=== PATIENT | male | born 1930 | race Caucasian/White ===

== ENCOUNTER 2017-01-21 11:30 | Emergency (ER) | payer MEDICARE, BC, OTHER ==
[2017-01-21] MEDS ORDERED: TOPICAL SKIN ADHESIVE 1 EACH AMP TOPICAL STA (11:56)
[2017-01-21] MEDS ORDERED: SODIUM CHLORIDE 0.9% 1,000 ML IV STA (11:56)
[2017-01-21] MEDS ORDERED: DIPH,PERTUS(ACELL)TETVAC-LF 0.5 ML VIAL IM ONE (11:56)
[2017-01-21] MEDS ORDERED: MECLIZINE 12.5 MG TAB PO STA (11:56)
[2017-01-21] MEDS ORDERED: METOCLOPRAMIDE 5 MG/ML 2 ML VIAL IVP STA (11:56)
[2017-01-21] MEDS ORDERED: SCOPOLAMINE 1.5MG/72HR PATCH TRANSDERM STA (11:57)
--- NOTE | 2017-01-21 12:00 | ED ---
General Adult HPI - General Chief complaint: Dizziness Stated complaint: head injury from fall, vomiting, dizziness Time Seen by Provider: 01/21/17 11:46 Source: patient, family, RN notes reviewed Mode of arrival: wheelchair Limitations: no limitations - History of Present Illness Initial comments: Patient is a pleasant 86-year-old male presenting to the emergency department with dizziness. Majority of history is taken from the . Symptoms have recurred previously associated with vertigo. Symptoms seem worse today. Patient has had nausea with some vomiting. Patient did fall and hit his head. Patient believes female passed out for a second. No other injuries. No neck or back pain. No chest pain or dyspnea. No abdominal pain. Unclear last tetanus immunization. Patient states every time he moves he gets more dizzy. Symptoms improved with rest. - Related Data Home Medications Medication Instructions Recorded Confirmed ALPRAZolam [Xanax] 0.5 mg PO BID PRN 01/21/17 01/21/17 ARIPiprazole [Abilify] 2 mg PO HS 01/21/17 01/21/17 Allopurinol [Zyloprim] 100 mg PO BID 01/21/17 01/21/17 Aspirin EC [Ecotrin Low Dose] 81 mg PO DAILY 01/21/17 01/21/17 Atorvastatin [Lipitor] 40 mg PO DAILY 01/21/17 01/21/17 Cinacalcet HCl [Sensipar] 30 mg PO MOFR 01/21/17 01/21/17 Ofbexnzuxisydn-ZU-Ujjqtuipww 1 tab PO DAILY 01/21/17 01/21/17 [Folbic] DULoxetine HCL [Cymbalta] 30 mg PO DAILY 01/21/17 01/21/17 Digoxin [Lanoxin] 125 mcg PO DAILY 01/21/17 01/21/17 Diphenox-Atrop 2.5-0.025 mg 2 tab PO TID PRN 01/21/17 01/21/17 [Lomotil] Furosemide [Lasix] 40 mg PO DAILY 01/21/17 01/21/17 Ipratropium Nebulized [Atrovent 0.5 mg INHALATION RT-QID 01/21/17 01/21/17 Nebulized] Isosorbide Mononitrate ER [Imdur] 30 mg PO DAILY 01/21/17 01/21/17 Levothyroxine Sodium [Synthroid] 125 mcg PO DAILY 01/21/17 01/21/17 Meclizine [Antivert] 25 mg PO TID 01/21/17 01/21/17 Memantine [Namenda] 10 mg PO AC-BID 01/21/17 01/21/17 Metoprolol Succinate (ER) [Toprol 12.5 mg PO BID 01/21/17 01/21/17 XL] Mirtazapine [Remeron] 30 mg PO HS 01/21/17 01/21/17 Nitroglycerin Sl Tabs [Nitrostat] 0.4 mg SUBLINGUAL Q5M PRN 01/21/17 01/21/17 Tamsulosin [Flomax] 0.4 mg PO DAILY 01/21/17 01/21/17 Valsartan [Diovan] 80 mg PO DAILY 01/21/17 01/21/17 Allergies Allergy/AdvReac Type Severity Reaction Status Date / Time No Known Allergies Allergy Verified 01/21/17 13:21 Review of Systems ROS Statement: Those systems with pertinent positive or pertinent negative responses have been documented in the HPI. ROS Other: All systems not noted in ROS Statement are negative. Constitutional: Denies: fever Eyes: Denies: eye pain ENT: Denies: ear pain Respiratory: Denies: cough Cardiovascular: Denies: chest pain Endocrine: Denies: fatigue Gastrointestinal: Denies: abdominal pain Genitourinary: Denies: dysuria Musculoskeletal: Denies: back pain Skin: Denies: rash Neurological: Reports: vertigo. Denies: weakness Past Medical History Past Medical History: COPD, Dementia, Renal Disease Additional Past Medical History / Comment(s): aneurysm, colon cancer History of Any Multi-Drug Resistant Organisms: None Reported Past Surgical History: Heart Catheterization With Stent Past Psychological History: No Psychological Hx Reported Smoking Status: Former smoker Past Alcohol Use History: None Reported Past Drug Use History: None Reported General Exam Limitations: no limitations General appearance: alert, in no apparent distress Head exam: Present: other (Forehead soft tissue swelling and laceration) Eye exam: Present: normal appearance, PERRL ENT exam: Present: normal oropharynx Neck exam: Present: normal inspection. Absent: tenderness Respiratory exam: Present: normal lung sounds bilaterally Cardiovascular Exam: Present: bradycardia GI/Abdominal exam: Present: soft. Absent: tenderness Extremities exam: Present: normal inspection, full ROM. Absent: tenderness Neurological exam: Present: alert, CN II-XII intact. Absent: motor sensory deficit Expanded Cranial nerves: EOM's Intact: Normal Motor strength exam: RUE: 5, LUE: 5, RLE: 5, LLE: 5 Psychiatric exam: Present: normal affect, normal mood Skin exam: Present: other (Forehead laceration and soft tissue swelling) Course Vital Signs 01/21/17 01/21/17 01/21/17 11:32 12:52 14:19 Temperature 97.5 F L Pulse Rate 48 L 51 L 50 L Respiratory 20 16 20 Rate Blood Pressure 150/80 161/87 187/98 O2 Sat by Pulse 94 L 96 94 L Oximetry - Reevaluation(s) Reevaluation #1: 01/21/17 14:13 Case was discussed in detail with neurology, Dr. Kahn who does recommend transfer. Patient reevaluated and feels better and is more conversive. Patient and family updated on results and plan. EKG Findings - EKG Comments: EKG Findings:: Paced rhythm at 50. Motion artifact is present. OH 134. QRS 118. QT 402. QTC 366. Left axis. Left anterior fascicular block. Poor R- wave progression. No acute ST change. Procedures - Laceration Laceration #1 Consent Obtained: verbal consent Time Out Performed: Yes Indication: laceration Site: face (Forehead) Size (cm): 3 Description: linear Pre-repair: irrigated extensively Type of Sutures: other (Closed with Dermabond) Patient Tolerated Procedure: well, no complications Medical Decision Making - Medical Decision Making Case was discussed with Dr. Holden from [facility], who will accept transfer. - Lab Data Result diagrams: 01/21/17 12:10 01/21/17 12:10 Lab Results 01/21/17 01/21/17 01/21/17 Range/Units 12:10 12:10 12:10 WBC 9.3 (3.8-10.6) k/uL RBC 4.82 (4.30-5.90) m/uL Hgb 14.4 (13.0-17.5) gm/dL Hct 44.0 (39.0-53.0) % MCV 91.3 (80.0-100.0) fL MCH 30.0 (25.0-35.0) pg MCHC 32.8 (31.0-37.0) g/dL RDW 16.6 H (11.5-15.5) % Plt Count 169 (150-450) k/uL Neutrophils % 84 % Lymphocytes % 9 % Monocytes % 4 % Eosinophils % 1 % Basophils % 0 % Neutrophils # 7.8 H (1.3-7.7) k/uL Lymphocytes # 0.8 L (1.0-4.8) k/uL Monocytes # 0.4 (0-1.0) k/uL Eosinophils # 0.1 (0-0.7) k/uL Basophils # 0.0 (0-0.2) k/uL Anisocytosis Slight PT (9.0-12.0) sec INR (<1.2) APTT (22.0-30.0) sec Sodium 144 (137-145) mmol/L Potassium 4.1 (3.5-5.1) mmol/L Chloride 108 H (98-107) mmol/L Carbon Dioxide 23 (22-30) mmol/L Anion Gap 13 mmol/L BUN 24 H (9-20) mg/dL Creatinine 1.52 H (0.66-1.25) mg/dL Est GFR (MDRD) Af Amer 53 (>60 ml/min/1.73 sqM) Est GFR (MDRD) Non-Af 44 (>60 ml/min/1.73 sqM) Glucose 134 H (74-99) mg/dL Calcium 9.8 (8.4-10.2) mg/dL Magnesium 1.9 (1.6-2.3) mg/dL Total Bilirubin 0.9 (0.2-1.3) mg/dL AST 31 (17-59) U/L ALT 45 (21-72) U/L Alkaline Phosphatase 159 H (38-126) U/L Total Creatine Kinase 112 (55-170) U/L CK-MB (CK-2) 1.6 (0.0-2.4) ng/mL CK-MB (CK-2) Rel Index 1.4 Troponin I <0.012 (0.000-0.034) ng/mL Total Protein 7.1 (6.3-8.2) g/dL Albumin 4.2 (3.5-5.0) g/dL Urine Color Urine Appearance (Clear) Urine pH (5.0-8.0) Ur Specific [place] (1.001-1.035) Urine Protein (Negative) Urine Glucose (UA) (Negative) Urine Ketones (Negative) Urine Blood (Negative) Urine Nitrite (Negative) Urine Bilirubin (Negative) Urine Urobilinogen (<2.0) mg/dL Ur Leukocyte Esterase (Negative) 01/21/17 01/21/17 Range/Units 12:10 12:56 WBC (3.8-10.6) k/uL RBC (4.30-5.90) m/uL Hgb (13.0-17.5) gm/dL Hct (39.0-53.0) % MCV (80.0-100.0) fL MCH (25.0-35.0) pg MCHC (31.0-37.0) g/dL RDW (11.5-15.5) % Plt Count (150-450) k/uL Neutrophils % % Lymphocytes % % Monocytes % % Eosinophils % % Basophils % % Neutrophils # (1.3-7.7) k/uL Lymphocytes # (1.0-4.8) k/uL Monocytes # (0-1.0) k/uL Eosinophils # (0-0.7) k/uL Basophils # (0-0.2) k/uL Anisocytosis PT 11.0 (9.0-12.0) sec INR 1.1 (<1.2) APTT 23.2 (22.0-30.0) sec Sodium (137-145) mmol/L Potassium (3.5-5.1) mmol/L Chloride (98-107) mmol/L Carbon Dioxide (22-30) mmol/L Anion Gap mmol/L BUN (9-20) mg/dL Creatinine (0.66-1.25) mg/dL Est GFR (MDRD) Af Amer (>60 ml/min/1.73 sqM) Est GFR (MDRD) Non-Af (>60 ml/min/1.73 sqM) Glucose (74-99) mg/dL Calcium (8.4-10.2) mg/dL Magnesium (1.6-2.3) mg/dL Total Bilirubin (0.2-1.3) mg/dL AST (17-59) U/L ALT (21-72) U/L Alkaline Phosphatase (38-126) U/L Total Creatine Kinase (55-170) U/L CK-MB (CK-2) (0.0-2.4) ng/mL CK-MB (CK-2) Rel Index Troponin I (0.000-0.034) ng/mL Total Protein (6.3-8.2) g/dL Albumin (3.5-5.0) g/dL Urine Color Colorless Urine Appearance Clear (Clear) Urine pH 5.5 (5.0-8.0) Ur Specific [place] 1.006 (1.001-1.035) Urine Protein Negative (Negative) Urine Glucose (UA) Negative (Negative) Urine Ketones Negative (Negative) Urine Blood Negative (Negative) Urine Nitrite Negative (Negative) Urine Bilirubin Negative (Negative) Urine Urobilinogen <2.0 (<2.0) mg/dL Ur Leukocyte Esterase Negative (Negative) - Radiology Data Radiology results: image reviewed (Computed tomography scan of the brain shows 3.5 mm subdural hematoma. Attenuation suggestive acute rather than acute. Chest x-ray shows interstitial markings increased. Prior endovascular aortic stent graft) Disposition Clinical Impression: Subdural hematoma Disposition: OTHER INSTITUTION NOT DEFINED Referrals: Harvinder Jimenez MD [Primary Care Provider] - 1-2 days Time of Disposition: 14:25 - Out of Hospital Transfer - Req. Specs Out of Hospital Transfer - Requested Specifics: Other Emergency Center
[2017-01-21 12:30] LABS: Calcium 9.8 mg/dL (8.4-10.2); Magnesium 1.9 mg/dL (1.6-2.3); Potassium 4.1 mmol/L (3.5-5.1); Total Bilirubin 0.9 mg/dL (0.2-1.3); Total Protein 7.1 g/dL (6.3-8.2)
[2017-01-21 12:35] LABS: Anisocytosis Slight; Basophils % (A) 0 %; CH 30.8; Eosinophils # (A) 0.1 k/uL (0-0.7); Eosinophils % (A) 1 %; HGB 14.4 gm/dL (13.0-17.5); Luc # (Auto) 0.09; Luc % (Auto) 1; Lymphocytes # (A) 0.8 k/uL (1.0-4.8); Lymphocytes % (A) 9 %; MCHC 32.8 g/dL (31.0-37.0); MCV 91.3 fL (80.0-100.0); Mean Platelet Volume 7.4; Monocytes # (A) 0.4 k/uL (0-1.0); Monocytes % (A) 4 %; Neutrophils # (A) 7.8 k/uL (1.3-7.7); Neutrophils % (A) 84 %; RBC 4.82 m/uL (4.30-5.90); RDW 16.6 % (11.5-15.5); WBC 9.3 k/uL (3.8-10.6); WBC (Perox) 9.34
[2017-01-21 12:47] LABS: Creatine Kinase 112 U/L (55-170)
[2017-01-21 12:48] LABS: INR 1.1 (<1.2); Partial Thromboplastin Time 23.2 sec (22.0-30.0)
--- NOTE | 2017-01-21 12:50 | CT ---
EXAMINATION TYPE: CT brain wo con DATE OF EXAM: 01/21/2017 COMPARISON: 10/17/2014 HISTORY: 86-year-old male Patient fell and hit left anterior superior forehead, laceration at site. Patient complains of headache, dizziness, nausea, and vomiting post fall. TECHNIQUE: Examination was done in axial plane without intravenous contrast. Coronal and sagittal r econstructions performed. CT DLP: 904.1 mGycm Automated exposure control for dose reduction was used. FINDINGS: Skin laceration with a moderate to large left frontal scalp hematoma. There is a tiny 3.5 mm thick isodense extra-axial collection along the left frontal convexity. No cherelle varial fracture. Otherwise, no evidence for acute intracranial hemorrhage, acute ischemic change, mass, mass effect, o r midline shift. No effacement of cerebral sulci. Garcia-white matter differentiation is maintained. Moderate patchy white matter hypodensities. Moderate generalized supratentorial volume loss with sec ondary prominence to the ventricular system. Partial opacification of the right greater than left mastoid air cells. Opacification extends into th e right epitympanum of the middle ear cavity. Mild mucosal thickening in the ethmoid air cells. IMPRESSION: 1. Focal left frontal soft tissue injury with scalp hematoma. No underlying calvarial fracture. 2. There is a 3.5 mm crescentic extra-axial collection along the left frontal convexity. The attenuat ion suggests a subacute rather than acute tiny subdural hematoma. No mass effect or midline shift. No acute intracranial bleeding seen. Follow-up as clinically indicated. 3. Moderate atrophy and changes of chronic small vessel ischemic disease.
--- NOTE | 2017-01-21 12:53 | XR ---
EXAMINATION TYPE: XR chest 2V DATE OF EXAM: 01/21/2017 COMPARISON: 03/09/2012 HISTORY: 86-year-old male with dizziness TECHNIQUE: Frontal and lateral views FINDINGS: Left anterior chest wall pacemaker generator with right atrial and right ventricular leads. Endovascu lar stent graft repair of the distal arch and descending thoracic aorta redemonstrated. Heart is bord rajiv to mildly enlarged. Mild diffuse interstitial and vascular prominence. Some patchy medial righ t basilar opacity is noted. ACDF hardware. End-stage degenerative changes at the left greater than ri ght shoulders. IMPRESSION: 1. Correlate to exclude CHF with mild pulmonary vascular congestion. 2. Patchy medial right basilar atelectasis or early infiltrate. 3. Prior endovascular aortic stent graft repair.
[2017-01-21 12:58] LABS: Creatine Kinase MB 1.6 ng/mL (0.0-2.4); Troponin I <0.012 ng/mL (0.000-0.034)
[2017-01-21 13:07] LABS: Appearance,Urine Clear (Clear); Bilirubin,Urine Negative (Negative); Glucose,Urine (UA) Negative (Negative); Ketones,Urine Negative (Negative); Leukocyte Esterase,Urine Negative (Negative); Nitrite,Urine Negative (Negative); PH, Urine 5.5 (5.0-8.0); Protein,Urine Negative (Negative); Specific Gravity,Urine 1.006 (1.001-1.035); UA Billing (MACRO vs. MICRO) CHEM; Urobilinogen,Urine <2.0 mg/dL (<2.0)
[2017-01-21] MEDS ORDERED: LORazepam 2 MG/ML INJ IV STA (14:32)
[2017-01-21 14:42] VITALS: BP 179/83; PULSE 51; RESP 18; TEMP 96.9
== END 2017-01-21 15:04 | disposition short-term general hospital (02) ==
LOC: EC 11:30
DX: S06.5X9A Traumatic subdural hemorrhage with loss of consciousness of unspecified duration, initial encounter (principal); S01.81XA Laceration without foreign body of other part of head, initial encounter; J44.9 Chronic obstructive pulmonary disease, unspecified; F03.90 Unspecified dementia, unspecified severity, without behavioral disturbance, psychotic disturbance, mood disturbance, and anxiety; Z23 Encounter for immunization; Z85.038 Personal history of other malignant neoplasm of large intestine; Z87.891 Personal history of nicotine dependence; Z79.51 Long term (current) use of inhaled steroids; Z79.82 Long term (current) use of aspirin; Z79.899 Other long term (current) drug therapy; W01.198A Fall on same level from slipping, tripping and stumbling with subsequent striking against other object, initial encounter
CPT/HCPCS: 96361 ×4; 12013 ×2; 90471 ×2; 96374 ×2; 96375 ×2; 99285 ×2; 36415; 93005; 80053; 82550; 82553; 80162; 83735; 84484; 85025; 85610; 85730; 81003; 71020; 70450; 90715; J2060; J2765

== ENCOUNTER 2018-09-26 12:58 | Observation (INO) | payer MEDICARE, OTHER ==
[2018-09-26] MEDS ORDERED: DIAZEPAM 5 MG/ML 2 ML INJ IVP STA (13:32)
--- NOTE | 2018-09-26 13:36 | ED ---
General Adult HPI - General Chief complaint: Neuro Symptoms/Deficit Stated complaint: Rt side weakness/dizziness Time Seen by Provider: 09/26/18 13:00 Source: patient, family, RN notes reviewed Mode of arrival: wheelchair Limitations: physical limitation - History of Present Illness Initial comments: This is an 88-year-old male who presents emergency Department with a past medical history significant for colon cancer which according to his he has been treated for. Patient also has a history of vertigo and has been on Antivert all week and it has not improved his symptoms. Patient states the dizziness seems to be getting worse so his primary told to come the emergency department. Patient states anytime he moves his head he gets extremely dizzy and nauseated but has yet to vomit. Patient denies any increased deficit is hearing patient denies any new tinnitus. Patient denies any headache. Patient denies any palpitations chest pain difficulty breathing shortness of breath. Patient denies abdominal pain. Patient states it feels like it's in a fall but not pass out. - Related Data Home Medications Medication Instructions Recorded Confirmed ALPRAZolam [Xanax] 0.5 mg PO BID PRN 01/21/17 09/26/18 ARIPiprazole [Abilify] 2 mg PO HS 01/21/17 09/26/18 Aspirin EC [Ecotrin Low Dose] 81 mg PO DAILY 01/21/17 09/26/18 Atorvastatin [Lipitor] 40 mg PO DAILY 01/21/17 09/26/18 Wqcuoohxizqkqs-OI-Oufwmhqcqe 1 tab PO DAILY 01/21/17 09/26/18 [Folbic] DULoxetine HCL [Cymbalta] 30 mg PO DAILY 01/21/17 09/26/18 Digoxin [Lanoxin] 125 mcg PO DAILY 01/21/17 09/26/18 Diphenox-Atrop 2.5-0.025 mg 2 tab PO TID PRN 01/21/17 09/26/18 [Lomotil] Furosemide [Lasix] 40 mg PO DAILY 01/21/17 09/26/18 Levothyroxine Sodium [Synthroid] 125 mcg PO DAILY 01/21/17 09/26/18 Meclizine [Antivert] 25 mg PO TID 01/21/17 09/26/18 Memantine [Namenda] 10 mg PO AC-BID 01/21/17 09/26/18 Metoprolol Succinate (ER) [Toprol 12.5 mg PO BID 01/21/17 09/26/18 XL] Mirtazapine [Remeron] 30 mg PO HS 01/21/17 09/26/18 Nitroglycerin Sl Tabs [Nitrostat] 0.4 mg SUBLINGUAL Q5M PRN 01/21/17 09/26/18 Allergies Allergy/AdvReac Type Severity Reaction Status Date / Time warfarin [From Coumadin] AdvReac Unknown Verified 09/26/18 14:00 Review of Systems ROS Statement: Those systems with pertinent positive or pertinent negative responses have been documented in the HPI. ROS Other: All systems not noted in ROS Statement are negative. Past Medical History Past Medical History: Chest Pain / Angina, COPD, Dementia, Hyperlipidemia, Hypertension, Myocardial Infarction (ID), Renal Disease Additional Past Medical History / Comment(s): aneurysm, colon cancer History of Any Multi-Drug Resistant Organisms: None Reported Past Surgical History: Heart Catheterization With Stent Additional Past Surgical History / Comment(s): aneurysm repair to heart and abd Past Psychological History: Depression Smoking Status: Former smoker Past Alcohol Use History: None Reported Past Drug Use History: None Reported General Exam - General Exam Comments Initial Comments: GENERAL: Patient is well-developed and well-nourished. Patient is nontoxic and well- hydrated and is in no acute distress. ENT: Neck is soft and supple. No significant lymphadenopathy is noted. Oropharynx is clear. Moist mucous membranes. Neck has full range of motion without eliciting any pain. EYES: The sclera were anicteric and conjunctiva were pink and moist. Extraocular movements were intact and pupils were equal round and reactive to light. Eyelids were unremarkable. PULMONARY: Unlabored respirations. Good breath sounds bilaterally. No audible rales rhonchi or wheezing was noted. CARDIOVASCULAR: There is a regular rate and rhythm without any murmurs gallops or rubs. ABDOMEN: Soft and nontender with normal bowel sounds. No palpable organomegaly was noted. There is no palpable pulsatile mass. SKIN: Skin is clear with no lesions or rashes and otherwise unremarkable. NEUROLOGIC: Patient is alert and oriented x3. Cranial nerves II through XII are grossly intact. Motor and sensory are also intact. Normal speech, volume and content. Symmetrical smile. Cerebellar testing finger to nose is normal bilaterally MUSCULOSKELETAL: Normal extremities with adequate strength and full range of motion. No lower extremity swelling or edema. No calf tenderness. LYMPHATICS: No significant lymphadenopathy is noted PSYCHIATRIC: Normal psychiatric evaluation. Limitations: physical limitation Course Vital Signs 09/26/18 09/26/18 13:00 15:00 Temperature 98.1 F Pulse Rate 49 L 50 L Respiratory 18 18 Rate Blood Pressure 152/78 158/92 O2 Sat by Pulse 99 96 Oximetry Medical Decision Making - Medical Decision Making EKG shows a paced rhythm with an occasional PVC at a rate of 56 bpm DC interval is 242 QRS is 104 QT interval 424 QTC is 409. Patient is not experiencing any chest pain I will begin to reevaluate the patient he continued to be dizzy. I spoke with Dr. Guevara he agreed to admit the patient he wanted a consult for neurology. - Lab Data Result diagrams: 09/26/18 13:50 09/26/18 13:50 Lab Results 09/26/18 09/26/18 09/26/18 Range/Units 13:50 13:50 13:50 WBC 10.3 (3.8-10.6) k/uL RBC 4.97 (4.30-5.90) m/uL Hgb 14.4 (13.0-17.5) gm/dL Hct 43.8 (39.0-53.0) % MCV 88.1 (80.0-100.0) fL MCH 29.0 (25.0-35.0) pg MCHC 32.9 (31.0-37.0) g/dL RDW 14.8 (11.5-15.5) % Plt Count 199 (150-450) k/uL Neutrophils % 79 % Lymphocytes % 12 % Monocytes % 5 % Eosinophils % 2 % Basophils % 0 % Neutrophils # 8.2 H (1.3-7.7) k/uL Lymphocytes # 1.2 (1.0-4.8) k/uL Monocytes # 0.5 (0-1.0) k/uL Eosinophils # 0.2 (0-0.7) k/uL Basophils # 0.0 (0-0.2) k/uL PT 10.9 (9.0-12.0) sec INR 1.0 (<1.2) APTT 22.4 (22.0-30.0) sec Sodium 144 (137-145) mmol/L Potassium 4.6 (3.5-5.1) mmol/L Chloride 109 H (98-107) mmol/L Carbon Dioxide 25 (22-30) mmol/L Anion Gap 10 mmol/L BUN 25 H (9-20) mg/dL Creatinine 1.65 H (0.66-1.25) mg/dL Est GFR (CKD-EPI)AfAm 43 (>60 ml/min/1.73 sqM) Est GFR (CKD-EPI)NonAf 37 (>60 ml/min/1.73 sqM) Glucose 101 H (74-99) mg/dL Calcium 9.9 (8.4-10.2) mg/dL Magnesium 2.3 (1.6-2.3) mg/dL Total Bilirubin 1.4 H (0.2-1.3) mg/dL AST 33 (17-59) U/L ALT 38 (21-72) U/L Alkaline Phosphatase 139 H (38-126) U/L Troponin I (0.000-0.034) ng/mL Total Protein 7.2 (6.3-8.2) g/dL Albumin 4.4 (3.5-5.0) g/dL 09/26/18 Range/Units 13:50 WBC (3.8-10.6) k/uL RBC (4.30-5.90) m/uL Hgb (13.0-17.5) gm/dL Hct (39.0-53.0) % MCV (80.0-100.0) fL MCH (25.0-35.0) pg MCHC (31.0-37.0) g/dL RDW (11.5-15.5) % Plt Count (150-450) k/uL Neutrophils % % Lymphocytes % % Monocytes % % Eosinophils % % Basophils % % Neutrophils # (1.3-7.7) k/uL Lymphocytes # (1.0-4.8) k/uL Monocytes # (0-1.0) k/uL Eosinophils # (0-0.7) k/uL Basophils # (0-0.2) k/uL PT (9.0-12.0) sec INR (<1.2) APTT (22.0-30.0) sec Sodium (137-145) mmol/L Potassium (3.5-5.1) mmol/L Chloride (98-107) mmol/L Carbon Dioxide (22-30) mmol/L Anion Gap mmol/L BUN (9-20) mg/dL Creatinine (0.66-1.25) mg/dL Est GFR (CKD-EPI)AfAm (>60 ml/min/1.73 sqM) Est GFR (CKD-EPI)NonAf (>60 ml/min/1.73 sqM) Glucose (74-99) mg/dL Calcium (8.4-10.2) mg/dL Magnesium (1.6-2.3) mg/dL Total Bilirubin (0.2-1.3) mg/dL AST (17-59) U/L ALT (21-72) U/L Alkaline Phosphatase (38-126) U/L Troponin I <0.012 (0.000-0.034) ng/mL Total Protein (6.3-8.2) g/dL Albumin (3.5-5.0) g/dL Disposition Clinical Impression: Severe vertigo Disposition: ADMITTED IP TO THIS HOSP Referrals: Harvinder Jimenez MD [Primary Care Provider] - 1-2 days Time of Disposition: 16:19
[2018-09-26 14:08] LABS: Basophils % (A) 0 %; Eosinophils # (A) 0.2 k/uL (0-0.7); Eosinophils % (A) 2 %; HCT 43.8 % (39.0-53.0); HGB 14.4 gm/dL (13.0-17.5); Lymphocytes # (A) 1.2 k/uL (1.0-4.8); Lymphocytes % (A) 12 %; MCHC 32.9 g/dL (31.0-37.0); MCV 88.1 fL (80.0-100.0); Mean Platelet Volume 6.8; Monocytes # (A) 0.5 k/uL (0-1.0); Monocytes % (A) 5 %; Neutrophils # (A) 8.2 k/uL (1.3-7.7); Neutrophils % (A) 79 %; Platelet Count 199 k/uL (150-450); RBC 4.97 m/uL (4.30-5.90); RDW 14.8 % (11.5-15.5); WBC 10.3 k/uL (3.8-10.6)
[2018-09-26 14:16] LABS: Partial Thromboplastin Time 22.4 sec (22.0-30.0); Prothrombin Time 10.9 sec (9.0-12.0)
[2018-09-26 14:19] LABS: Albumin 4.4 g/dL (3.5-5.0); Calcium 9.9 mg/dL (8.4-10.2); Magnesium 2.3 mg/dL (1.6-2.3); Potassium 4.6 mmol/L (3.5-5.1); Total Bilirubin 1.4 mg/dL (0.2-1.3); Total Protein 7.2 g/dL (6.3-8.2)
--- NOTE | 2018-09-26 14:56 | CT ---
EXAMINATION TYPE: CT brain wo con DATE OF EXAM: 09/26/2018 COMPARISON: 01/21/2017 HISTORY: Right side weakness and dizziness CT DLP: 1168.4 mGycm Automated exposure control for dose reduction was used. FINDINGS: There is cerebral cortical atrophy. There is no mass effect nor midline shift. There is no sign of in tracranial hemorrhage. The calvarium is intact. IMPRESSION: CEREBRAL ATROPHY. NO ACUTE INTRACRANIAL ABNORMALITY. NO CHANGE COMPARED TO OLD EXAM.
--- NOTE | 2018-09-26 15:04 | XR ---
EXAMINATION TYPE: XR chest 2V DATE OF EXAM: 09/26/2018 COMPARISON: 01/21/2017 HISTORY: Dizziness TECHNIQUE: Frontal and lateral views of the chest are obtained. FINDINGS: There is no heart failure nor confluent pneumonic infiltrate. There is thoracic aortic ane urysm with stent in the descending thoracic aorta. There is spurring in the thoracic spine. There is no pleural effusion. There is left axillary pacemaker. IMPRESSION: Thoracic aortic aneurysm. No active cardiopulmonary disease. There is improved inspirati on compared to last exam. There is clearing of mild pulmonary congestion compared to last exam.
[2018-09-26] MEDS ORDERED: SODIUM CHLORIDE 0.9% 1,000 ML IV ONE (16:19)
[2018-09-26] MEDS ORDERED: MECLIZINE 25 MG TAB PO PRN (16:21)
--- NOTE | 2018-09-26 18:36 | P.CNNES ---
History of Present Illness Consult date: 09/26/18 Reason for Consult: Vertigo History of Present Illness: Patient is a 88-year-old male, who has history of intermittent dizziness and vertigo for years. Patient states that for the last 50 years he has history of motion sickness whenever he sits in the plane or the car. In the last 2 years it has got worse. He takes Antivert as needed. In the last 1 week the dizziness has gotten worse. Any time he moves his head or neck, he gets dizziness which lasts for a minute or so. If he sits up, the dizziness will persist, until he lays down. If he is not moving, he denies any dizziness or vertigo. He does have significant hearing loss bilaterally, also has intermittent tinnitus. He does not remember seeing an ENT specialist in the past. Patient denies any focal symptoms. Denies any diplopia. Patient had computed tomography scan of the head, which revealed cerebral atrophy. No acute intracranial process. No evidence of paranasal sinus disease. No evidence of excessive cerumen in the external auditory canal. Chest x-ray showed thoracic aortic aneurysm. There is improvement inspiration compared to last exam. EKG showed atrial paced rhythm with prolonged AV conduction with occasional supraventricular complexes and with occasional premature ventricular complexes. Review of Systems As per HPI. Denies any focal numbness tingling or weakness. Denies any neck or back pain. Denies any shortness of breath wheezing or cough. Complains of significant hearing loss, occasional tinnitus. Past Medical History Past Medical History: Chest Pain / Angina, COPD, Dementia, Hyperlipidemia, Hypertension, Myocardial Infarction ([place]), Renal Disease Additional Past Medical History / Comment(s): aneurysm, colon cancer History of Any Multi-Drug Resistant Organisms: None Reported Past Surgical History: Heart Catheterization With Stent Additional Past Surgical History / Comment(s): aneurysm repair to heart and abd Past Psychological History: Depression Smoking Status: Former smoker Past Alcohol Use History: None Reported Past Drug Use History: None Reported Medications and Allergies Home Medications Medication Instructions Recorded Confirmed Type ALPRAZolam [Xanax] 0.5 mg PO BID PRN 01/21/17 09/26/18 History ARIPiprazole [Abilify] 2 mg PO HS 01/21/17 09/26/18 History Aspirin EC [Ecotrin Low Dose] 81 mg PO DAILY 01/21/17 09/26/18 History Atorvastatin [Lipitor] 40 mg PO DAILY 01/21/17 09/26/18 History Powbzxozdyskdp-OT-Kmdeiruwhe 1 tab PO DAILY 01/21/17 09/26/18 History [Folbic] DULoxetine HCL [Cymbalta] 30 mg PO DAILY 01/21/17 09/26/18 History Digoxin [Lanoxin] 125 mcg PO DAILY 01/21/17 09/26/18 History Diphenox-Atrop 2.5-0.025 mg 2 tab PO TID PRN 01/21/17 09/26/18 History [Lomotil] Furosemide [Lasix] 40 mg PO DAILY 01/21/17 09/26/18 History Levothyroxine Sodium [Synthroid] 125 mcg PO DAILY 01/21/17 09/26/18 History Meclizine [Antivert] 25 mg PO TID 01/21/17 09/26/18 History Memantine [Namenda] 10 mg PO AC-BID 01/21/17 09/26/18 History Metoprolol Succinate (ER) [Toprol 12.5 mg PO BID 01/21/17 09/26/18 History XL] Mirtazapine [Remeron] 30 mg PO HS 01/21/17 09/26/18 History Nitroglycerin Sl Tabs [Nitrostat] 0.4 mg SUBLINGUAL Q5M PRN 01/21/17 09/26/18 History Allergies Allergy/AdvReac Type Severity Reaction Status Date / Time warfarin [From Coumadin] AdvReac Unknown Verified 09/26/18 14:00 Physical Examination - Vital Signs Vital Signs: Vital Signs Temp Pulse Resp BP Pulse Ox 09/26/18 16:31 98.4 F 50 L 18 136/87 96 09/26/18 15:00 50 L 18 158/92 96 09/26/18 13:00 98.1 F 49 L 18 152/78 99 Intake and Output 09/26/18 09/26/18 09/26/18 06:59 14:59 22:59 Other: Weight 85.275 kg Results Patient's folic acid is normal previously. TSH has not been checked since 2013. - Laboratory Findings CBC and BMP: 09/26/18 13:50 09/26/18 13:50 Abnormal Lab Findings: Abnormal Labs 09/26/18 09/26/18 13:50 13:50 Neutrophils # 8.2 H Chloride 109 H BUN 25 H Creatinine 1.65 H Glucose 101 H Total Bilirubin 1.4 H Alkaline Phosphatase 139 H Assessment and Plan Assessment: * Probable benign positional peripheral vertigo. Rule out Mnire's disease. 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 Plan: * Suggest vestibular rehabilitation for possible BPPV. * Consider ENT testing to evaluate for electronystagmogram, and rule out Mnire's disease. This can be performed as an outpatient. * Continue Antivert as needed. * We will check B12, folate, TSH and a carotid Doppler.
[2018-09-26] MEDS ORDERED: DIPHENOX-ATROP 2.5-0.025 MG 1 EACH TAB PO PRN (21:28)
[2018-09-26] MEDS ORDERED: NITROGLYCERIN SL TABS 0.4 MG TAB SUBLINGUAL PRN (21:28)
[2018-09-26] MEDS ORDERED: ALPRAZolam 0.5 MG TAB PO PRN (21:28)
[2018-09-26] MEDS ORDERED: ARIPiprazole 2 MG TAB PO SCH (21:45)
[2018-09-26] MEDS ORDERED: MIRTAZAPINE 15 MG TAB PO SCH (21:45)
[2018-09-26] MEDS: ATORVASTATIN 40 MG TAB PO SCH (22:05)
[2018-09-26] MEDS: MEMANTINE 10 MG TAB PO SCH (22:05)
[2018-09-26] MEDS: DULoxetine HCL 30 MG CAPSULE.DR PO SCH (22:05)
[2018-09-26] MEDS: METOPROLOL SUCCINATE (ER) 25 MG TAB.ER.24H PO SCH (22:06)
[2018-09-27] MEDS ORDERED: LEVOTHYROXINE 125 MCG TAB PO SCH (06:30)
[2018-09-27] MEDS: ATORVASTATIN 40 MG TAB PO SCH (08:21)
[2018-09-27] MEDS: METOPROLOL SUCCINATE (ER) 25 MG TAB.ER.24H PO SCH (08:22)
[2018-09-27] MEDS: DULoxetine HCL 30 MG CAPSULE.DR PO SCH (08:22)
[2018-09-27] MEDS: MEMANTINE 10 MG TAB PO SCH ×2 (08:22→17:27)
[2018-09-27] MEDS ORDERED: ASPIRIN 81 MG PO SCH (09:00)
[2018-09-27] MEDS ORDERED: DIGOXIN 125 MCG TAB PO SCH (09:00)
[2018-09-27] MEDS ORDERED: FUROSEMIDE 40 MG TAB PO SCH (09:00)
--- NOTE | 2018-09-27 10:15 | US ---
EXAMINATION TYPE: US carotid duplex BILAT DATE OF EXAM: 09/27/2018 COMPARISON: NONE CLINICAL HISTORY: Vertigo. Vertigo EXAM MEASUREMENTS: RIGHT: Peak Systolic Velocity (PSV) cm/sec ----- Right CCA: 65.1 ----- Right ICA: 68.6 ----- Right ECA: 95.2 ICA/CCA ratio: 1.1 RIGHT: End Diastole cm/sec ----- Right CCA: 11.0 ----- Right ICA: 18.8 ----- Right ECA: 0.0 LEFT: Peak Systolic Velocity (PSV) cm/sec ----- Left CCA: 74.7 ----- Left ICA: 91.9 ----- Left ECA: 82.0 ICA/CCA ratio: 1.2 LEFT: End Diastole cm/sec ----- Left CCA: 11.0 ----- Left ICA: 23.7 ----- Left ECA: 0.0 VERTEBRALS (direction of flow): Right Vertebral: Antegrade Left Vertebral: Antegrade Rhythm: Normal Mild plaque bilateral bifurcations. No evidence of increased velocities. IMPRESSION: Mild degree of grayscale atheromatous plaquing with no sonographically evident hemodynam ically significant stenosis within either visualized carotid arterial system. Criteria for Assigning % of Stenosis / Diameter reduction (Estimation based on the indirect measurements of the internal carotid artery velocities (ICA PSV). 1. Normal (no stenosis)=ICA PSV < 125 cm/s: ratio < 2.0: ICA EDV<40 cm/s. 2. Less than 50% stenosis=ICA PSV < 125 cm/s: ratio < 2.0: ICA EDV<40 cm/s. 3. 50 to 69% stenosis=ICA PSV of 125 to 230 cm/s: ration 2.0 ? 4.0: ICA EDV 40-100 cm/s. 4. Greater than 70% stenosis to near occlusion= ICA PSV > 230 cm/s: ratio > 4.0: ICA EDV > 100 cm/s. 5. Near occlusion= ICA PSV velocities may be low or undetectable: variable ratio and ICA EDV. 6. Total occlusion=unable to detect flow.
[2018-09-27 14:22] VITALS: BP 131/81; PULSE 53; RESP 16; TEMP 98.3
--- NOTE | 2018-09-27 17:33 | P.PN ---
Subjective Progress Note Date: 09/27/18 Patient states he is doing much better. Offers no new complaints. Patient was able to sit up, and the dizziness have improved. No new focal symptoms. Objective - Vital Signs Vital signs: Vital Signs Temp 98.3 F 09/27/18 14:06 Pulse 53 L 09/27/18 14:06 Resp 16 09/27/18 14:06 BP 131/81 09/27/18 14:06 Pulse Ox 98 09/27/18 14:06 Intake & Output 09/26/18 09/27/18 09/27/18 18:59 06:59 18:59 Intake Total 900 Balance 900 Weight 85.275 kg Intake: Oral 900 Other: Voiding Method Toilet Urinal # Voids 2 2 # Bowel Movements 1 - Exam Nonfocal. - Labs CBC & Chem 7: 09/26/18 13:50 09/26/18 13:50 Labs: Abnormal Lab Results - Last 24 Hours (Table) 09/27/18 Range/Units 08:08 Vitamin B12 1981.0 H (200.0-944.0) pg/mL Assessment and Plan Assessment: * Probable benign positional peripheral vertigo. Rule out Mnire's disease. 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 Plan: * Suggest vestibular rehabilitation for possible BPPV. * Consider ENT testing to evaluate for electronystagmogram, and rule out Mnire's disease. This can be performed as an outpatient. * Continue Antivert as needed. * B12 normal at 1980, folate 15.1, TSH 2.19 normal and a carotid Doppler showed no significant stenosis. * Neurologically clear for discharge.
--- NOTE | 2018-09-27 23:10 | P.HPIM ---
History of Present Illness H&P Date: 09/27/18 Chief Complaint: Dizziness History of present complaint: This is a very pleasant 88-year-old patient I saw this morning. Patient follows Dr. price . Patient has got multiple medical process. Including some that are stable including COPD, hypertension, hyperlipidemia, coronary artery disease. Patient wasn't one-week history of feeling dizzy. It is somewhat better with lying down than with activity. Patient does get some nausea. This could buzzing in both the ears. No fever no chills. It has been going on for about a week. Somewhat progressive and worse. Hence finally decided to get to the ER. Neurology was consulted. No fever or chills. No change in speech. No focal neurological symptoms. No headache. No double vision. Review of systems: GEN.: None EYES: None HEENT: None NECK: None RESPIRATORY: None CARDIOVASCULAR: None GASTROINTESTINAL: None GENITOURINARY: None MUSCULOSKELETAL: Pain in the joints LYMPHATICS: None HEMATOLOGICAL: None PSYCHIATRY: None NEUROLOGICAL: As above, uses a walker Family history: Alcoholism Social history: Did smoke in the past. . Does use a walker. Physical examination: VITAL SIGNS: 98.1, 50, 18, 152/78, 99% room air GENERAL: Average built, laying in bed, comfortable. EYES: Pupils equal. Conjunctiva normal. HEENT: External appearance of nose and ears normal, oral cavity grossly normal. NECK: JVD not raised; masses not palpable. HEART: First and second heart sounds are normal; no edema. LUNGS: Respiratory rate normal; clear to auscultation. ABDOMEN: Soft, nontender, liver spleen not palpable, no masses palpable. LYMPHATICS: No lymph nodes palpable in the axilla and neck. PSYCH: Alert and oriented x3; mood and affect normal. NEUROLOGICAL: Cranial nerves grossly intact; no facial asymmetry, power and sensation grossly intact. Investigations: White count 10.3, hemoglobin 40.4, potassium 4.6, BUN 25, creatinine 1.65 Computed tomography scan of the brain showing cerebral atrophy with chronic changes Carotid Doppler showing no critical stenosis Assessment: Acute dizziness, but no fever or chills no cerebellar signs, or symptoms, with ear symptoms. Most likely inner ear/middle ear pathology. Need to rule out a central cause. Follow with neurology is being consulted. 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 neurology was consulted. Patient did have a carotid Doppler to and a computed tomography scan of the brain. Care was discussed with the patient. Past Medical History Past Medical History: Chest Pain / Angina, COPD, Dementia, Hyperlipidemia, Hypertension, Myocardial Infarction ([place]), Renal Disease Additional Past Medical History / Comment(s): aneurysm, colon cancer Last Myocardial Infarction Date:: unknown History of Any Multi-Drug Resistant Organisms: None Reported Past Surgical History: Heart Catheterization With Stent Additional Past Surgical History / Comment(s): aneurysm repair to heart and abd Past Anesthesia/Blood Transfusion Reactions: No Reported Reaction Date of Last Stent Placement:: unknown Past Psychological History: Depression Smoking Status: Former smoker Past Alcohol Use History: None Reported Past Drug Use History: None Reported - Past Family History Father Additional Family Medical History / Comment(s): alcoholic Mother Additional Family Medical History / Comment(s): anerysm, of [place] Medications and Allergies Home Medications Medication Instructions Recorded Confirmed Type ALPRAZolam [Xanax] 0.5 mg PO BID PRN 01/21/17 09/26/18 History ARIPiprazole [Abilify] 2 mg PO HS 01/21/17 09/26/18 History Aspirin EC [Ecotrin Low Dose] 81 mg PO DAILY 01/21/17 09/26/18 History Atorvastatin [Lipitor] 40 mg PO DAILY 01/21/17 09/26/18 History Gbkfyoltrqhxrl-FM-Znmcmgkros 1 tab PO DAILY 01/21/17 09/26/18 History [Folbic] DULoxetine HCL [Cymbalta] 30 mg PO DAILY 01/21/17 09/26/18 History Digoxin [Lanoxin] 125 mcg PO DAILY 01/21/17 09/26/18 History Diphenox-Atrop 2.5-0.025 mg 2 tab PO TID PRN 01/21/17 09/26/18 History [Lomotil] Furosemide [Lasix] 40 mg PO DAILY 01/21/17 09/26/18 History Levothyroxine Sodium [Synthroid] 125 mcg PO DAILY 01/21/17 09/26/18 History Meclizine [Antivert] 25 mg PO TID 01/21/17 09/26/18 History Memantine [Namenda] 10 mg PO AC-BID 01/21/17 09/26/18 History Metoprolol Succinate (ER) [Toprol 12.5 mg PO BID 01/21/17 09/26/18 History XL] Mirtazapine [Remeron] 30 mg PO HS 01/21/17 09/26/18 History Nitroglycerin Sl Tabs [Nitrostat] 0.4 mg SUBLINGUAL Q5M PRN 01/21/17 09/26/18 History Allergies Allergy/AdvReac Type Severity Reaction Status Date / Time warfarin [From Coumadin] AdvReac Unknown Verified 09/26/18 14:00 Physical Exam Vitals: Vital Signs Temp Pulse Pulse Resp BP BP Pulse Ox 09/27/18 08:00 18 09/27/18 05:36 97.7 F 52 L 18 158/82 96 09/26/18 21:30 98.1 F 53 L 18 151/78 96 09/26/18 16:31 98.4 F 50 L 18 136/87 96 09/26/18 15:00 50 L 18 158/92 96 09/26/18 13:00 98.1 F 49 L 18 152/78 99 Intake and Output 09/26/18 09/27/18 09/27/18 22:59 06:59 14:59 Intake Total 500 400 Balance 500 400 Intake: Oral 500 400 Other: Voiding Method Toilet Urinal # Voids 1 2 # Bowel Movements 1 1 Results CBC & Chem 7: 09/26/18 13:50 09/26/18 13:50 Labs: Abnormal Lab Results - Last 24 Hours (Table) 09/26/18 09/26/18 Range/Units 13:50 13:50 Neutrophils # 8.2 H (1.3-7.7) k/uL Chloride 109 H (98-107) mmol/L BUN 25 H (9-20) mg/dL Creatinine 1.65 H (0.66-1.25) mg/dL Glucose 101 H (74-99) mg/dL Total Bilirubin 1.4 H (0.2-1.3) mg/dL Alkaline Phosphatase 139 H (38-126) U/L Thrombosis Risk Factor Assmnt - Choose All That Apply Any of the Below Risk Factors Present?: Yes Each Factor Represents 1 point: Abnormal pulmonary function (COPD), Obesity (BMI >25) Other Risk Factors: Yes Each Risk Factor Represents 3 Points: Age 75 years or older, History of DVT/PE Other congenital or acquired thrombophilia - If yes, enter type in comment: No Thrombosis Risk Factor Assessment Total Risk Factor Score: 8 Thrombosis Risk Factor Assessment Level: High Risk
--- NOTE | 2018-09-27 23:46 | DS ---
DISCHARGE SUMMARY DATE OF ADMISSION: 09/26/2018 DATE OF DISCHARGE: 09/27/2018. FINAL DIAGNOSIS: 1. 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 2. Chronic obstructive pulmonary disease in an ex-smoker. 3. 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 4. Hyperlipidemia. 5. Essential hypertension. 6. Coronary artery disease with prior history of stent. 7. Chronic kidney disease stage [address] Solis from neurology. HOSPITAL COURSE: This patient presented with 1 week of dizziness, more so positional with some dizziness and tended to be tendinitis. No other neurological symptoms were present. Carotid Doppler did not show any critical stenosis. CT scan of the brain shows some cerebral atrophy, atrophy. The patient's EKG shows a atrial paced rhythm. The patient is cleared by Neurology to follow up with the ENT as an outpatient. The patient is very keen to go home. PHYSICAL EXAMINATION: Temperature 98.3, pulse 83, respiratory rate 16, blood pressure 130/81. LUNGS: Clear. No focal neurological symptoms. DISCHARGE MEDICATIONS: 1. Xanax 0.5 p.o. b.i.d. p.r.n. 2. Abilify 2 mg p.o. q.h.s. 3. Aspirin 81 mg p.o. daily. 4. Lipitor 40 mg p.o. daily. 5. Folbic 1 tablet p.o. daily. 6. Cymbalta 30 mg p.o. daily. 7. Digoxin 125 mcg p.o. daily. 8. Lomotil 2 tablets p.o. t.i.d. p.r.n. 9. Lasix 40 mg p.o. daily. 10.Synthroid 125 mcg p.o. daily. 11.Antivert 25 mg p.o. t.i.d. 12.Namenda 10 mg p.o. b.i.d. 13.Toprol-XL 12.5 p.o. b.i.d. 14.Remeron 30 mg p.o. q.h.s. 15.Nitrostat 0.4 sublingual q.5 p.r.n. FOLLOW UP: Dr. Santana on October 06, 2018; follow up with Dr. Andre Jimenez in [place] in [address] Barbara Bliss. MMWADEL / IJN: [id number] /
== END 2018-09-27 17:58 | disposition home or self-care (01) ==
LOC: EC 12:58 → 4MS4W 16:19
PROVIDERS: ADMIT Hospitalist; ATTEND Hospitalist
DX: R42 Dizziness and giddiness (principal); J44.9 Chronic obstructive pulmonary disease, unspecified; E78.5 Hyperlipidemia, unspecified; I25.10 Atherosclerotic heart disease of native coronary artery without angina pectoris; Z95.5 Presence of coronary angioplasty implant and graft; I12.9 Hypertensive chronic kidney disease with stage 1 through stage 4 chronic kidney disease, or unspecified chronic kidney disease; F03.90 Unspecified dementia, unspecified severity, without behavioral disturbance, psychotic disturbance, mood disturbance, and anxiety; N18.3 Chronic kidney disease, stage 3 (moderate); Z87.891 Personal history of nicotine dependence; H91.93 Unspecified hearing loss, bilateral; H93.13 Tinnitus, bilateral; R11.0 Nausea; R53.1 Weakness; I25.2 Old myocardial infarction; F32.9 Major depressive disorder, single episode, unspecified; E66.9 Obesity, unspecified; Z68.27 Body mass index [BMI] 27.0-27.9, adult; Z85.038 Personal history of other malignant neoplasm of large intestine; Z86.718 Personal history of other venous thrombosis and embolism; Z79.82 Long term (current) use of aspirin; Z79.899 Other long term (current) drug therapy; Z79.890 Hormone replacement therapy; Z88.8 Allergy status to other drugs, medicaments and biological substances; Z81.1 Family history of alcohol abuse and dependence
CPT/HCPCS: 36415; 70450; 71046; 80053; 82607; 82746; 83735; 84443; 84484; 85025; 85610; 85730; 86780; 93005; 93880; 96361; 96374; 99285

== ENCOUNTER 2019-04-09 08:12 | Emergency (ER) | payer MEDICARE, OTHER ==
[2019-04-09] MEDS ORDERED: methylPREDNISolone SOD SUCCI 125 MG/2 ML VIAL IV STA (08:35)
[2019-04-09] MEDS ORDERED: IPRATROPIUM-ALBUTEROL 3 ML NEB INHALATION STA (08:35)
--- NOTE | 2019-04-09 08:39 | ED ---
General Adult HPI - General Chief complaint: Shortness of Breath Stated complaint: MANUEL Time Seen by Provider: 04/09/19 08:17 Source: patient, family, RN notes reviewed Mode of arrival: wheelchair Limitations: physical limitation - History of Present Illness Initial comments: Patient is a pleasant 89-year-old male presenting to the emergency department w ith difficulty in breathing. Onset of symptoms was 3 days ago. Patient does have history of previous symptoms associated with COPD. Patient normally uses her inhaler once or twice a day however has been using it 3 times a day. Patient does cough up yellow sputum. No chest pain. No fever. No leg pain or leg swelling. - Related Data Home Medications Medication Instructions Recorded Confirmed ALPRAZolam [Xanax] 0.5 mg PO BID PRN 01/21/17 04/09/19 ARIPiprazole [Abilify] 2 mg PO HS 01/21/17 04/09/19 Aspirin EC [Ecotrin Low Dose] 81 mg PO DAILY 01/21/17 04/09/19 Atorvastatin [Lipitor] 40 mg PO DAILY 01/21/17 04/09/19 Qveawamipcjori-UG-Aaprgbmqrn 1 tab PO DAILY 01/21/17 04/09/19 [Folbic] DULoxetine HCL [Cymbalta] 30 mg PO DAILY 01/21/17 04/09/19 Digoxin [Lanoxin] 125 mcg PO DAILY 01/21/17 04/09/19 Diphenox-Atrop 2.5-0.025 mg 2 tab PO TID PRN 01/21/17 04/09/19 [Lomotil] Furosemide [Lasix] 40 mg PO DAILY 01/21/17 04/09/19 Levothyroxine Sodium [Synthroid] 125 mcg PO DAILY 01/21/17 04/09/19 Meclizine [Antivert] 25 mg PO BID 01/21/17 04/09/19 Memantine [Namenda] 10 mg PO AC-BID 01/21/17 04/09/19 Metoprolol Succinate (ER) [Toprol 25 mg PO BID 01/21/17 04/09/19 XL] Mirtazapine [Remeron] 30 mg PO HS 01/21/17 04/09/19 Nitroglycerin Sl Tabs [Nitrostat] 0.4 mg SUBLINGUAL Q5M PRN 01/21/17 04/09/19 Albuterol Nebulized [Ventolin 2.5 mg INHALATION RT-Q4H PRN 04/09/19 04/09/19 Nebulized] Fluticasone Nasal [place] [Flonase 1 spr EA NOSTRIL DAILY 04/09/19 04/09/19 Nasal [place]] Ipratropium [place] [Ipratropium 2 sprays EA NOSTRIL TID 04/09/19 04/09/19 [place] 0.03%] Omeprazole 20 mg PO DAILY 04/09/19 04/09/19 Tamsulosin [Flomax] 0.4 mg PO DAILY 04/09/19 04/09/19 Previous Rx's Medication Instructions Recorded Azithromycin [Zithromax Z-pack] 250 mg PO DIRECTED #6 tab 04/09/19 predniSONE 20 mg PO BID #10 tab 04/09/19 Allergies Allergy/AdvReac Type Severity Reaction Status Date / Time warfarin [From Coumadin] AdvReac Unknown Verified 04/09/19 09:39 Review of Systems ROS Statement: Those systems with pertinent positive or pertinent negative responses have been documented in the HPI. ROS Other: All systems not noted in ROS Statement are negative. Constitutional: Denies: fever Eyes: Denies: eye pain ENT: Denies: ear pain Respiratory: Reports: cough, dyspnea Cardiovascular: Denies: chest pain Endocrine: Reports: fatigue Gastrointestinal: Denies: abdominal pain Genitourinary: Denies: dysuria Musculoskeletal: Denies: back pain Skin: Denies: rash Neurological: Denies: weakness Past Medical History Past Medical History: Chest Pain / Angina, COPD, Dementia, Hyperlipidemia, Hypertension, Myocardial Infarction ([place]), Renal Disease Additional Past Medical History / Comment(s): aneurysm, colon cancer Last Myocardial Infarction Date:: unknown History of Any Multi-Drug Resistant Organisms: None Reported Past Surgical History: Heart Catheterization With Stent Additional Past Surgical History / Comment(s): aneurysm repair to heart and abd Past Anesthesia/Blood Transfusion Reactions: No Reported Reaction Date of Last Stent Placement:: unknown Past Psychological History: Depression Smoking Status: Former smoker Past Alcohol Use History: None Reported Past Drug Use History: None Reported - Past Family History Father Additional Family Medical History / Comment(s): alcoholic Mother Additional Family Medical History / Comment(s): anerysm, of [place] General Exam Limitations: physical limitation General appearance: alert, in no apparent distress Head exam: Present: normocephalic Eye exam: Present: normal appearance Neck exam: Present: normal inspection Respiratory exam: Present: decreased breath sounds Cardiovascular Exam: Present: regular rate, normal rhythm GI/Abdominal exam: Present: soft. Absent: tenderness Extremities exam: Present: normal inspection. Absent: pedal edema, calf tenderness Neurological exam: Present: alert Psychiatric exam: Present: normal affect, normal mood Skin exam: Present: normal color Course Vital Signs 04/09/19 04/09/19 04/09/19 08:15 08:45 08:50 Temperature 97.6 F Pulse Rate 66 50 L 50 L Respiratory 22 16 Rate Blood Pressure 187/92 187/105 O2 Sat by Pulse 96 100 Oximetry 04/09/19 08:53 Temperature Pulse Rate 49 L Respiratory Rate Blood Pressure O2 Sat by Pulse Oximetry EKG Findings - EKG Comments: EKG Findings:: Paced rhythm with a rate of 50. IL 132. QRS 110. QT 408. QTC 371. Left axis. LVH with repolarization changes. Nonspecific T waves. Poor R-wave progression. Medical Decision Making - Medical Decision Making Patient reevaluated and resting comfortably in bed, symptom-free. Patient is requesting discharge home. Spouse present. Patient is able to ambulate to the emergency department without any difficulty. Pulse ox remains 96% on room air. Patient family updated on results and need for follow-up. - Lab Data Result diagrams: 04/09/19 08:36 04/09/19 08:36 Lab Results 04/09/19 04/09/19 04/09/19 Range/Units 08:36 08:36 08:36 WBC 11.2 H (3.8-10.6) k/uL RBC 4.51 (4.30-5.90) m/uL Hgb 13.5 (13.0-17.5) gm/dL Hct 41.0 (39.0-53.0) % MCV 91.0 (80.0-100.0) fL MCH 30.0 (25.0-35.0) pg MCHC 33.0 (31.0-37.0) g/dL RDW 15.5 (11.5-15.5) % Plt Count 168 (150-450) k/uL Neutrophils % 80 % Lymphocytes % 10 % Monocytes % 6 % Eosinophils % 2 % Basophils % 1 % Neutrophils # 9.0 H (1.3-7.7) k/uL Lymphocytes # 1.1 (1.0-4.8) k/uL Monocytes # 0.6 (0-1.0) k/uL Eosinophils # 0.3 (0-0.7) k/uL Basophils # 0.1 (0-0.2) k/uL PT (9.0-12.0) sec INR (<1.2) APTT (22.0-30.0) sec D-Dimer (<0.60) mg/L FEU Sodium 141 (137-145) mmol/L Potassium 4.4 (3.5-5.1) mmol/L Chloride 105 (98-107) mmol/L Carbon Dioxide 29 (22-30) mmol/L Anion Gap 7 mmol/L BUN 33 H (9-20) mg/dL Creatinine 1.51 H (0.66-1.25) mg/dL Est GFR (CKD-EPI)AfAm 47 (>60 ml/min/1.73 sqM) Est GFR (CKD-EPI)NonAf 41 (>60 ml/min/1.73 sqM) Glucose 102 H (74-99) mg/dL Calcium 9.8 (8.4-10.2) mg/dL Total Bilirubin 1.5 H (0.2-1.3) mg/dL AST 38 (17-59) U/L ALT 37 (4-49) U/L Alkaline Phosphatase 101 (38-126) U/L Creatine Kinase 83 (55-170) U/L Troponin I (0.000-0.034) ng/mL NT-Pro-B Natriuret Pep 1740 pg/mL Total Protein 7.1 (6.3-8.2) g/dL Albumin 4.2 (3.5-5.0) g/dL Digoxin 0.8 ng/mL 04/09/19 04/09/19 Range/Units 08:36 08:36 WBC (3.8-10.6) k/uL RBC (4.30-5.90) m/uL Hgb (13.0-17.5) gm/dL Hct (39.0-53.0) % MCV (80.0-100.0) fL MCH (25.0-35.0) pg MCHC (31.0-37.0) g/dL RDW (11.5-15.5) % Plt Count (150-450) k/uL Neutrophils % % Lymphocytes % % Monocytes % % Eosinophils % % Basophils % % Neutrophils # (1.3-7.7) k/uL Lymphocytes # (1.0-4.8) k/uL Monocytes # (0-1.0) k/uL Eosinophils # (0-0.7) k/uL Basophils # (0-0.2) k/uL PT 10.7 (9.0-12.0) sec INR 1.0 (<1.2) APTT 23.3 (22.0-30.0) sec D-Dimer 18.27 H (<0.60) mg/L FEU Sodium (137-145) mmol/L Potassium (3.5-5.1) mmol/L Chloride (98-107) mmol/L Carbon Dioxide (22-30) mmol/L Anion Gap mmol/L BUN (9-20) mg/dL Creatinine (0.66-1.25) mg/dL Est GFR (CKD-EPI)AfAm (>60 ml/min/1.73 sqM) Est GFR (CKD-EPI)NonAf (>60 ml/min/1.73 sqM) Glucose (74-99) mg/dL Calcium (8.4-10.2) mg/dL Total Bilirubin (0.2-1.3) mg/dL AST (17-59) U/L ALT (4-49) U/L Alkaline Phosphatase (38-126) U/L Creatine Kinase (55-170) U/L Troponin I 0.025 (0.000-0.034) ng/mL NT-Pro-B Natriuret Pep pg/mL Total Protein (6.3-8.2) g/dL Albumin (3.5-5.0) g/dL Digoxin ng/mL - Radiology Data Radiology results: report reviewed (CT angiogram of the chest shows no PE, sonographic, emphysematous change, diffuse groundglass opacity), image reviewed (Chest x-ray shows stent graft in the thoracic aorta. Mild cardiomegaly. Corre late for COPD.) Disposition Clinical Impression: Acute exacerbation of chronic obstructive pulmonary disease Disposition: HOME SELF-CARE Condition: Stable Instructions (If sedation given, give patient instructions): COPD (Chronic Obstructive Pulmonary Disease) (ED) Additional Instructions: Please follow-up with primary care physician in the beginning week for recheck. Return for difficulty in breathing, fevers, worsening symptoms or other concerns. Prescriptions have been sent to [facility] in [facility]. Prescriptions: predniSONE 20 mg PO BID #10 tab Azithromycin [Zithromax Z-pack] 250 mg PO DIRECTED #6 tab Is patient prescribed a controlled substance at d/c from ED?: No Referrals: Harvinder Jimenez MD [Primary Care Provider] - 1-2 days Time of Disposition: 10:44
[2019-04-09 08:53] LABS: Basophils # (A) 0.1 k/uL (0-0.2); Basophils % (A) 1 %; Eosinophils # (A) 0.3 k/uL (0-0.7); Eosinophils % (A) 2 %; HGB 13.5 gm/dL (13.0-17.5); Lymphocytes # (A) 1.1 k/uL (1.0-4.8); Lymphocytes % (A) 10 %; Mean Platelet Volume 7.9; Monocytes # (A) 0.6 k/uL (0-1.0); Monocytes % (A) 6 %; Neutrophils % (A) 80 %; Platelet Count 168 k/uL (150-450); RBC 4.51 m/uL (4.30-5.90); RDW 15.5 % (11.5-15.5); WBC 11.2 k/uL (3.8-10.6)
[2019-04-09 09:07] VITALS: RESP 16
[2019-04-09 09:15] LABS: Partial Thromboplastin Time 23.3 sec (22.0-30.0); Prothrombin Time 10.7 sec (9.0-12.0)
--- NOTE | 2019-04-09 09:16 | XR ---
EXAMINATION TYPE: XR chest 2V DATE OF EXAM: 04/09/2019 HISTORY: difficulty breathing. REFERENCE: Previous study dated 09/26/2018. FINDINGS: There has been a previous stent grafting of the patient's thoracic aortic aneurysm. There h as been a previous ACDF of the lower cervical spine line. There is a bipolar pacemaker place on the l eft. Lung volumes are prominent. The heart is mildly enlarged. The lungs are clear. IMPRESSION: 1. MILD CARDIOMEGALY. 2. NO THORACIC AORTIC ANEURYSM. 3. CORRELATE FOR COPD.
[2019-04-09 09:17] LABS: Albumin 4.2 g/dL (3.5-5.0); Calcium 9.8 mg/dL (8.4-10.2); Potassium 4.4 mmol/L (3.5-5.1); Total Bilirubin 1.5 mg/dL (0.2-1.3); Total Protein 7.1 g/dL (6.3-8.2)
[2019-04-09 09:26] LABS: D-Dimer 18.27 mg/L FEU (<0.60)
[2019-04-09] MEDS ORDERED: SODIUM CHLORIDE 0.9% 500 ML 500 ML IV STA (09:26)
[2019-04-09 09:29] LABS: Digoxin 0.8 ng/mL
--- NOTE | 2019-04-09 10:18 | CT ---
EXAMINATION TYPE: CT angio chest DATE OF EXAM: 04/09/2019 10:01 AM COMPARISON: HISTORY: SOB, elevated d dimer CT DLP: 489.6 mGycm Automated exposure control for dose reduction was used. CONTRAST: CTA scan of the thorax is performed with IV Contrast, patient injected with 65 mL of Isovue 370, pulm onary embolism protocol. . FINDINGS: There are bullous changes throughout both lungs. There is groundglass opacity throughout th e remainder the lungs which may represent ongoing alveolitis, pneumonitis or pulmonary edema. There h as been stent graft in the patient's aortic aneurysm. The aortic root measures 4.6 cm. The heart is e nlarged. There is no pleural or pericardial fluid. There is no evidence of pulmonary embolus. Visualized portions of the upper abdomen are unremarkable. There is hypertrophic spondylosis throughout the spine. IMPRESSION: 1. THIS EXAMINATION IS NEGATIVE FOR PULMONARY EMBOLUS. 2. STENT GRAFT IN THE PATIENT'S KNOWN AORTIC ANEURYSM. 3. CARDIOMEGALY. 4. EMPHYSEMATOUS CHANGE. 5. DIFFUSE GROUNDGLASS OPACITY MAY REPRESENT ONGOING ALVEOLITIS, PNEUMONITIS OR CONGESTIVE HEART FAIL URE. PLEASE CORRELATE CLINICALLY. NOTE IS MADE OF SEVERE DEGENERATIVE CHANGE OF BOTH SHOULDERS.
[2019-04-09] MEDS ORDERED: FUROSEMIDE 40 MG TAB PO STA (10:41)
[2019-04-09] MEDS ORDERED: METOPROLOL SUCCINATE (ER) 25 MG TAB.ER.24H PO STA (10:41)
[2019-04-09 10:45] VITALS: BP 175/103; PULSE 63; TEMP 98.1
== END 2019-04-09 11:02 | disposition home or self-care (01) ==
LOC: EC 08:12
DX: J44.1 Chronic obstructive pulmonary disease with (acute) exacerbation (principal); I20.9 Angina pectoris, unspecified; F03.90 Unspecified dementia, unspecified severity, without behavioral disturbance, psychotic disturbance, mood disturbance, and anxiety; E78.5 Hyperlipidemia, unspecified; I10 Essential (primary) hypertension; I25.2 Old myocardial infarction; F32.9 Major depressive disorder, single episode, unspecified; Z87.891 Personal history of nicotine dependence; Z88.8 Allergy status to other drugs, medicaments and biological substances; Z79.51 Long term (current) use of inhaled steroids; Z79.82 Long term (current) use of aspirin; Z79.890 Hormone replacement therapy; Z79.899 Other long term (current) drug therapy; Z85.038 Personal history of other malignant neoplasm of large intestine; Z98.890 Other specified postprocedural states
CPT/HCPCS: 36415; 94640; 93005; 85379; 83880; 80053; 82550; 80162; 84484; 85025; 85610; 85730; 71046; 71275; 99285; 96374; 96361; J2930; Q9967

== ENCOUNTER 2019-09-29 19:26 | Emergency (ER) | payer MEDICARE, OTHER ==
[2019-09-29 19:37] VITALS: BP 177/83; PULSE 60; RESP 18; TEMP 98.3
[2019-09-29] MEDS ORDERED: HYDROcodone/APAP 7.5-325MG 1 EACH TAB PO ONE (20:07)
--- NOTE | 2019-09-29 20:43 | XR ---
PROCEDURE: XR shoulder complete LT - 4V DATE AND TIME: 09/29/2019 8:36 PM CLINICAL INDICATION: pain to palpation after fall TECHNIQUE: Department protocol COMPARISON: None FINDINGS: There is no fracture or malalignment. 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 The acromioclavicular joint is congruent. Cardiac pacemaker and thoracic aortic stent noted. IMPRESSION: Negative for fracture/malalignment.
--- NOTE | 2019-09-29 20:46 | XR ---
PROCEDURE: XR elbow complete LT - 4V DATE AND TIME: 09/29/2019 8:36 PM CLINICAL INDICATION: PHH; fall obvious hematoma TECHNIQUE: Department protocol COMPARISON: None FINDINGS: There is a soft tissue mass laterally, likely hematoma. There is also soft tissue swelling posteriorly. No acute bone or soft tissue findings. Moderate osteoarthritis changes are appreciated. IMPRESSION: Negative for fracture/malalignment.
--- NOTE | 2019-09-29 20:55 | ED ---
Upper Extremity HPI - General Chief Complaint: Extremity Injury, Upper Stated Complaint: Fall, elbow injury Time Seen by Provider: 09/29/19 19:50 Source: patient, family Mode of arrival: ambulatory Limitations: no limitations - History of Present Illness Initial Comments: 89-year-old female presenting today for chief complaint of right elbow pain. Patient states he tripped over a cord falling striking his right elbow. Patient states is mild pain in the shoulder and the elbow to fully range the elbow has no numbness tingling loss of sensation. Patient states he caught himself and did not sustain a head or neck injury. Denies any use of anticoagulation therapy states he only takes daily aspirin. Patient denies any headache nausea vomiting visual changes he denies any injury to the lower extremities back abdomen or chest. Immediately system negative upon arrival patient appears well signs of acute distress. Noted superficial skin tear to the left forearm, states tdap is UTD - Related Data Home Medications Medication Instructions Recorded Confirmed ALPRAZolam [Xanax] 0.5 mg PO BID PRN 01/21/17 04/09/19 ARIPiprazole [Abilify] 2 mg PO HS 01/21/17 04/09/19 Aspirin EC [Ecotrin Low Dose] 81 mg PO DAILY 01/21/17 04/09/19 Atorvastatin [Lipitor] 40 mg PO DAILY 01/21/17 04/09/19 [id number]-[id number] 1 tab PO DAILY 01/21/17 04/09/19 [Folbic] DULoxetine HCL [Cymbalta] 30 mg PO DAILY 01/21/17 04/09/19 Digoxin [Lanoxin] 125 mcg PO DAILY 01/21/17 04/09/19 Diphenox-Atrop 2.5-0.025 mg 2 tab PO TID PRN 01/21/17 04/09/19 [Lomotil] Furosemide [Lasix] 40 mg PO DAILY 01/21/17 04/09/19 Levothyroxine Sodium [Synthroid] 125 mcg PO DAILY 01/21/17 04/09/19 Meclizine [Antivert] 25 mg PO BID 01/21/17 04/09/19 Memantine [Namenda] 10 mg PO AC-BID 01/21/17 04/09/19 Metoprolol Succinate (ER) [Toprol 25 mg PO BID 01/21/17 04/09/19 XL] Mirtazapine [Remeron] 30 mg PO HS 01/21/17 04/09/19 Nitroglycerin Sl Tabs [Nitrostat] 0.4 mg SUBLINGUAL Q5M PRN 01/21/17 04/09/19 Albuterol Nebulized [Ventolin 2.5 mg INHALATION RT-Q4H PRN 04/09/19 04/09/19 Nebulized] Fluticasone Nasal [place] [Flonase 1 spr EA NOSTRIL DAILY 04/09/19 04/09/19 Nasal [place]] Ipratropium [place] [Ipratropium 2 sprays EA NOSTRIL TID 04/09/19 04/09/19 [place] 0.03%] Omeprazole 20 mg PO DAILY 04/09/19 04/09/19 Tamsulosin [Flomax] 0.4 mg PO DAILY 04/09/19 04/09/19 Previous Rx's Medication Instructions Recorded Azithromycin [Zithromax Z-pack] 250 mg PO DIRECTED #6 tab 04/09/19 predniSONE [Deltasone] 20 mg PO BID #10 tab 04/09/19 Allergies Allergy/AdvReac Type Severity Reaction Status Date / Time warfarin [From Coumadin] AdvReac Unknown Verified 09/29/19 19:37 Review of Systems ROS Statement: Those systems with pertinent positive or pertinent negative responses have been documented in the HPI. ROS Other: All systems not noted in ROS Statement are negative. Past Medical History Past Medical History: Chest Pain / Angina, COPD, Dementia, Hyperlipidemia, Hypertension, Myocardial Infarction ([place]), Renal Disease Additional Past Medical History / Comment(s): aneurysm, colon cancer Last Myocardial Infarction Date:: unknown History of Any Multi-Drug Resistant Organisms: None Reported Past Surgical History: Heart Catheterization With Stent Additional Past Surgical History / Comment(s): aneurysm repair to heart and abd Past Anesthesia/Blood Transfusion Reactions: No Reported Reaction Date of Last Stent Placement:: unknown Past Psychological History: Depression Smoking Status: Former smoker Past Alcohol Use History: None Reported Past Drug Use History: None Reported - Past Family History Father Additional Family Medical History / Comment(s): alcoholic Mother Additional Family Medical History / Comment(s): anerysm, of [place] General Exam - General Exam Comments Initial Comments: General: The patient is awake and alert, in no distress, and does not appear acutely ill. Eye: Pupils are equal, round and reactive to light, extra-ocular movements are intact. No nystagmus. There is normal conjunctiva bilaterally. No signs of ic terus. Cardiovascular: There is a regular rate and rhythm. No murmur, rub or gallop is appreciated. Respiratory: Lungs are clear to auscultation, respirations are non-labored, breath sounds are equal. No wheezes, stridor, rales, or rhonchi. Gastrointestinal: Soft, non-distended, non-tender abdomen without masses or or ganomegaly noted. There is no rebound or guarding present. Musculoskeletal: Normal ROM, with tenderness of the left shoulder and elbow, no pain in wrist or hand or UE b/l, no right shoulder or elbow pain. No deformity of shoulder, there is a large hematoma with skin tear noted over the proximal aspect of forearm. Strength 5/5. Sensation intact proximal and distal to injury site. Radial pulses equal bilaterally 2+. Neurological: A&O x 3. CN II-XII intact grossly, There are no obvious motor or sensory deficits. Coordination appears grossly intact. Speech is normal. Skin: Skin is warm and dry and no rashes or lesions are noted. Psychiatric: Cooperative, appropriate mood & affect, normal judgment. Limitations: no limitations Course Vital Signs 09/29/19 19:30 Temperature 98.3 F Pulse Rate 60 Respiratory 18 Rate Blood Pressure 177/83 O2 Sat by Pulse 98 Oximetry Medical Decision Making - Medical Decision Making 89yo male presenting for cc of fall, elbow injury. Patient is neurovascularly intact. There is a hematoma that does not appear to be expanding. Superficial skin tear that does not require repair. Cleansed and bandaged. Some mild shoulder pain x-rays negative for osseous injury. Patient's compartments are soft and compressible. Recommended sling for comfort, pressure and application of ice. Begin using heat on area gently in 48 hours to assist with resorption of hematoma blood products. Discussed importance of f/u and return if hemtoma begins to expand, pain increases. Patient discharged appearing well case discu ssed in detail [facility] Dr. Velasco who is agreeable to care plan and discharge. Disposition Clinical Impression: Left elbow pain, Traumatic hematoma of elbow, Fall Disposition: HOME SELF-CARE Condition: Good Instructions (If sedation given, give patient instructions): Hematoma (ED) Additional Instructions: Please use medication as discussed. Please follow-up with family doctor in the next 2 days. Please return to emergency room if the symptoms increase or worsen or for any other concerns. Is patient prescribed a controlled substance at d/c from ED?: No Referrals: Harvinder Jimenez MD [Primary Care Provider] - 1-2 days Time of Disposition: 20:54
== END 2019-09-29 21:17 | disposition home or self-care (01) ==
LOC: EC 19:26
DX: S50.02XA Contusion of left elbow, initial encounter (principal); S51.812A Laceration without foreign body of left forearm, initial encounter; J44.9 Chronic obstructive pulmonary disease, unspecified; E78.5 Hyperlipidemia, unspecified; I10 Essential (primary) hypertension; I25.2 Old myocardial infarction; F32.9 Major depressive disorder, single episode, unspecified; F03.90 Unspecified dementia, unspecified severity, without behavioral disturbance, psychotic disturbance, mood disturbance, and anxiety; Z79.82 Long term (current) use of aspirin; Z79.51 Long term (current) use of inhaled steroids; Z79.899 Other long term (current) drug therapy; Z87.891 Personal history of nicotine dependence; Z88.8 Allergy status to other drugs, medicaments and biological substances; Z85.038 Personal history of other malignant neoplasm of large intestine; Z95.5 Presence of coronary angioplasty implant and graft; W01.198A Fall on same level from slipping, tripping and stumbling with subsequent striking against other object, initial encounter
CPT/HCPCS: 99283

== ENCOUNTER → 2019-10-05 | Outpatient (CLI) | payer MEDICARE, OTHER ==
--- NOTE | 2019-10-05 16:04 | US ---
EXAMINATION TYPE: US venous doppler duplex UE LT DATE OF EXAM: 10/05/2019 COMPARISON: NONE CLINICAL HISTORY: 89-year-old male R22.30 swelling of upper limb. TECHNIQUE: Grayscale, color doppler, spectral doppler imaging performed of the deep veins of the upp er extremities SIDE PERFORMED: left FINDINGS: There is normal flow, compressibility and vascular waveforms. Left Arm: Negative for DVT IMPRESSION: No evidence for DVT within the left upper extremity.
== END | disposition home or self-care (01) ==
LOC: RADUSWWP 15:15
PROVIDERS: ATTEND Nurse Practitioner Family
DX: R22.32 Localized swelling, mass and lump, left upper limb (principal)

== ENCOUNTER 2019-10-22 08:41 | Inpatient (IN) | payer MEDICARE, OTHER ==
[2019-10-22 09:13] LABS: Glucose,Whole Blood 103 mg/dL (75-99)
[2019-10-22] MEDS ORDERED: SODIUM CHLORIDE 0.9% 500 ML 500 ML IV STA (09:16)
[2019-10-22] MEDS ORDERED: DIAZEPAM 5 MG/ML 2 ML INJ IVP STA (09:17)
[2019-10-22] MEDS ORDERED: ONDANSETRON 4 MG/2 ML VIAL IVP STA (09:17)
--- NOTE | 2019-10-22 09:20 | ED ---
General Adult HPI - General Chief complaint: Dizziness Stated complaint: dizziness/ear pain Time Seen by Provider: 10/22/19 08:50 Source: patient, RN notes reviewed, old records reviewed Mode of arrival: ambulatory Limitations: no limitations - History of Present Illness Initial comments: This is an 89-year-old male who presents emergency department with past medical history significant for vertigo. Patient states she's been dizzy over the last week and it was getting better but today he woke up and was considerably worse. Patient states he took Antivert about 8:00 this morning and it did not improve his symptoms so decided come to the emergency department. Patient denies any headache patient denies numbness weakness. Patient denies any new deafness or ringing in ears. Patient states he symptoms are typical of his vertigo. Patient states with movement it's worse if he sits still it's much better. Patient denies any chest pain or palpitations. Patient denies any difficulty breathing. Patient denies any recent fever chills or cough. Patient denies any abdominal pain. Patient states she's nauseated but has yet to vomit. - Related Data Home Medications Medication Instructions Recorded Confirmed ALPRAZolam [Xanax] 0.5 mg PO BID PRN 01/21/17 10/22/19 ARIPiprazole [Abilify] 2 mg PO HS 01/21/17 10/22/19 Aspirin EC [Ecotrin Low Dose] 81 mg PO DAILY 01/21/17 10/22/19 Atorvastatin [Lipitor] 40 mg PO DAILY 01/21/17 10/22/19 DULoxetine HCL [Cymbalta] 30 mg PO DAILY 01/21/17 10/22/19 Digoxin [Lanoxin] 125 mcg PO DAILY 01/21/17 10/22/19 Diphenox-Atrop 2.5-0.025 mg 2 tab PO TID PRN 01/21/17 10/22/19 [Lomotil] Furosemide [Lasix] 40 mg PO DAILY 01/21/17 10/22/19 Levothyroxine Sodium [Synthroid] 125 mcg PO DAILY 01/21/17 10/22/19 Meclizine [Antivert] 25 mg PO TID 01/21/17 10/22/19 Memantine [Namenda] 10 mg PO AC-BID 01/21/17 10/22/19 Metoprolol Succinate (ER) [Toprol 25 mg PO BID 01/21/17 10/22/19 XL] Mirtazapine [Remeron] 30 mg PO HS 01/21/17 10/22/19 Nitroglycerin Sl Tabs [Nitrostat] 0.4 mg SUBLINGUAL Q5M PRN 01/21/17 10/22/19 Fluticasone Nasal [place] [Flonase 1 spr EA NOSTRIL DAILY 04/09/19 10/22/19 Nasal [place]] Omeprazole 20 mg PO DAILY 04/09/19 10/22/19 Tamsulosin [Flomax] 0.4 mg PO DAILY 04/09/19 10/22/19 Allergies Allergy/AdvReac Type Severity Reaction Status Date / Time warfarin [From Coumadin] AdvReac Unknown Verified 10/22/19 10:19 Review of Systems ROS Statement: Those systems with pertinent positive or pertinent negative responses have been documented in the HPI. ROS Other: All systems not noted in ROS Statement are negative. Past Medical History Past Medical History: Chest Pain / Angina, COPD, Dementia, Hyperlipidemia, Hypertension, Myocardial Infarction ([place]), Renal Disease Additional Past Medical History / Comment(s): aneurysm, colon cancer Last Myocardial Infarction Date:: unknown History of Any Multi-Drug Resistant Organisms: None Reported Past Surgical History: Heart Catheterization With Stent Additional Past Surgical History / Comment(s): aneurysm repair to heart and abd Past Anesthesia/Blood Transfusion Reactions: No Reported Reaction Date of Last Stent Placement:: unknown Past Psychological History: Depression Smoking Status: Former smoker Past Alcohol Use History: None Reported Past Drug Use History: None Reported - Past Family History Father Additional Family Medical History / Comment(s): alcoholic Mother Additional Family Medical History / Comment(s): anerysm, of [place] General Exam - General Exam Comments Initial Comments: GENERAL: Patient is well-developed and well-nourished. Patient is nontoxic and well- hydrated and is in mild distress. ENT: Neck is soft and supple. No significant lymphadenopathy is noted. Oropharynx is clear. Moist mucous membranes. Neck has full range of motion without eliciting any pain. EYES: The sclera were anicteric and conjunctiva were pink and moist. Extraocular movements were intact and pupils were equal round and reactive to light. Eyelids were unremarkable. PULMONARY: Unlabored respirations. Good breath sounds bilaterally. No audible rales rhonchi or wheezing was noted. CARDIOVASCULAR: There is a regular rate and rhythm without any murmurs gallops or rubs. ABDOMEN: Soft and nontender with normal bowel sounds. SKIN: Skin is clear with no lesions or rashes and otherwise unremarkable. NEUROLOGIC: Patient is alert and oriented x3. Cranial nerves II through XII are grossly intact. Motor and sensory are also intact. Normal speech, volume and content. Symmetrical smile. Cerebellar exam [id number] is grossly intact. MUSCULOSKELETAL: Normal extremities with adequate strength and full range of motion. No lower extremity swelling or edema. No calf tenderness. LYMPHATICS: No significant lymphadenopathy is noted PSYCHIATRIC: Normal psychiatric evaluation. Limitations: no limitations Course Vital Signs 10/22/19 08:49 Temperature 98.2 F Pulse Rate 53 L Respiratory 18 Rate Blood Pressure 149/103 O2 Sat by Pulse 95 Oximetry Medical Decision Making - Medical Decision Making EKG shows a paced rhythm at 55 bpm MS interval 264 QRS is 114 QT interval 364 QTC is 348. Chest x-ray shows a right lower lobe pneumonia. I gave the patient Rocephin. - Lab Data Result diagrams: 10/22/19 09:23 10/22/19 09:23 Lab Results 10/22/19 10/22/19 10/22/19 Range/Units 09:11 09:23 09:23 WBC 8.2 (3.8-10.6) k/uL RBC 4.22 L (4.30-5.90) m/uL Hgb 11.8 L (13.0-17.5) gm/dL Hct 37.0 L (39.0-53.0) % MCV 87.7 (80.0-100.0) fL MCH 28.1 (25.0-35.0) pg MCHC 32.0 (31.0-37.0) g/dL RDW 15.8 H (11.5-15.5) % Plt Count 212 (150-450) k/uL Neutrophils % 80 % Lymphocytes % 10 % Monocytes % 5 % Eosinophils % 4 % Basophils % 1 % Neutrophils # 6.6 (1.3-7.7) k/uL Lymphocytes # 0.8 L (1.0-4.8) k/uL Monocytes # 0.4 (0-1.0) k/uL Eosinophils # 0.3 (0-0.7) k/uL Basophils # 0.1 (0-0.2) k/uL PT 10.4 (9.0-12.0) sec INR 1.0 (<1.2) APTT 23.7 (22.0-30.0) sec Sodium (137-145) mmol/L Potassium (3.5-5.1) mmol/L Chloride (98-107) mmol/L Carbon Dioxide (22-30) mmol/L Anion Gap mmol/L BUN (9-20) mg/dL Creatinine (0.66-1.25) mg/dL Est GFR (CKD-EPI)AfAm (>60 ml/min/1.73 sqM) Est GFR (CKD-EPI)NonAf (>60 ml/min/1.73 sqM) Glucose (74-99) mg/dL POC Glucose (mg/dL) 103 H (75-99) mg/dL POC Glu [employer] Deion Anthony Calcium (8.4-10.2) mg/dL Magnesium (1.6-2.3) mg/dL Total Bilirubin (0.2-1.3) mg/dL AST (17-59) U/L ALT (4-49) U/L Alkaline Phosphatase (38-126) U/L Troponin I (0.000-0.034) ng/mL Total Protein (6.3-8.2) g/dL Albumin (3.5-5.0) g/dL 10/22/19 10/22/19 Range/Units 09:23 09:23 WBC (3.8-10.6) k/uL RBC (4.30-5.90) m/uL Hgb (13.0-17.5) gm/dL Hct (39.0-53.0) % MCV (80.0-100.0) fL MCH (25.0-35.0) pg MCHC (31.0-37.0) g/dL RDW (11.5-15.5) % Plt Count (150-450) k/uL Neutrophils % % Lymphocytes % % Monocytes % % Eosinophils % % Basophils % % Neutrophils # (1.3-7.7) k/uL Lymphocytes # (1.0-4.8) k/uL Monocytes # (0-1.0) k/uL Eosinophils # (0-0.7) k/uL Basophils # (0-0.2) k/uL PT (9.0-12.0) sec INR (<1.2) APTT (22.0-30.0) sec Sodium 143 (137-145) mmol/L Potassium 4.0 (3.5-5.1) mmol/L Chloride 107 (98-107) mmol/L Carbon Dioxide 28 (22-30) mmol/L Anion Gap 8 mmol/L BUN 17 (9-20) mg/dL Creatinine 1.39 H (0.66-1.25) mg/dL Est GFR (CKD-EPI)AfAm 52 (>60 ml/min/1.73 sqM) Est GFR (CKD-EPI)NonAf 45 (>60 ml/min/1.73 sqM) Glucose 101 H (74-99) mg/dL POC Glucose (mg/dL) (75-99) mg/dL POC Glu [employer] Technologist ID Calcium 9.4 (8.4-10.2) mg/dL Magnesium 1.9 (1.6-2.3) mg/dL Total Bilirubin 1.2 (0.2-1.3) mg/dL AST 30 (17-59) U/L ALT 21 (4-49) U/L Alkaline Phosphatase 109 (38-126) U/L Troponin I 0.019 (0.000-0.034) ng/mL Total Protein 6.0 L (6.3-8.2) g/dL Albumin 3.6 (3.5-5.0) g/dL Disposition Clinical Impression: Vertigo, Pneumonia Disposition: ADMITTED IP TO THIS HOSP Referrals: Harvinder Jimenez MD [Primary Care Provider] - 1-2 days Time of Disposition: 10:57
[2019-10-22 09:31] LABS: Basophils # (A) 0.1 k/uL (0-0.2); Basophils % (A) 1 %; Eosinophils # (A) 0.3 k/uL (0-0.7); Eosinophils % (A) 4 %; HGB 11.8 gm/dL (13.0-17.5); Lymphocytes # (A) 0.8 k/uL (1.0-4.8); Lymphocytes % (A) 10 %; MCH 28.1 pg (25.0-35.0); MCV 87.7 fL (80.0-100.0); Mean Platelet Volume 7.7; Monocytes # (A) 0.4 k/uL (0-1.0); Monocytes % (A) 5 %; Neutrophils # (A) 6.6 k/uL (1.3-7.7); Neutrophils % (A) 80 %; Platelet Count 212 k/uL (150-450); RBC 4.22 m/uL (4.30-5.90); RDW 15.8 % (11.5-15.5); WBC 8.2 k/uL (3.8-10.6)
[2019-10-22 09:39] LABS: Partial Thromboplastin Time 23.7 sec (22.0-30.0); Prothrombin Time 10.4 sec (9.0-12.0)
[2019-10-22 09:43] LABS: Albumin 3.6 g/dL (3.5-5.0); Calcium 9.4 mg/dL (8.4-10.2); Magnesium 1.9 mg/dL (1.6-2.3); Total Bilirubin 1.2 mg/dL (0.2-1.3)
--- NOTE | 2019-10-22 10:12 | CT ---
EXAMINATION TYPE: CT brain wo con DATE OF EXAM: 10/22/2019 COMPARISON: 09/26/2018 INDICATION: Dizziness and nausea. DLP: 1141.4 mGycm, Automated exposure control for dose reduction was used. CONTRAST: None CT of the brain is performed utilizing 3 mm thick sections through the posterior fossa and 3 mm thick sections through the remaining calvarium. Study is performed within 24 hours of arrival to the hosp ital. No abnormal hyperdensity is present to suggest an acute intracranial hemorrhage. No mass lesion is evident. No acute infarcts are evident. Periventricular white matter hypodensity is present, compatible with c hronic appearing white matter ischemic changes. Ventricles and sulci are are currently prominent for the patient age. Paranasal sinuses and mastoid air cells within the [id number] are clear. IMPRESSIONS: 1. Atrophy with periventricular white matter ischemic changes.
--- NOTE | 2019-10-22 10:21 | XR ---
EXAMINATION TYPE: XR chest 2V DATE OF EXAM: 10/22/2019 COMPARISON: 04/09/2019 INDICATION: Chest pain TECHNIQUE: Frontal and lateral views of the chest are obtained. FINDINGS: The heart size is mildly prominent. The pulmonary vasculature is normal. All right lower lobe infiltrate may be present. Correlate for atelectasis. Pacemaker overlies left ch est. Prior aortic stenting is evident. No significant interval changes evident. IMPRESSION: 1. Mild right lower lobe infiltrate. Correlate for atelectasis or early pneumonia.
[2019-10-22] MEDS ORDERED: cefTRIAXone IN SWFI 1,000 MG/10 ML SYRINGE IVP STA (10:33)
[2019-10-22] MEDS ORDERED: PNEUMONIA PROTOCOL UTILIZED 1 EACH MISC PO PRN (10:58)
[2019-10-22] MEDS ORDERED: AZITHROMYCIN 500 MG in SODIUM CHLORIDE 0.9% 250 ML IVPB STA (10:58)
[2019-10-22] MEDS ORDERED: NITROGLYCERIN SL TABS 0.4 MG TAB SUBLINGUAL PRN (12:40)
[2019-10-22] MEDS ORDERED: DIPHENOX-ATROP 2.5-0.025 MG 1 EACH TAB PO PRN (12:40)
[2019-10-22] MEDS ORDERED: ALPRAZolam 0.5 MG TAB PO PRN (12:40)
[2019-10-22] MEDS: MECLIZINE 25 MG TAB PO SCH ×2 (17:38→21:15)
[2019-10-22] MEDS: MEMANTINE 10 MG TAB PO SCH (17:38)
[2019-10-22] MEDS ORDERED: NALOXONE 0.4 MG/ML 1 ML VIAL IV PRN (18:02)
[2019-10-22] MEDS ORDERED: MAG HYDROX/AL HYDROX/SIMETH 30 ML CUP PO PRN (18:02)
[2019-10-22] MEDS ORDERED: MELATONIN 3 MG TABLET PO PRN (18:02)
[2019-10-22] MEDS ORDERED: CALCIUM CARBONATE 500 MG CHEWABLE PO PRN (18:02)
[2019-10-22] MEDS ORDERED: MAGNESIUM HYDROXIDE 2,400 MG/10 ML CUP PO PRN (18:02)
[2019-10-22] MEDS ORDERED: LACTULOSE 20 GM/30 ML CUP PO PRN (18:02)
[2019-10-22] MEDS ORDERED: ACETAMINOPHEN TAB 325 MG TAB PO PRN (18:02)
--- NOTE | 2019-10-22 18:02 | P.HPIM ---
History of Present Illness H&P Date: 10/22/19 Chief Complaint: Not feeling well History of present complaint: This is a very pleasant 89-year-old patient of Dr. price . Chronic stable medical conditions include COPD, hypertension, hyperlipidemia, coronary artery disease, mild cognitive impairment, coronary artery disease with prior stent, chronic kidney disease stage III.. Has a long-standing history of chronic d izziness. Was here a month ago for the same. Was supposed to follow with ENT. Patient did not keep his appointment. Patient now presents with feeling tired rundown. Has a cough ingestion unable to expectorate only small amounts. No obvious fever and chills. Appetite is okay. Patient is at the bedside. Admitted with pneumonia.. Review of systems: GEN.: Tired EYES: None HEENT: Hard of hearing NECK: None RESPIRATORY: As above CARDIOVASCULAR: None GASTROINTESTINAL: None GENITOURINARY: None MUSCULOSKELETAL: Pain in the joints LYMPHATICS: None HEMATOLOGICAL: None PSYCHIATRY: None NEUROLOGICAL: Chronic dizziness, uses a walker Family history: Alcoholism Social history: -Smoked for 55 years stopped about 20 years ago. . Does use a walker. Did work in the [employer]. 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 Physical examination: VITAL SIGNS: 97.6, 51, 16, 148/72, 97% GENERAL: BMI 27.3, laying in bed, but tired EYES: Pupils equal. Conjunctiva normal. HEENT: External appearance of nose and ears normal, oral cavity grossly normal. Decreased hearing NECK: JVD not raised; masses not palpable. HEART: First and second heart sounds are normal; no edema. LUNGS: Respiratory rate increased, diminished breath sounds ABDOMEN: Soft, nontender, liver spleen not palpable, no masses palpable. PSYCH: Able to answer questions sometimes slowly. NEUROLOGICAL: Cranial nerves grossly intact; no facial asymmetry, power and sensation grossly intact. Investigations: White count 8.2 hemoglobin 11.8 potassium 4 bun 17 creatinine 1.39 EKG tracing personally reviewed by [id number] paced rhythm Chest x-ray film personally reviewed by me-infiltrate COVID 19 testing is pending Assessment: -Pneumonia suspect gram-negative organism, POA -COPD in an ex-smoker -Mild cognitive impairment from underlying dementia -Hyperlipidemia -Essential hypertension -Coronary artery disease with prior history of stent -Chronic kidney disease stage III from nephrosclerosis Plan: -Care was discussed the patient at the bedside. Home medications resumed. Started on IV ceftriaxone. We'll also add bronchodilators. Past Medical History Past Medical History: Chest Pain / Angina, COPD, Dementia, Hyperlipidemia, Hypertension, Myocardial Infarction (NM), Renal Disease Additional Past Medical History / Comment(s): aneurysm, colon cancer Last Myocardial Infarction Date:: unknown History of Any Multi-Drug Resistant Organisms: None Reported Past Surgical History: Heart Catheterization With Stent Additional Past Surgical History / Comment(s): aneurysm repair to heart and abd Past Anesthesia/Blood Transfusion Reactions: No Reported Reaction Date of Last Stent Placement:: unknown Past Psychological History: Depression Smoking Status: Former smoker Past Alcohol Use History: None Reported Past Drug Use History: None Reported - Past Family History Father Additional Family Medical History / Comment(s): alcoholic Mother Additional Family Medical History / Comment(s): anerysm, of NM Medications and Allergies Home Medications Medication Instructions Recorded Confirmed Type ALPRAZolam [Xanax] 0.5 mg PO BID PRN 01/21/17 10/22/19 History ARIPiprazole [Abilify] 2 mg PO HS 01/21/17 10/22/19 History Aspirin EC [Ecotrin Low Dose] 81 mg PO DAILY 01/21/17 10/22/19 History Atorvastatin [Lipitor] 40 mg PO DAILY 01/21/17 10/22/19 History DULoxetine HCL [Cymbalta] 30 mg PO DAILY 01/21/17 10/22/19 History Digoxin [Lanoxin] 125 mcg PO DAILY 01/21/17 10/22/19 History Diphenox-Atrop 2.5-0.025 mg 2 tab PO TID PRN 01/21/17 10/22/19 History [Lomotil] Furosemide [Lasix] 40 mg PO DAILY 01/21/17 10/22/19 History Levothyroxine Sodium [Synthroid] 125 mcg PO DAILY 01/21/17 10/22/19 History Meclizine [Antivert] 25 mg PO TID 01/21/17 10/22/19 History Memantine [Namenda] 10 mg PO AC-BID 01/21/17 10/22/19 History Metoprolol Succinate (ER) [Toprol 25 mg PO BID 01/21/17 10/22/19 History XL] Mirtazapine [Remeron] 30 mg PO HS 01/21/17 10/22/19 History Nitroglycerin Sl Tabs [Nitrostat] 0.4 mg SUBLINGUAL Q5M PRN 01/21/17 10/22/19 History Fluticasone Nasal [place] [Flonase 1 spr EA NOSTRIL DAILY 04/09/19 10/22/19 History Nasal [place]] Omeprazole 20 mg PO DAILY 04/09/19 10/22/19 History Tamsulosin [Flomax] 0.4 mg PO DAILY 04/09/19 10/22/19 History Allergies Allergy/AdvReac Type Severity Reaction Status Date / Time warfarin [From Coumadin] AdvReac Unknown Verified 10/22/19 10:19 Physical Exam Vitals: Vital Signs Temp Pulse Resp BP Pulse Ox 10/22/19 11:39 148/72 10/22/19 11:00 50 L 14 97 10/22/19 10:30 50 L 18 96 10/22/19 10:15 50 L 16 91 L 10/22/19 09:30 49 L 14 95 10/22/19 08:49 98.2 F 53 L 18 149/103 95 Intake and Output 10/21/19 10/22/19 10/22/19 22:59 06:59 14:59 Other: Weight 86.183 kg Results CBC & Chem 7: 10/22/19 09:23 10/22/19 09:23 Labs: Abnormal Lab Results - Last 24 Hours (Table) 10/22/19 10/22/19 10/22/19 Range/Units 09:11 09:23 09:23 RBC 4.22 L (4.30-5.90) m/uL Hgb 11.8 L (13.0-17.5) gm/dL Hct 37.0 L (39.0-53.0) % RDW 15.8 H (11.5-15.5) % Lymphocytes # 0.8 L (1.0-4.8) k/uL Creatinine 1.39 H (0.66-1.25) mg/dL Glucose 101 H (74-99) mg/dL POC Glucose (mg/dL) 103 H (75-99) mg/dL Total Protein 6.0 L (6.3-8.2) g/dL
[2019-10-22] MEDS: predniSONE 20 MG TAB PO SCH (19:58)
[2019-10-22] MEDS: ENOXAPARIN 40 MG/0.4 ML SYRINGE SQ SCH (19:58)
[2019-10-22] MEDS: METOPROLOL SUCCINATE (ER) 25 MG TAB.ER.24H PO SCH (21:15)
[2019-10-22] MEDS: ARIPiprazole 2 MG TAB PO SCH (21:15)
[2019-10-22] MEDS: guaiFENesin 600 MG TABLET.ER PO SCH (21:15)
[2019-10-22] MEDS: MIRTAZAPINE 15 MG TAB PO SCH (21:15)
[2019-10-22] MEDS: IPRATROPIUM-ALBUTEROL 3 ML NEB INHALATION SCH (21:27)
[2019-10-23] MEDS: LEVOTHYROXINE 125 MCG TAB PO SCH (05:46)
[2019-10-23] MEDS: IPRATROPIUM-ALBUTEROL 3 ML NEB INHALATION SCH ×4 (07:12→18:52)
[2019-10-23] MEDS: ENOXAPARIN 40 MG/0.4 ML SYRINGE SQ SCH (07:31)
[2019-10-23] MEDS: predniSONE 20 MG TAB PO SCH (07:31)
[2019-10-23] MEDS: TAMSULOSIN 0.4 MG CAP.ER.24H PO SCH (07:32)
[2019-10-23] MEDS: DIGOXIN 125 MCG TAB PO SCH (07:32)
[2019-10-23] MEDS: ATORVASTATIN 40 MG TAB PO SCH (07:32)
[2019-10-23] MEDS: MECLIZINE 25 MG TAB PO SCH ×3 (07:32→21:05)
[2019-10-23] MEDS: AZITHROMYCIN 500 MG TAB PO SCH (07:32)
[2019-10-23] MEDS: guaiFENesin 600 MG TABLET.ER PO SCH ×2 (07:32→07:33)
[2019-10-23] MEDS: DULoxetine HCL 30 MG CAPSULE.DR PO SCH (07:32)
[2019-10-23] MEDS: METOPROLOL SUCCINATE (ER) 25 MG TAB.ER.24H PO SCH ×2 (07:32→21:05)
[2019-10-23] MEDS: ASPIRIN 81 MG PO SCH (07:33)
[2019-10-23] MEDS: MEMANTINE 10 MG TAB PO SCH ×2 (07:33→16:33)
[2019-10-23] MEDS ORDERED: PANTOPRAZOLE 40 MG TABLET PO SCH (09:00)
--- NOTE | 2019-10-23 13:53 | XR ---
EXAMINATION TYPE: XR chest 2V DATE OF EXAM: 10/23/2019 COMPARISON: 10/22/2019 TECHNIQUE: PA and lateral views submitted. HISTORY: Pneumonia FINDINGS: Aortic stent noted with large aneurysm suspected. Diffuse interstitial pattern with pleural-based thi ckening and small effusion greater on the left. Bilateral basilar infiltrate. Cardiac device seen. Se remy arthropathy of the shoulders. Postsurgical change overlying the cervical spine. IMPRESSION: 1. Bilateral lower lobe infiltrate and small left effusion. Correlate for interstitial pneumonitis or mild venous congestion. Findings similar to the prior exam.
--- NOTE | 2019-10-23 16:26 | P.PN ---
Progress Note - Text Progress Note Date: 10/23/19 Chief Complaint: Not feeling well History of present complaint: This is a very pleasant 89-year-old patient of Dr. price . Chronic stable medical conditions include COPD, hypertension, hyperlipidemia, coronary artery disease, mild cognitive impairment, coronary artery disease with prior stent, chronic kidney disease stage III.. Has a long-standing history of chronic dizziness. Was here a month ago for the same. Was supposed to follow with ENT. Patient did not keep his appointment. Patient now presents with feeling tired rundown. Has a cough ingestion unable to expectorate only small amounts. No obvious fever and chills. Appetite is okay. Patient is at the bedside. Admitted with pneumonia.. Today-feeling a bit better. Cough is congested. Appetite improving. Review of systems: Was done for constitutional, cardiovascular, GI, pulmonary. relevant finding as above Active Medications Acetaminophen (Tylenol Tab) 650 mg PO Q6HR PRN PRN Reason: Mild Pain or Fever > 100.5 Al Hydroxide/Mg Hydroxide (Maalox) 15 ml PO Q6HR PRN PRN Reason: Indigestion Albuterol/Ipratropium (Duoneb 0.5 Mg-3 Mg/3 Ml Soln) 3 ml INHALATION RT-QID [facility] Last Admin: 10/23/19 15:18 Dose: Not Given Documented by: Alprazolam (Xanax) 0.5 mg PO BID PRN PRN Reason: Anxiety Aripiprazole (Abilify) 2 mg PO HS [facility] Last Admin: 10/22/19 21:15 Dose: 2 mg Documented by: Aspirin (Aspirin) 81 mg PO DAILY [facility] Last Admin: 10/23/19 07:33 Dose: 81 mg Documented by: Atorvastatin Calcium (Lipitor) 40 mg PO DAILY [facility] Last Admin: 10/23/19 07:32 Dose: 40 mg Documented by: Azithromycin (Zithromax) 500 mg PO DAILY [facility] Last Admin: 10/23/19 07:32 Dose: 500 mg Documented by: Calcium Carbonate/Glycine (Tums) 1,000 mg PO Q4HR PRN PRN Reason: Dyspepsia Digoxin (Lanoxin) 125 mcg PO DAILY [facility] Last Admin: 10/23/19 07:32 Dose: 125 mcg Documented by: Diphenoxylate HCl/Atropine (Lomotil) 2 each PO TID PRN PRN Reason: Diarrhea Duloxetine HCl (Cymbalta) 30 mg PO DAILY [facility] Last Admin: 10/23/19 07:32 Dose: 30 mg Documented by: Enoxaparin Sodium (Lovenox) 40 mg SQ DAILY [facility] Last Admin: 10/23/19 07:31 Dose: 40 mg Documented by: Guaifenesin (Mucinex) 1,200 mg PO Q12HR [facility] Last Admin: 10/23/19 07:33 Dose: 1,200 mg Documented by: Ceftriaxone Sodium 1 gm/ (Sodium Chloride) 50 mls @ 100 mls/hr IVPB Q24HR [facility] Stop: 10/26/19 09:01 Last Admin: 10/23/19 07:49 Dose: 100 mls/hr Documented by: Lactulose (Cephulac) 20 gm PO DAILY PRN PRN Reason: Constipation Levothyroxine Sodium (Synthroid) 125 mcg PO 0630 [facility] Last Admin: 10/23/19 05:46 Dose: 125 mcg Documented by: Magnesium Hydroxide (Milk Of Magnesia) 2,400 mg PO DAILY PRN PRN Reason: Constipation Meclizine HCl (Antivert) 25 mg PO TID [facility] Last Admin: 10/23/19 07:32 Dose: 25 mg Documented by: Melatonin (Melatonin) 3 mg PO HS PRN PRN Reason: Insomnia Memantine (Namenda) 10 mg PO AC-BID [facility] Last Admin: 10/23/19 07:33 Dose: 10 mg Documented by: Metoprolol Succinate (Toprol Xl) 25 mg PO BID [facility] Last Admin: 10/23/19 07:32 Dose: 25 mg Documented by: Mirtazapine (Remeron) 30 mg PO HS [facility] Last Admin: 10/22/19 21:15 Dose: 30 mg Documented by: Miscellaneous Information (Pneumonia Protocol Utilized) 1 each PO ONCE PRN PRN Reason: Per Protocol Naloxone HCl (Narcan) 0.2 mg IV Q2M PRN PRN Reason: Opioid Reversal Nitroglycerin (Nitrostat) 0.4 mg SUBLINGUAL Q5M PRN PRN Reason: Chest Pain Pantoprazole Sodium (Protonix) 40 mg PO DAILY [facility] Last Admin: 10/23/19 07:33 Dose: 40 mg Documented by: Prednisone () 40 mg PO DAILY [facility] Last Admin: 07/05/20 07:31 Dose: 40 mg Documented by: Tamsulosin HCl (Flomax) 0.4 mg PO DAILY [facility] Last Admin: 10/23/19 07:32 Dose: 0.4 mg Documented by: Physical examination: VITAL SIGNS: 98.5, 51, 17, 166/81, 94% on 3 L GENERAL: BMI 27.3, laying in bed, looking better EYES: Pupils equal. Conjunctiva normal. HEENT: External appearance of nose and ears normal, oral cavity grossly normal. Decreased hearing NECK: JVD not raised; masses not palpable. HEART: First and second heart sounds are normal; no edema. LUNGS: Respiratory rate increased, diminished breath sounds ABDOMEN: Soft, nontender, liver spleen not palpable, no masses palpable. Investigations: White count 8.2 hemoglobin 11.8 potassium 4 bun 17 creatinine 1.39 EKG tracing personally reviewed by [id number] paced rhythm Chest x-ray film personally reviewed by me-infiltrate COVID 19 testing is pending Assessment: -Pneumonia suspect gram-negative organism, POA -COPD in an ex-smoker -Mild cognitive impairment from underlying dementia -Hyperlipidemia -Essential hypertension -Coronary artery disease with prior history of stent -Chronic kidney disease stage III from nephrosclerosis Plan: Check labs in the morning including pro calcitonin. Improving. Hopefully home in 24 hours. Discussed with the patient.
[2019-10-23] MEDS: MIRTAZAPINE 15 MG TAB PO SCH (21:05)
[2019-10-23] MEDS: ARIPiprazole 2 MG TAB PO SCH (21:05)
[2019-10-24] MEDS: LEVOTHYROXINE 125 MCG TAB PO SCH (06:13)
[2019-10-24] MEDS: IPRATROPIUM-ALBUTEROL 3 ML NEB INHALATION SCH ×2 (07:34→11:29)
[2019-10-24 07:57] LABS: Calcium 9.4 mg/dL (8.4-10.2); Potassium 3.8 mmol/L (3.5-5.1)
[2019-10-24] MEDS: ATORVASTATIN 40 MG TAB PO SCH (08:45)
[2019-10-24] MEDS: predniSONE 20 MG TAB PO SCH (08:45)
[2019-10-24] MEDS: ENOXAPARIN 40 MG/0.4 ML SYRINGE SQ SCH (08:45)
[2019-10-24] MEDS: DULoxetine HCL 30 MG CAPSULE.DR PO SCH (08:45)
[2019-10-24] MEDS: TAMSULOSIN 0.4 MG CAP.ER.24H PO SCH (08:45)
[2019-10-24] MEDS: AZITHROMYCIN 500 MG TAB PO SCH (08:45)
[2019-10-24] MEDS: MECLIZINE 25 MG TAB PO SCH (08:45)
[2019-10-24] MEDS: MEMANTINE 10 MG TAB PO SCH (08:45)
[2019-10-24] MEDS: ASPIRIN 81 MG PO SCH (08:45)
[2019-10-24] MEDS: guaiFENesin 600 MG TABLET.ER PO SCH (08:45)
[2019-10-24] MEDS ORDERED: predniSONE 10 MG TAB PO SCH (09:00)
[2019-10-24] MEDS: DIGOXIN 125 MCG TAB PO SCH (11:58)
[2019-10-24] MEDS: METOPROLOL SUCCINATE (ER) 25 MG TAB.ER.24H PO SCH (11:59)
[2019-10-24 13:07] VITALS: BP 165/83; PULSE 60; RESP 18; TEMP 98.2
--- NOTE | 2019-10-25 23:37 | P.DS ---
Providers Date of admission: 10/24/19 10:10 Expected date of discharge: 10/24/19 Attending physician: Stevo Guevara Primary care physician: Harvinder Jimenez [facility] Course: Chief Complaint: Not feeling well History of present complaint: This is a very pleasant 89-year-old patient of Dr. jimenez . Chronic stable medical conditions include COPD, hypertension, hyperlipidemia, coronary artery disease, mild cognitive impairment, coronary artery disease with prior stent, chronic kidney disease stage III.. Has a long-standing history of chronic dizziness. Was here a month ago for the same. Was supposed to follow with ENT. Patient did not keep his appointment. Patient now presents with feeling tired rundown. Has a cough ingestion unable to expectorate only small amounts. No obvious fever and chills. Appetite is okay. Admitted with pneumonia.. Today-respiratory symptoms much improved. Slight cough. Eating better. Discussed with patient. Review of systems: Was done for constitutional, cardiovascular, GI, pulmonary. relevant finding as above Physical examination: VITAL SIGNS: 98.2, 60, 18, 165/83, 94% on 2 L, 87% on room air GENERAL: BMI 27.3, laying in bed, looking better EYES: Pupils equal. Conjunctiva normal. HEENT: External appearance of nose and ears normal, oral cavity grossly normal. Decreased hearing NECK: JVD not raised; masses not palpable. HEART: First and second heart sounds are normal; no edema. LUNGS: Respiratory rate increased, diminished breath sounds ABDOMEN: Soft, nontender, liver spleen not palpable, no masses palpable. Investigations: Bun 22 creatinine 1.51 Previous testing White count 8.2 hemoglobin 11.8 potassium 4 bun 17 creatinine 1.39 EKG tracing personally reviewed by [id number] paced rhythm Chest x-ray film personally reviewed by me-infiltrate COVID 19 testing is pending Assessment: -Pneumonia suspect gram-negative organism, POA -COPD in an ex-smoker -Mild cognitive impairment from underlying dementia -Hyperlipidemia -Essential hypertension -Coronary artery disease with prior history of stent -Chronic kidney disease stage III from nephrosclerosis -Acute hypoxic respiratory failure from pneumonia, POA Disposition: Home Patient Condition at Discharge: Stable Plan - Discharge Summary New Discharge Prescriptions: New Cefuroxime Axetil [Ceftin] 500 mg PO BID 3 Days #6 tab Ipratropium-Albuterol Nebulize [Duoneb 0.5 mg-3 mg/3 ml Soln] 3 ml INHALATION TID #90 ml predniSONE 0 mg PO DIRECTED #12 tab Azithromycin [Zithromax] 500 mg PO DAILY #3 tab Continue Nitroglycerin Sl Tabs [Nitrostat] 0.4 mg SUBLINGUAL Q5M PRN PRN Reason: Chest Pain Mirtazapine [Remeron] 30 mg PO HS Metoprolol Succinate (ER) [Toprol XL] 25 mg PO BID Memantine [Namenda] 10 mg PO AC-BID DULoxetine HCL [Cymbalta] 30 mg PO DAILY Diphenox-Atrop 2.5-0.025 mg [Lomotil] 2 tab PO TID PRN PRN Reason: Diarrhea Digoxin [Lanoxin] 125 mcg PO DAILY Aspirin EC [Ecotrin Low Dose] 81 mg PO DAILY ARIPiprazole [Abilify] 2 mg PO HS ALPRAZolam [Xanax] 0.5 mg PO BID PRN PRN Reason: Anxiety Levothyroxine Sodium [Synthroid] 125 mcg PO DAILY Atorvastatin [Lipitor] 40 mg PO DAILY Fluticasone Nasal [place] [Flonase Nasal [place]] 1 spr EA NOSTRIL DAILY Tamsulosin [Flomax] 0.4 mg PO DAILY Omeprazole 20 mg PO DAILY Changed Meclizine [Antivert] 12.5 mg PO TID #0 No Action Furosemide [Lasix] 40 mg PO DAILY Discharge Medication List ALPRAZolam [Xanax] 0.5 mg PO BID PRN 01/21/17 [History] ARIPiprazole [Abilify] 2 mg PO HS 01/21/17 [History] Aspirin EC [Ecotrin Low Dose] 81 mg PO DAILY 01/21/17 [History] Atorvastatin [Lipitor] 40 mg PO DAILY 01/21/17 [History] DULoxetine HCL [Cymbalta] 30 mg PO DAILY 01/21/17 [History] Digoxin [Lanoxin] 125 mcg PO DAILY 01/21/17 [History] Diphenox-Atrop 2.5-0.025 mg [Lomotil] 2 tab PO TID PRN 01/21/17 [History] Furosemide [Lasix] 40 mg PO DAILY 01/21/17 [History] Levothyroxine Sodium [Synthroid] 125 mcg PO DAILY 01/21/17 [History] Memantine [Namenda] 10 mg PO AC-BID 01/21/17 [History] Metoprolol Succinate (ER) [Toprol XL] 25 mg PO BID 01/21/17 [History] Mirtazapine [Remeron] 30 mg PO HS 01/21/17 [History] Nitroglycerin Sl Tabs [Nitrostat] 0.4 mg SUBLINGUAL Q5M PRN 01/21/17 [History] Fluticasone Nasal [place] [Flonase Nasal [place]] 1 spr EA NOSTRIL DAILY 04/09/19 [History] Omeprazole 20 mg PO DAILY 04/09/19 [History] Tamsulosin [Flomax] 0.4 mg PO DAILY 04/09/19 [History] Azithromycin [Zithromax] 500 mg PO DAILY #3 tab 10/24/19 [Rx] Cefuroxime Axetil [Ceftin] 500 mg PO BID 3 Days #6 tab 10/24/19 [Rx] Ipratropium-Albuterol Nebulize [Duoneb 0.5 mg-3 mg/3 ml Soln] 3 ml INHALATION TID #90 ml 10/24/19 [Rx] Meclizine [Antivert] 12.5 mg PO TID #0 10/24/19 [Rx] predniSONE 0 mg PO DIRECTED #12 tab 10/24/19 [Rx] Follow up Appointment(s)/Referral(s): Harvinder Jimenez MD [Primary Care Provider] - 10/27/19 8:15 am Patient Instructions/Handouts: Cefuroxime (By mouth), Prednisone (By mouth), Azithromycin (By mouth), Ipratropium/Albuterol (By breathing), Vertigo (DC), Pneumonia (DC) Activity/Diet/Wound Care/Special Instructions: home fio2 2 l Discharge Disposition: HOME SELF-CARE
== END 2019-10-24 15:06 | disposition home or self-care (01) | DRG 177 ==
LOC: EC 08:41 → 5NMEDONC 10:58 → OBSVTOIN 10-24 10:10
PROVIDERS: ADMIT Hospitalist; ATTEND Hospitalist
DX: J15.6 Pneumonia due to other Gram-negative bacteria (principal); J96.01 Acute respiratory failure with hypoxia; J44.0 Chronic obstructive pulmonary disease with (acute) lower respiratory infection; Z20.828 Contact with and (suspected) exposure to other viral communicable diseases; F03.90 Unspecified dementia, unspecified severity, without behavioral disturbance, psychotic disturbance, mood disturbance, and anxiety; N18.3 Chronic kidney disease, stage 3 (moderate); R42 Dizziness and giddiness; I12.9 Hypertensive chronic kidney disease with stage 1 through stage 4 chronic kidney disease, or unspecified chronic kidney disease; E78.5 Hyperlipidemia, unspecified; F32.9 Major depressive disorder, single episode, unspecified; I25.10 Atherosclerotic heart disease of native coronary artery without angina pectoris; H91.90 Unspecified hearing loss, unspecified ear; I25.2 Old myocardial infarction; Z79.82 Long term (current) use of aspirin; Z79.899 Other long term (current) drug therapy; Z79.890 Hormone replacement therapy; Z85.038 Personal history of other malignant neoplasm of large intestine; Z98.890 Other specified postprocedural states; Z86.79 Personal history of other diseases of the circulatory system; Z95.5 Presence of coronary angioplasty implant and graft; Z87.891 Personal history of nicotine dependence; Z88.8 Allergy status to other drugs, medicaments and biological substances; Z81.1 Family history of alcohol abuse and dependence; Z82.49 Family history of ischemic heart disease and other diseases of the circulatory system
CPT/HCPCS: 36415; 70450; 71046; 80048; 80053; 83605; 83735; 84145; 84484; 85025; 85610; 85730; 87040; 93005; 94640; 96365; 96375; 99285

== ENCOUNTER 2019-10-29 22:22 | Inpatient (IN) | payer MEDICARE, OTHER ==
[2019-10-29] MEDS ORDERED: PANTOPRAZOLE 40 MG/10 ML VIAL IVP STA (22:40)
[2019-10-29] MEDS ORDERED: SODIUM CHLORIDE 0.9% 1,000 ML IV ONE (22:45)
--- NOTE | 2019-10-29 23:14 | ED ---
General Adult HPI - General Source: patient, RN notes reviewed, old records reviewed Mode of arrival: wheelchair Limitations: no limitations <Marcelino Yañez - Last Filed: 10/30/19 19:06> - History of Present Illness Onset/Timin -: hour(s) Severity scale (1-10): 0 Consistency: constant Improves with: none Worsens with: none <Blane Jackman - Last Filed: 11/04/19 06:15> - General Chief complaint: GI Bleed Stated complaint: Rectal Bleeding Time Seen by Provider: 10/29/19 22:31 - History of Present Illness Initial comments: 89 year old male patient with extensive past medical history presents to ED with cheif complaint of rectal bleeding. Patient reports that this began at 8pm. He denies any associated pain. Does report that he feels dizzy. Denies any other complaints at this time. (Marcelino Yañez) Patient is an 89-year-old man with, stated medical history which includes previous history of colon cancer resected approximately [address] 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 He has history of previous GI bleed which she was seen here for. Patient had a recurrence of bleeding approximately 8 PM. He has had multiple bright red bowel movements. Not seeing clots. Denies chest pain. No dyspnea. He is complaining of some dizziness but does also have history of vertigo. Patient having nausea no vomiting. (Blane Jackman) - Related Data Home Medications Medication Instructions Recorded Confirmed ALPRAZolam [Xanax] 0.5 mg PO BID PRN 01/21/17 10/29/19 ARIPiprazole [Abilify] 2 mg PO HS 01/21/17 10/29/19 Aspirin EC [Ecotrin Low Dose] 81 mg PO DAILY 01/21/17 10/29/19 Atorvastatin [Lipitor] 40 mg PO DAILY 01/21/17 10/29/19 DULoxetine HCL [Cymbalta] 30 mg PO DAILY 01/21/17 10/29/19 Digoxin [Lanoxin] 125 mcg PO DAILY 01/21/17 10/29/19 Furosemide [Lasix] 40 mg PO DAILY 01/21/17 10/29/19 Levothyroxine Sodium [Synthroid] 125 mcg PO DAILY 01/21/17 10/29/19 Memantine [Namenda] 10 mg PO AC-BID 01/21/17 10/29/19 Metoprolol Succinate (ER) [Toprol 25 mg PO BID 01/21/17 10/29/19 XL] Mirtazapine [Remeron] 30 mg PO HS 01/21/17 10/29/19 Nitroglycerin Sl Tabs [Nitrostat] 0.4 mg SUBLINGUAL Q5M PRN 01/21/17 10/29/19 Fluticasone Nasal [place] [Flonase 1 spr EA NOSTRIL DAILY 04/09/19 10/29/19 Nasal [place]] Tamsulosin [Flomax] 0.4 mg PO DAILY 04/09/19 10/29/19 Ipratropium-Albuterol Nebulize 3 ml INHALATION RT-TID 10/29/19 10/29/19 [Duoneb 0.5 mg-3 mg/3 ml Soln] Vitamin D3 50,000iu 50,000 unit PO Q7D 10/29/19 10/29/19 Previous Rx's Medication Instructions Recorded Meclizine [Antivert] 12.5 mg PO TID #0 10/24/19 Acetaminophen Tab [Tylenol] 650 mg PO Q4HR PRN tab 11/02/19 Omeprazole [PriLOSEC] 20 mg PO AC-BID #60 cap 11/02/19 Allergies Allergy/AdvReac Type Severity Reaction Status Date / Time warfarin [From Coumadin] AdvReac Unknown Verified 10/29/19 23:28 Review of Systems ROS Other: All systems not noted in ROS Statement are negative. <Marcelino Yañez - Last Filed: 10/30/19 19:06> ROS Other: All systems not noted in ROS Statement are negative. Constitutional: Denies: fever, chills Respiratory: Denies: cough, dyspnea Cardiovascular: Denies: chest pain, palpitations, edema Gastrointestinal: Reports: nausea, hematochezia. Denies: abdominal pain, vomiting, diarrhea, constipation, melena Genitourinary: Denies: dysuria, hematuria Musculoskeletal: Reports: back pain Skin: Denies: rash Neurological: Denies: headache, weakness, numbness Hematological/Lymphatic: Denies: easy bleeding <Blane Jackman - Last Filed: 11/04/19 06:15> ROS Statement: Those systems with pertinent positive or pertinent negative responses have been documented in the HPI. Past Medical History Past Medical History: Chest Pain / Angina, COPD, Dementia, Hyperlipidemia, Hypertension, Myocardial Infarction ([place]), Renal Disease Additional Past Medical History / Comment(s): aneurysm, colon cancer Last Myocardial Infarction Date:: unknown History of Any Multi-Drug Resistant Organisms: None Reported Past Surgical History: Heart Catheterization With Stent Additional Past Surgical History / Comment(s): aneurysm repair to heart and abd Past Anesthesia/Blood Transfusion Reactions: No Reported Reaction Date of Last Stent Placement:: unknown Past Psychological History: Depression Smoking Status: Former smoker Past Alcohol Use History: None Reported Past Drug Use History: None Reported - Past Family History Father Additional Family Medical History / Comment(s): alcoholic Mother Additional Family Medical History / Comment(s): anerysm, of [place] <Marcelino Yañez - Last Filed: 10/30/19 19:06> General Exam Limitations: no limitations <Marcelino Yañez Last Filed: 10/30/19 19:06> General appearance: alert, in no apparent distress Head exam: Present: atraumatic, normocephalic Eye exam: Present: normal appearance. Absent: scleral icterus, conjunctival injection ENT exam: Present: mucous membranes dry Neck exam: Present: normal inspection Respiratory exam: Present: normal lung sounds bilaterally. Absent: respiratory distress, wheezes, rales, rhonchi, stridor Cardiovascular Exam: Present: normal rhythm, bradycardia, normal heart sounds. Absent: systolic murmur, diastolic murmur, rubs, gallop GI/Abdominal exam: Present: soft, hyperactive bowel sounds, hernia (The patient has a left inguinal hernia which is nontender and is easily reduced at the bedside.). Absent: distended, tenderness, guarding, rebound, mass, pulsatile mass Extremities exam: Present: normal inspection, normal capillary refill. Absent: pedal edema, calf tenderness Back exam: Present: normal inspection. Absent: CVA tenderness (R), CVA tender ness (L) Neurological exam: Present: alert Skin exam: Present: warm, dry, intact, normal color. Absent: rash <Blane Jackman - Last Filed: 11/04/19 06:15> Course <Blane Jackman - Last Filed: 11/04/19 06:15> Vital Signs 10/29/19 10/29/19 10/29/19 22:27 22:43 22:45 Temperature 97.9 F Pulse Rate 122 H 51 L 52 L Respiratory 16 16 Rate Blood Pressure 149/80 159/82 O2 Sat by Pulse 94 L 97 93 L Oximetry 10/29/19 10/29/19 10/29/19 22:50 22:55 23:00 Temperature Pulse Rate 50 L Respiratory Rate Blood Pressure 159/82 159/82 159/82 O2 Sat by Pulse 96 98 97 Oximetry 10/29/19 10/29/19 10/29/19 23:05 23:10 23:15 Temperature Pulse Rate 54 L Respiratory 18 18 Rate Blood Pressure 138/107 138/107 145/76 O2 Sat by Pulse 96 98 97 Oximetry 10/29/19 10/29/19 10/29/19 23:20 23:25 23:35 Temperature Pulse Rate 50 L 50 L Respiratory 18 18 Rate Blood Pressure 142/89 162/79 157/85 O2 Sat by Pulse 97 98 Oximetry 10/29/19 10/29/19 10/29/19 23:45 23:50 23:55 Temperature Pulse Rate 51 L 51 L 50 L Respiratory 16 Rate Blood Pressure 126/81 126/82 144/82 O2 Sat by Pulse 96 95 97 Oximetry 10/30/19 10/30/19 10/30/19 00:00 00:05 00:10 Temperature Pulse Rate 52 L 53 L 49 L Respiratory Rate Blood Pressure 150/83 158/81 156/82 O2 Sat by Pulse 97 97 96 Oximetry 10/30/19 10/30/19 10/30/19 00:15 00:20 00:25 Temperature Pulse Rate 50 L 49 L 50 L Respiratory Rate Blood Pressure 150/77 148/78 151/79 O2 Sat by Pulse 97 96 98 Oximetry 10/30/19 10/30/19 10/30/19 00:30 00:35 00:40 Temperature Pulse Rate 52 L 50 L 52 L Respiratory Rate Blood Pressure 145/82 155/78 148/75 O2 Sat by Pulse 99 97 97 Oximetry 10/30/19 10/30/19 10/30/19 00:45 00:50 00:55 Temperature Pulse Rate 50 L 50 L 50 L Respiratory Rate Blood Pressure 149/83 151/78 144/78 O2 Sat by Pulse 97 96 97 Oximetry 10/30/19 10/30/19 10/30/19 01:00 01:30 01:55 Temperature 97.4 F L Pulse Rate 50 L 49 L 50 L Respiratory 16 Rate Blood Pressure 136/78 143/82 O2 Sat by Pulse 97 96 96 Oximetry 10/30/19 10/30/19 10/30/19 02:00 02:09 02:30 Temperature 97.4 F L Pulse Rate 54 L 56 L 50 L Respiratory 16 Rate Blood Pressure 148/77 O2 Sat by Pulse 97 98 97 Oximetry 10/30/19 10/30/19 02:39 03:00 Temperature 97.5 F L Pulse Rate 50 L 56 L Respiratory 16 Rate Blood Pressure 150/83 154/81 O2 Sat by Pulse 98 Oximetry - Reevaluation(s) Reevaluation #1: 10/30/19 02:21 This patient is an 89-year-old man presenting with complaint of right red rectal bleeding. On arrival, patient briefly tachycardic then remained with a heart rate in the 50s and blood pressure in the 140s to 150s over 80s. The patient's workup included computed tomography scan of abdomen and pelvis which had a number concerning findings. There was some pleural thickening on the right which is concerning for possibility of leakage from the patient's aortic aneurysm. Unfortunately study was without contrast given the patient's kidney function. I discussed with patient and family that it is not possible answer the question whether there is some leakage without contrast, and at this point they would rather not receive IV contrast due to risk of kidney injury. They understand that missing bleeding from aneurysm may result in or disability. Case discussed with Dr. Bryant, Dr. Montgomery, and Dr. Webb and recommendations are incorporated. Discussed the extremely guarded prognosis with patient and at bedside. (Blane Jackman) Medical Decision Making - Lab Data Result diagrams: 10/30/19 14:11 10/30/19 08:53 <Marcelino Yañez - Last Filed: 10/30/19 19:06> - Lab Data Result diagrams: 11/02/19 06:01 11/02/19 06:01 <Blane Jackman - Last Filed: 11/04/19 06:15> - Lab Data Lab Results 10/29/19 10/29/19 10/29/19 Range/Units 22:46 22:49 22:49 WBC 10.6 (3.8-10.6) k/uL RBC 4.42 (4.30-5.90) m/uL Hgb 12.4 L (13.0-17.5) gm/dL Hct 39.6 (39.0-53.0) % MCV 89.5 (80.0-100.0) fL MCH 28.0 (25.0-35.0) pg MCHC 31.3 (31.0-37.0) g/dL RDW 15.8 H (11.5-15.5) % Plt Count 177 (150-450) k/uL Neutrophils % 79 % Lymphocytes % 12 % Monocytes % 5 % Eosinophils % 3 % Basophils % 0 % Neutrophils # 8.4 H (1.3-7.7) k/uL Lymphocytes # 1.3 (1.0-4.8) k/uL Monocytes # 0.6 (0-1.0) k/uL Eosinophils # 0.3 (0-0.7) k/uL Basophils # 0.0 (0-0.2) k/uL Hypochromasia Slight APTT 22.2 (22.0-30.0) sec Sodium (137-145) mmol/L Potassium (3.5-5.1) mmol/L Chloride (98-107) mmol/L Carbon Dioxide (22-30) mmol/L Anion Gap mmol/L BUN (9-20) mg/dL Creatinine (0.66-1.25) mg/dL Est GFR (CKD-EPI)AfAm (>60 ml/min/1.73 sqM) Est GFR (CKD-EPI)NonAf (>60 ml/min/1.73 sqM) Glucose (74-99) mg/dL Plasma Lactic Acid Raul (0.7-2.0) mmol/L Calcium (8.4-10.2) mg/dL Total Bilirubin (0.2-1.3) mg/dL AST (17-59) U/L ALT (4-49) U/L Alkaline Phosphatase (38-126) U/L Troponin I (0.000-0.034) ng/mL Total Protein (6.3-8.2) g/dL Albumin (3.5-5.0) g/dL Stool Occult Blood Positive (Negative) Blood Type Blood Type Recheck Bld Type Recheck Status Antibody Screen Crossmatch Spec Expiration Date 10/29/19 10/29/19 10/29/19 Range/Units 22:49 22:49 22:49 WBC (3.8-10.6) k/uL RBC (4.30-5.90) m/uL Hgb (13.0-17.5) gm/dL Hct (39.0-53.0) % MCV (80.0-100.0) fL MCH (25.0-35.0) pg MCHC (31.0-37.0) g/dL RDW (11.5-15.5) % Plt Count (150-450) k/uL Neutrophils % % Lymphocytes % % Monocytes % % Eosinophils % % Basophils % % Neutrophils # (1.3-7.7) k/uL Lymphocytes # (1.0-4.8) k/uL Monocytes # (0-1.0) k/uL Eosinophils # (0-0.7) k/uL Basophils # (0-0.2) k/uL Hypochromasia APTT (22.0-30.0) sec Sodium 140 (137-145) mmol/L Potassium 4.2 (3.5-5.1) mmol/L Chloride 106 (98-107) mmol/L Carbon Dioxide 27 (22-30) mmol/L Anion Gap 7 mmol/L BUN 32 H (9-20) mg/dL Creatinine 1.49 H (0.66-1.25) mg/dL Est GFR (CKD-EPI)AfAm 48 (>60 ml/min/1.73 sqM) Est GFR (CKD-EPI)NonAf 41 (>60 ml/min/1.73 sqM) Glucose 143 H (74-99) mg/dL Plasma Lactic Acid Raul (0.7-2.0) mmol/L Calcium 9.8 (8.4-10.2) mg/dL Total Bilirubin 0.6 (0.2-1.3) mg/dL AST 33 (17-59) U/L ALT 40 (4-49) U/L Alkaline Phosphatase 96 (38-126) U/L Troponin I 0.014 (0.000-0.034) ng/mL Total Protein 6.2 L (6.3-8.2) g/dL Albumin 3.8 (3.5-5.0) g/dL Stool Occult Blood (Negative) Blood Type A Positive Blood Type Recheck A Pos Bld Type Recheck Status No Antibody Screen NEGATIVE Crossmatch See Detail Spec Expiration Date 11/01/2019 - 234810/29/19 Range/Units 23:03 WBC (3.8-10.6) k/uL RBC (4.30-5.90) m/uL Hgb (13.0-17.5) gm/dL Hct (39.0-53.0) % MCV (80.0-100.0) fL MCH (25.0-35.0) pg MCHC (31.0-37.0) g/dL RDW (11.5-15.5) % Plt Count (150-450) k/uL Neutrophils % % Lymphocytes % % Monocytes % % Eosinophils % % Basophils % % Neutrophils # (1.3-7.7) k/uL Lymphocytes # (1.0-4.8) k/uL Monocytes # (0-1.0) k/uL Eosinophils # (0-0.7) k/uL Basophils # (0-0.2) k/uL Hypochromasia APTT (22.0-30.0) sec Sodium (137-145) mmol/L Potassium (3.5-5.1) mmol/L Chloride (98-107) mmol/L Carbon Dioxide (22-30) mmol/L Anion Gap mmol/L BUN (9-20) mg/dL Creatinine (0.66-1.25) mg/dL Est GFR (CKD-EPI)AfAm (>60 ml/min/1.73 sqM) Est GFR (CKD-EPI)NonAf (>60 ml/min/1.73 sqM) Glucose (74-99) mg/dL Plasma Lactic Acid Raul 1.5 (0.7-2.0) mmol/L Calcium (8.4-10.2) mg/dL Total Bilirubin (0.2-1.3) mg/dL AST (17-59) U/L ALT (4-49) U/L Alkaline Phosphatase (38-126) U/L Troponin I (0.000-0.034) ng/mL Total Protein (6.3-8.2) g/dL Albumin (3.5-5.0) g/dL Stool Occult Blood (Negative) Blood Type Blood Type Recheck Bld Type Recheck Status Antibody Screen Crossmatch Spec Expiration Date Critical Care Time Critical Care Time: Yes (40 minutes) <Blane Jackman - Last Filed: 11/04/19 06:15> Disposition Is patient prescribed a controlled substance at d/c from ED?: No <Marcelino Yañez - Last Filed: 10/30/19 19:06> <Blane Jackman - Last Filed: 11/04/19 06:15> Clinical Impression: GI bleed Disposition: ADMITTED IP TO THIS [facility] Condition: Serious
[2019-10-29 23:18] LABS: Basophils % (A) 0 %; Eosinophils # (A) 0.3 k/uL (0-0.7); Eosinophils % (A) 3 %; HCT 39.6 % (39.0-53.0); HGB 12.4 gm/dL (13.0-17.5); Hypochromasia Slight; Lymphocytes # (A) 1.3 k/uL (1.0-4.8); Lymphocytes % (A) 12 %; MCHC 31.3 g/dL (31.0-37.0); MCV 89.5 fL (80.0-100.0); Mean Platelet Volume 7.4; Monocytes # (A) 0.6 k/uL (0-1.0); Monocytes % (A) 5 %; Neutrophils # (A) 8.4 k/uL (1.3-7.7); Neutrophils % (A) 79 %; Platelet Count 177 k/uL (150-450); RBC 4.42 m/uL (4.30-5.90); RDW 15.8 % (11.5-15.5); WBC 10.6 k/uL (3.8-10.6)
[2019-10-29 23:29] LABS: Albumin 3.8 g/dL (3.5-5.0); Calcium 9.8 mg/dL (8.4-10.2); Potassium 4.2 mmol/L (3.5-5.1); Total Bilirubin 0.6 mg/dL (0.2-1.3); Total Protein 6.2 g/dL (6.3-8.2)
[2019-10-30] MEDS ORDERED: ONDANSETRON 4 MG/2 ML VIAL IVP STA ×2 (00:02→00:18)
--- NOTE | 2019-10-30 00:18 | CT ---
EXAMINATION TYPE: CT abdomen pelvis wo con DATE OF EXAM: 10/29/2019 COMPARISON: 03/09/2012 HISTORY: Severe Rectal bleeding. CT DLP: 994.3 mGycm Automated exposure control for dose reduction was used. Images obtained from the diaphragm to the floor the pelvis with no contrast. There is interstitial infiltrates and atelectasis at the lung bases. Heart is moderately enlarged. Th ere is stent in the thoracic and abdominal aorta. There is aneurysm of the descending thoracic aorta that measures up to 4.5 cm. There is aneurysm of the abdominal aorta that measures up to 4.4 cm. Ther e is a mild left pleural effusion or pleural thickening that measures up to 1 cm in thickness. This i s localized to the paraspinal region adjacent to the aneurysm. There are clips from cholecystectomy. Liver appears intact. There are calcified multiple small spleni c granulomata. The stomach is large and intact. The bile ducts are not dilated. There is no evidence of pancreatic mass. There is no adrenal mass. There are bilateral cysts on kidneys. The largest cyst measures 6.2 cm. The re is no hydronephrosis. Ureters are not dilated. There is no retroperitoneal adenopathy. 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 Bladder distends smoothly. There is left-sided inguinal hernia that appears to contain a loop of bowel with some incarceration. It is not clear if this loop is large or small bowel. The loop is dilated up to 3 cm. There are surgical clips at the ce cum. I see no evidence of free air. There is broad-based umbilical hernia that contains loop of small bowel without incarceration. There is multilevel spondylotic changes in the lumbar spine with spurring of the endplates and disc s pace narrowing. There is no compression fracture. The bony pelvis appears intact. Hip joints are inta ct. Small bowel in the abdomen measures up to 2.5 cm. There is no significant dilation. There are mul tiple surgical clips at the rectosigmoid junction. The prostate is enlarged and measures 4.7 cm. There is some mild perirectal fat stranding and suggestion of some wall thickening at the rectosigmoi d junction at the surgery site. This measures 5 cm in diameter. IMPRESSION: There is slight increased soft tissue density at the rectosigmoid junction that measures 4 cm on old exam and now measures 5 cm. The possibility of recurrent tumor should be considered. There is incarcerated left inguinal hernia containing a loop of bowel that is a change compared to ol d exam. There is some gaseous distention of the large bowel which is increased slightly compared to o ld exam. Partial obstruction at the level of the hernia or at the rectum should be considered. There is aneurysm of the thoracic and abdominal aorta as above with a stent. There is adjacent pleura l thickening. The possibility of leaking aneurysm should be considered. There is some mild atelectasi s right lung base. Broad-based umbilical hernia appears new compared to old exam without incarceration.
--- NOTE | 2019-10-30 00:52 | XR ---
EXAMINATION TYPE: XR chest 1V DATE OF EXAM: 10/30/2019 COMPARISON: 10/23/2019 HISTORY: Pneumonia TECHNIQUE: Single view FINDINGS: Heart is enlarged. There is aortic stent. There is some patchy interstitial infiltrates in both lower lobes. There is left axillary pacemaker. There is significant arthritic disease in the ori ulder joints. IMPRESSION: Pulmonary interstitial fibrosis. There is clearing of bilateral pleural fluid to some de gree compared to recent exam. No definite heart failure.
[2019-10-30] MEDS ORDERED: NALOXONE 0.4 MG/ML 1 ML VIAL IV PRN (02:25)
[2019-10-30] MEDS ORDERED: ACETAMINOPHEN TAB 325 MG TAB PO PRN (02:25)
[2019-10-30] MEDS ORDERED: MORPHINE SULFATE 2 MG/ML SYRINGE IV PRN (02:25)
[2019-10-30] MEDS: ONDANSETRON 4 MG/2 ML VIAL IVP PRN (03:34)
[2019-10-30] MEDS: SODIUM CHLORIDE 0.9% 1,000 ML IV SCH (03:35)
[2019-10-30 03:37] LABS: Glucose,Whole Blood 139 mg/dL (75-99)
[2019-10-30] MEDS: PANTOPRAZOLE 40 MG/10 ML VIAL IV SCH (08:22)
[2019-10-30 09:07] LABS: Basophils # (A) 0.1 k/uL (0-0.2); Basophils % (A) 0 %; Eosinophils # (A) 0.4 k/uL (0-0.7); Eosinophils % (A) 3 %; HCT 38.9 % (39.0-53.0); HGB 12.6 gm/dL (13.0-17.5); Hypochromasia Moderate; Lymphocytes # (A) 1.2 k/uL (1.0-4.8); Lymphocytes % (A) 10 %; MCH 29.7 pg (25.0-35.0); MCHC 32.3 g/dL (31.0-37.0); MCV 91.9 fL (80.0-100.0); Mean Platelet Volume 7.5; Monocytes # (A) 0.9 k/uL (0-1.0); Monocytes % (A) 7 %; Neutrophils # (A) 9.8 k/uL (1.3-7.7); Neutrophils % (A) 79 %; Platelet Count 158 k/uL (150-450); RBC 4.23 m/uL (4.30-5.90); RDW 15.3 % (11.5-15.5); WBC 12.5 k/uL (3.8-10.6)
[2019-10-30 09:19] LABS: INR 1.1 (<1.2); Potassium 4.5 mmol/L (3.5-5.1); Prothrombin Time 10.9 sec (9.0-12.0)
[2019-10-30] MEDS ORDERED: ALPRAZolam 0.5 MG TAB PO PRN (09:52)
[2019-10-30] MEDS ORDERED: NITROGLYCERIN SL TABS 0.4 MG TAB SUBLINGUAL PRN (09:52)
[2019-10-30] MEDS ORDERED: IPRATROPIUM-ALBUTEROL 3 ML NEB INHALATION PRN (09:59)
[2019-10-30] MEDS ORDERED: FUROSEMIDE 40 MG TAB PO SCH (10:00)
[2019-10-30] MEDS ORDERED: ERGOCALCIFEROL 50,000 UNIT CAP PO SCH (10:00)
--- NOTE | 2019-10-30 10:12 | P.CON ---
Consult Note - . Consult date: 10/30/19 Assessment/Plan:: Patient is an 89-year-old male who was admitted with history of recent bright red blood per rectum. Patient has a history of colon carcinoma. We are asked to see the patient in reference to his thoracic and abdominal aortic aneurysm r epairs performed 5 date years ago at an outside institution. Currently the patient denies any back or abdominal pain. Physical examination revealed femoral pulses are intact bilaterally. I did re view the computed tomography scan performed earlier this date which demonstrates both a thoracic stent graft and abdominal aortic stent graft. These procedures were performed without IV contrast and thus it is not possible to tell whether there is a endoleak although clinically I am not suspicious of an endoleak. The patient's creatinine has returned to normal and thus I feel a CTA can be perfor med however there is no urgency to this as multiple other medical problems need to be addressed. We will follow the patient.
[2019-10-30] MEDS: DIGOXIN 125 MCG TAB PO SCH (10:18)
[2019-10-30] MEDS: LEVOTHYROXINE 125 MCG TAB PO SCH (10:18)
[2019-10-30] MEDS: MECLIZINE 12.5 MG TAB PO SCH ×3 (10:18→20:40)
[2019-10-30] MEDS: DULoxetine HCL 30 MG CAPSULE.DR PO SCH (10:18)
[2019-10-30] MEDS: MEMANTINE 10 MG TAB PO SCH ×2 (10:19→17:31)
[2019-10-30] MEDS: FLUTICASONE 50MCG/SPRAY NASAL 16GM EA NOSTRIL SCH (10:22)
[2019-10-30] MEDS: ATORVASTATIN 40 MG TAB PO SCH (10:22)
[2019-10-30] MEDS: TAMSULOSIN 0.4 MG CAP.ER.24H PO SCH (10:24)
[2019-10-30] MEDS: METOPROLOL SUCCINATE (ER) 25 MG TAB.ER.24H PO SCH ×2 (10:24→20:40)
--- NOTE | 2019-10-30 10:31 | P.GSCN ---
History of Present Illness Consult date: 10/30/19 Reason for Consult: Lower GI bleed History of present illness: 89-year-old male presents to the hospital complaining of rectal bleeding. This apparently began yesterday evening around 8:00. The patient was complaining of some dizziness. No loss of consciousness. Patient with a history of previous rectal cancer. He states he underwent resection 43 years ago. He cannot recall the surgeon however per the ER records they stated Dr. Monsalve to the surgery. They stated the surgery was actually 23 years ago. Patient states he underwent chemotherapy and radiation therapy. Last colonoscopy he states 20 years ago. Patient slightly confused. History of previous abdominal and thoracic aortic stent grafting at the [facility] 5-8 years ago. Patient nauseated without vomiting. Hemoglobin on presentation was 12.4. Hemoglobin this morning 12.6. Hematologically stable. Remains in the ICU for observation purposes. Still having somewhat constant relatively low volume dark bloody stools. Some clots. CAT scan was performed which revealed induration at the colorectal anastomosis. This seems to be increased compared to a CAT scan for years ago. No obstructive pattern seen. Patient denies constipation. Some fluid left chest. Concern for possible aortic stent graft leak described. He was seen by vascular surgery this morning. This appears to be highly unlikely at this time. CAT scan unfortunately was performed without IV contrast. Patient also on CAT scan has a hernia left groin that was able to be reduced. Review of Systems The patient denies any acute changes in vision or hearing, no dysphagia or odynophagia, no chest pain or shortness of breath, no dysuria or hematuria, no headache, no runny nose, no unexplained weight loss Past Medical History Past Medical History: Chest Pain / Angina, COPD, Dementia, Hyperlipidemia, Hypertension, Myocardial Infarction ([place]), Renal Disease Additional Past Medical History / Comment(s): aneurysm, colon cancer Last Myocardial Infarction Date:: unknown History of Any Multi-Drug Resistant Organisms: None Reported Past Surgical History: Heart Catheterization With Stent, Pacemaker Additional Past Surgical History / Comment(s): aneurysm repair to heart and abd about 3 years ago. Pacemaker placed 20 years ago. Past Anesthesia/Blood Transfusion Reactions: No Reported Reaction Date of Last Stent Placement:: unknown Type of Cardiac Device: Permanent Pacemaker Device Placement Date:: unknown Past Psychological History: Depression Smoking Status: Never smoker Past Alcohol Use History: None Reported Past Drug Use History: None Reported - Past Family History Father Additional Family Medical History / Comment(s): alcoholic Mother Additional Family Medical History / Comment(s): anerysm, of [place] Medications and Allergies Home Medications Medication Instructions Recorded Confirmed Type ALPRAZolam [Xanax] 0.5 mg PO BID PRN 01/21/17 10/29/19 History ARIPiprazole [Abilify] 2 mg PO HS 01/21/17 10/29/19 History Aspirin EC [Ecotrin Low Dose] 81 mg PO DAILY 01/21/17 10/29/19 History Atorvastatin [Lipitor] 40 mg PO DAILY 01/21/17 10/29/19 History DULoxetine HCL [Cymbalta] 30 mg PO DAILY 01/21/17 10/29/19 History Digoxin [Lanoxin] 125 mcg PO DAILY 01/21/17 10/29/19 History Diphenox-Atrop 2.5-0.025 mg 2 tab PO QID PRN 01/21/17 10/29/19 History [Lomotil] Furosemide [Lasix] 40 mg PO DAILY 01/21/17 10/29/19 History Levothyroxine Sodium [Synthroid] 125 mcg PO DAILY 01/21/17 10/29/19 History Memantine [Namenda] 10 mg PO AC-BID 01/21/17 10/29/19 History Metoprolol Succinate (ER) [Toprol 25 mg PO BID 01/21/17 10/29/19 History XL] Mirtazapine [Remeron] 30 mg PO HS 01/21/17 10/29/19 History Nitroglycerin Sl Tabs [Nitrostat] 0.4 mg SUBLINGUAL Q5M PRN 01/21/17 10/29/19 History Fluticasone Nasal [place] [Flonase 1 spr EA NOSTRIL DAILY 04/09/19 10/29/19 History Nasal [place]] Omeprazole 20 mg PO DAILY 04/09/19 10/29/19 History Tamsulosin [Flomax] 0.4 mg PO DAILY 04/09/19 10/29/19 History Meclizine [Antivert] 12.5 mg PO TID #0 10/24/19 10/29/19 Rx Ipratropium-Albuterol Nebulize 3 ml INHALATION RT-TID 10/29/19 10/29/19 History [Duoneb 0.5 mg-3 mg/3 ml Soln] Vitamin D3 50,000iu 50,000 unit PO Q7D 10/29/19 10/29/19 History predniSONE See Taper PO DAILY 10/29/19 10/29/19 History Allergies Allergy/AdvReac Type Severity Reaction Status Date / Time warfarin [From Coumadin] AdvReac Unknown Verified 10/29/19 23:28 Surgical - Exam Vital Signs Temp Pulse Resp BP Pulse Ox 97.9 F 122 H 16 149/80 94 L 10/29/19 22:27 10/29/19 22:27 10/29/19 22:27 10/29/19 22:27 10/29/19 22:27 Physical exam: General: Well-developed, well-nourished HEENT: Normocephalic, sclerae nonicteric Abdomen: Nontender, nondistended Extremities: Mild edema Neuro: Alert and mildly confused Rectal: Some induration but no definite palpable masses Results - Labs 10/30/19 08:53 10/30/19 08:53 Abnormal Lab Results - Last 24 Hours (Table) 10/29/19 10/29/19 10/29/19 Range/Units 22:49 22:49 22:49 WBC (3.8-10.6) k/uL RBC (4.30-5.90) m/uL Hgb 12.4 L (13.0-17.5) gm/dL Hct (39.0-53.0) % RDW 15.8 H (11.5-15.5) % Neutrophils # 8.4 H (1.3-7.7) k/uL Chloride (98-107) mmol/L BUN 32 H (9-20) mg/dL Creatinine 1.49 H (0.66-1.25) mg/dL Glucose 143 H (74-99) mg/dL POC Glucose (mg/dL) (75-99) mg/dL Total Protein 6.2 L (6.3-8.2) g/dL Crossmatch See Detail 10/30/19 10/30/19 10/30/19 Range/Units 03:17 08:53 08:53 WBC 12.5 H (3.8-10.6) k/uL RBC 4.23 L (4.30-5.90) m/uL Hgb 12.6 L (13.0-17.5) gm/dL Hct 38.9 L (39.0-53.0) % RDW (11.5-15.5) % Neutrophils # 9.8 H (1.3-7.7) k/uL Chloride 111 H (98-107) mmol/L BUN 29 H (9-20) mg/dL Creatinine (0.66-1.25) mg/dL Glucose 112 H (74-99) mg/dL POC Glucose (mg/dL) 139 H (75-99) mg/dL Total Protein (6.3-8.2) g/dL Crossmatch Diabetes panel 10/29/19 10/30/19 Range/Units 22:49 08:53 Sodium 140 141 (137-145) mmol/L Potassium 4.2 4.5 (3.5-5.1) mmol/L Chloride 106 111 H (98-107) mmol/L Carbon Dioxide 27 26 (22-30) mmol/L BUN 32 H 29 H (9-20) mg/dL Creatinine 1.49 H 1.24 (0.66-1.25) mg/dL Glucose 143 H 112 H (74-99) mg/dL Calcium 9.8 9.0 (8.4-10.2) mg/dL AST 33 (17-59) U/L ALT 40 (4-49) U/L Alkaline Phosphatase 96 (38-126) U/L Total Protein 6.2 L (6.3-8.2) g/dL Albumin 3.8 (3.5-5.0) g/dL Calcium panel 10/29/19 10/30/19 Range/Units 22:49 08:53 Calcium 9.8 9.0 (8.4-10.2) mg/dL Albumin 3.8 (3.5-5.0) g/dL Pituitary panel 10/29/19 10/30/19 Range/Units 22:49 08:53 Sodium 140 141 (137-145) mmol/L Potassium 4.2 4.5 (3.5-5.1) mmol/L Chloride 106 111 H (98-107) mmol/L Carbon Dioxide 27 26 (22-30) mmol/L BUN 32 H 29 H (9-20) mg/dL Creatinine 1.49 H 1.24 (0.66-1.25) mg/dL Glucose 143 H 112 H (74-99) mg/dL Calcium 9.8 9.0 (8.4-10.2) mg/dL Adrenal panel 10/29/19 10/30/19 Range/Units 22:49 08:53 Sodium 140 141 (137-145) mmol/L Potassium 4.2 4.5 (3.5-5.1) mmol/L Chloride 106 111 H (98-107) mmol/L Carbon Dioxide 27 26 (22-30) mmol/L BUN 32 H 29 H (9-20) mg/dL Creatinine 1.49 H 1.24 (0.66-1.25) mg/dL Glucose 143 H 112 H (74-99) mg/dL Calcium 9.8 9.0 (8.4-10.2) mg/dL Total Bilirubin 0.6 (0.2-1.3) mg/dL AST 33 (17-59) U/L ALT 40 (4-49) U/L Alkaline Phosphatase 96 (38-126) U/L Total Protein 6.2 L (6.3-8.2) g/dL Albumin 3.8 (3.5-5.0) g/dL Assessment and Plan (1) Lower GI bleed Narrative/Plan: 89-year-old male with lower GI bleed. History of previous rectal cancer. Will start bowel cleanse today. Plans for colonoscopy tomorrow. Will check CEA level. Follow hemoglobin. Current Visit: Yes Status: Acute Code(s): K92.2 - GASTROINTESTINAL HEMORRHAGE, UNSPECIFIED SNOMED Code(s): 48869471
[2019-10-30] MEDS ORDERED: PEG 3350-NA SULF,BICARB,CL/KCL 4,000 ML BOTTLE PO ONE (11:00)
[2019-10-30] MEDS: IPRATROPIUM-ALBUTEROL 3 ML NEB INHALATION SCH ×3 (11:40→20:02)
--- NOTE | 2019-10-30 12:23 | CONS ---
CONSULTATION PULMONARY/CRITICAL CARE CONSULTATION: DATE OF SERVICE: October 30, 2019 REASON FOR CONSULTATION: ICU management and GI bleeding. HISTORY OF PRESENT ILLNESS: This is an 89-year-old male who apparently presents to the emergency room on October 28 at 2222 hours normal with complaints of rectal bleeding. It began about 8:00 pm the same day he was admitted. He denied any associated pain. Apparently it was quite bloody and very red according to the ER physician who I talked to this morning. Because of that reason, he was admitted to the ICU. The patient's blood pressure there in the emergency room was stable. His respiratory status was also stable. Since he has been here, the patient has received 2 units of PRBCs. He is getting O2 at 2 L. He is getting saline at 20 mL an hour. He was recently seen by Dr. Bryant and is scheduled for colonoscopy tomorrow on October 30. According to Dr. Bryant, he is suspected to have a lower GI bleed. He apparently does have a prior history of rectal or colon cancer resected maybe [address] Monsalve. He also suffers from thoracic and abdominal aortic aneurysm with stenting at [facility], previous history of GI bleed, and a multitude of other medical issues. The patient is feeling reasonably well today. The patient has had some additional bleeding according to the nurse. He denies any respiratory issues. Denies any chest pain or chest discomfort. There is no fever or chills. Not coughing, producing any phlegm. His medications include Xanax, Abilify, Ecotrin, Lipitor, Cymbalta, digoxin, Lomotil, Lasix, Synthroid, Namenda, metoprolol, Remeron, sublingual nitroglycerin, Flonase nasal spray, omeprazole, Flomax, DuoNeb, vitamin D3, and prednisone with a taper. The patient also is on meclizine hydrochloride. ALLERGIES: Include warfarin. PAST MEDICAL HISTORY: Positive for angina, COPD, dementia, hyperlipidemia, hypertension, myocardial infarction, and chronic kidney disease. He has also had a history of thoracic and abdominal aneurysm, status post stents and a history of colon cancer with remote resection. SURGICAL HISTORY: Includes colon surgery, heart catheterization with stent, aneurysm repair, as well as some other minor procedures. SOCIAL HISTORY: Positive for previous heavy tobacco use. Does not smoke currently. Denies any alcohol use or illicit drug use. FAMILY HISTORY: Positive for a father who was an alcoholic and a mother who of myocardial infarction. REVIEW OF SYSTEMS: CONSTITUTIONAL: Mild weakness. NEUROLOGIC negative. HEENT negative. CARDIOVASCULAR negative. PULMONARY negative. GI rectal bleeding, bright red blood. negative. RHEUMATOLOGIC negative. IMMUNOLOGIC negative. ENDOCRINOLOGIC negative. DERMATOLOGIC negative. PHYSICAL EXAMINATION: VITAL SIGNS: Current vital signs are reviewed. His temperature is 97.7. Heart rate 50, respiratory rate 18, blood pressure 169/94, mean 119. 2 L saturation 97 to 98%. Appears in no acute distress. HEENT examination is grossly unremarkable. Mucous membranes are moist. Nasal O2 noted. NECK: Supple. Full range of motion. No adenopathy, thyromegaly or neck vein distention. CARDIOVASCULAR: Examination reveals regular rhythm rate. Heart rate is about 60 beats per minute. S1, S2 normal. No S3, S4, or murmur. LUNGS: Reveal clear breath sounds. No wheezes, rhonchi, or crackles. ABDOMEN: Soft. There is no abdominal pain. There is no mass in the abdomen. There is no tenderness. EXTREMITIES are intact. No cyanosis, clubbing, or edema. SKIN: Without rash. NEUROLOGIC: Examination is brief but nonfocal. As I mentioned, he is on O2 at 2 L. He is getting saline at 20 mL an hour. LABS: Reviewed. White count 12.5, hemoglobin 12.6, hematocrit 38.9, platelet count 258,000. PT/INR normal. PTT is normal. Sodium 141, potassium 4.5, chloride 111, CO2 26, anion gap 4. BUN and creatinine were 29 and 1.24. Microbiology is pending or negative. Chest x-ray done. It shows mild interstitial fibrotic changes. There is no evidence of any pleural effusion. Abdominal and pelvic CT scan show slight increased soft tissue density at the rectosigmoid junction that measures 4 cm on ultrasound and now measures 5 cm. This could be consistent with recurrent tumor. There is an incarcerated left inguinal hernia containing loops of bowel that is a change from prior examinations. There is also partial obstruction at the level of the hernia or at the rectum, which should be considered. The rest of the findings are noted. Medications are reviewed. ASSESSMENT: 1. Suspected lower gastrointestinal bleed and possible recurrence of colon cancer. 2. History of angina. 3. History of chronic obstructive pulmonary disease from prior tobacco use. 4. Hyperlipidemia by history. 5. History of hypertension. 6. Prior history of myocardial infarction. 7. History of chronic kidney disease. 8. Prior history of colon resection 23 years ago. 9. Thoracic and abdominal aortic aneurysm, with intravascular stenting at [facility]. PLAN: Currently, the patient is resting comfortably. He is getting prepped for colonoscopy tomorrow with Dr. Bryant. He is hemodynamic stable. He has received 2 units of PRBCs. He is getting nasal O2 2 L. His saline IV is running at 20 mL an hour. We will continue to follow. Prognosis is guarded. MMODL / IJN: [id number] /
[2019-10-30 14:59] LABS: Basophils # (A) 0.1 k/uL (0-0.2); Basophils % (A) 0 %; Eosinophils # (A) 0.5 k/uL (0-0.7); Eosinophils % (A) 4 %; HCT 36.3 % (39.0-53.0); HGB 11.9 gm/dL (13.0-17.5); Hypochromasia Moderate; Lymphocytes # (A) 1.4 k/uL (1.0-4.8); Lymphocytes % (A) 12 %; MCHC 32.7 g/dL (31.0-37.0); MCV 91.9 fL (80.0-100.0); Mean Platelet Volume 7.9; Monocytes # (A) 0.9 k/uL (0-1.0); Monocytes % (A) 7 %; Neutrophils # (A) 9.5 k/uL (1.3-7.7); Neutrophils % (A) 76 %; Platelet Count 149 k/uL (150-450); RBC 3.96 m/uL (4.30-5.90); RDW 15.4 % (11.5-15.5); WBC 12.5 k/uL (3.8-10.6)
--- NOTE | 2019-10-30 15:39 | P.HPIM ---
History of Present Illness H&P Date: 10/30/19 Chief Complaint: No GI bleeding History of present complaint: This is a very pleasant 89-year-old patient of Dr. price . Chronic stable medical conditions include COPD, BPH, hypothyroid hypertension, hyperlipidemia, coronary artery disease, mild cognitive impairment, coronary artery disease with prior stent, chronic kidney disease stage III.. Has a long-standing history of chronic dizziness. Supposed to follow with ENT Dr. Santana as an outpatient. Patient is here in the hospital exactly week ago with pneumonia. Was discharged on 3 days course of Ceftin. Patient now presents to the ER for episodes of intermittent rectal bleeding. Fresh blood with blood clots. No abdominal pain. Feels tired rundown. Admitted to the ICU. No fever no chills. Review of systems: GEN.: Tired EYES: None HEENT: Hard of hearing NECK: None RESPIRATORY: None CARDIOVASCULAR: None GASTROINTESTINAL: As above GENITOURINARY: None MUSCULOSKELETAL: Pain in the joints LYMPHATICS: None HEMATOLOGICAL: None PSYCHIATRY: None NEUROLOGICAL: Chronic dizziness, uses a walker Past medical history to include: COPD, BPH, hypothyroid hypertension, hyperlipidemia, coronary artery disease, mild cognitive impairment, coronary artery disease with prior stent, chronic kidney disease stage III.. Has a long-standing history of chronic dizziness. Social history: -Smoked for 55 years stopped about 20 years ago. . Does use a walker. Did work in the [employer]. 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 Physical examination: VITAL SIGNS: 97.9, 51, 16, 159/82, 97% on 2 L-on presentation GENERAL: BMI 27.3, laying in bed, awake EYES: Pupils equal. Conjunctiva pale HEENT: External appearance of nose and ears normal, oral cavity grossly normal. Decreased hearing NECK: JVD not raised; masses not palpable. HEART: First and second heart sounds are normal; no edema. LUNGS: Respiratory rate normal, diminished breath sounds ABDOMEN: Soft, nontender, liver spleen not palpable, no masses palpable. PSYCH: Able to answer questions sometimes slowly. NEUROLOGICAL: Cranial nerves grossly intact; no facial asymmetry, power and sensation grossly intact. Investigations: White count 10.6. Troponin 12.4 potassium 4.2 bun 32 creatinine 1.49 Computed tomography scan of the abdomen-increased soft tissue density at the rectosigmoid junction about 5 cm, incarcerated left inguinal hernia with a loop of bowel, and results thoracic and abdominal aorta with a stent, broad-based umbilical hernia without incarceration Previous testing: Lab work on October 23 showed bun of 22 creatinine 1.51 hemoglobin of 11.8 on October 21 Assessment: -Acute lower GI fresh bleeding with blood clots. No abdominal pain. No fever no chills. Prior history of rectal cancer consider recurrence -COPD in an ex-smoker -Mild cognitive impairment from underlying dementia -Hyperlipidemia -Essential hypertension -Coronary artery disease with prior history of stent -Chronic kidney disease stage III from nephrosclerosis -BPH -Hypothyroid -Broad-based umbilical hernia Plan: Home medications are continued. Patient aspirin has been held. Hold of Lasix. Gentle hydration. Consultation to Dr. Bryant from general surgery, Dr. Montgomery quality officer. Patient is getting bowel preparation with colonoscope tomorrow. Follow H&H. Past Medical History Past Medical History: Chest Pain / Angina, COPD, Dementia, Hyperlipidemia, Hypertension, Myocardial Infarction ([place]), Renal Disease Additional Past Medical History / Comment(s): aneurysm, colon cancer Last Myocardial Infarction Date:: unknown History of Any Multi-Drug Resistant Organisms: None Reported Past Surgical History: Heart Catheterization With Stent, Pacemaker Additional Past Surgical History / Comment(s): aneurysm repair to heart and abd about 3 years ago. Pacemaker placed 20 years ago. Past Anesthesia/Blood Transfusion Reactions: No Reported Reaction Date of Last Stent Placement:: unknown Type of Cardiac Device: Permanent Pacemaker Device Placement Date:: unknown Past Psychological History: Depression Smoking Status: Never smoker Past Alcohol Use History: None Reported Past Drug Use History: None Reported - Past Family History Father Additional Family Medical History / Comment(s): alcoholic Mother Additional Family Medical History / Comment(s): anerysm, of [place] Medications and Allergies Home Medications Medication Instructions Recorded Confirmed Type ALPRAZolam [Xanax] 0.5 mg PO BID PRN 01/21/17 10/29/19 History ARIPiprazole [Abilify] 2 mg PO HS 01/21/17 10/29/19 History Aspirin EC [Ecotrin Low Dose] 81 mg PO DAILY 01/21/17 10/29/19 History Atorvastatin [Lipitor] 40 mg PO DAILY 01/21/17 10/29/19 History DULoxetine HCL [Cymbalta] 30 mg PO DAILY 01/21/17 10/29/19 History Digoxin [Lanoxin] 125 mcg PO DAILY 01/21/17 10/29/19 History Diphenox-Atrop 2.5-0.025 mg 2 tab PO QID PRN 01/21/17 10/29/19 History [Lomotil] Furosemide [Lasix] 40 mg PO DAILY 01/21/17 10/29/19 History Levothyroxine Sodium [Synthroid] 125 mcg PO DAILY 01/21/17 10/29/19 History Memantine [Namenda] 10 mg PO AC-BID 01/21/17 10/29/19 History Metoprolol Succinate (ER) [Toprol 25 mg PO BID 01/21/17 10/29/19 History XL] Mirtazapine [Remeron] 30 mg PO HS 01/21/17 10/29/19 History Nitroglycerin Sl Tabs [Nitrostat] 0.4 mg SUBLINGUAL Q5M PRN 01/21/17 10/29/19 History Fluticasone Nasal [place] [Flonase 1 spr EA NOSTRIL DAILY 04/09/19 10/29/19 History Nasal [place]] Omeprazole 20 mg PO DAILY 04/09/19 10/29/19 History Tamsulosin [Flomax] 0.4 mg PO DAILY 04/09/19 10/29/19 History Meclizine [Antivert] 12.5 mg PO TID #0 10/24/19 10/29/19 Rx Ipratropium-Albuterol Nebulize 3 ml INHALATION RT-TID 10/29/19 10/29/19 History [Duoneb 0.5 mg-3 mg/3 ml Soln] Vitamin D3 50,000iu 50,000 unit PO Q7D 10/29/19 10/29/19 History predniSONE See Taper PO DAILY 10/29/19 10/29/19 History Allergies Allergy/AdvReac Type Severity Reaction Status Date / Time warfarin [From Coumadin] AdvReac Unknown Verified 10/29/19 23:28 Physical Exam Vitals: Vital Signs Temp Pulse Resp BP Pulse Ox 10/30/19 11:00 50 L 15 169/94 96 10/30/19 10:30 50 L 18 158/82 97 10/30/19 10:00 50 L 15 168/90 98 10/30/19 09:30 52 L 12 157/84 98 10/30/19 09:00 50 L 20 173/86 97 10/30/19 08:30 52 L 22 159/96 96 10/30/19 08:00 97.7 F 59 L 17 162/85 95 10/30/19 07:30 50 L 20 166/90 97 10/30/19 07:09 97.4 F L 50 L 166/90 10/30/19 07:00 12 161/81 96 10/30/19 06:30 50 L 15 167/83 97 10/30/19 06:00 50 L 17 164/83 97 10/30/19 05:30 64 18 170/91 97 10/30/19 05:16 97.7 F 57 L 13 164/83 10/30/19 05:00 50 L 13 181/96 96 10/30/19 04:46 97.5 F L 50 L 170/91 10/30/19 04:36 97.5 F L 50 L 16 181/96 10/30/19 04:30 61 18 165/101 96 10/30/19 04:20 97.7 F 50 L 9 L 165/101 97 10/30/19 04:00 50 L 20 167/94 97 10/30/19 03:30 97.7 F 10 L 168/106 95 10/30/19 03:00 56 L 154/81 10/30/19 02:39 97.5 F L 50 L 16 150/83 98 10/30/19 02:30 50 L 97 10/30/19 02:09 97.4 F L 56 L 16 148/77 98 10/30/19 02:00 54 L 97 10/30/19 01:55 97.4 F L 50 L 16 143/82 96 10/30/19 01:30 49 L 96 10/30/19 01:00 50 L 136/78 97 10/30/19 00:55 50 L 144/78 97 10/30/19 00:50 50 L 151/78 96 10/30/19 00:45 50 L 149/83 97 10/30/19 00:40 52 L 148/75 97 10/30/19 00:35 50 L 155/78 97 10/30/19 00:30 52 L 145/82 99 10/30/19 00:25 50 L 151/79 98 10/30/19 00:20 49 L 148/78 96 10/30/19 00:15 50 L 150/77 97 10/30/19 00:10 49 L 156/82 96 10/30/19 00:05 53 L 158/81 97 10/30/19 00:00 52 L 150/83 97 10/29/19 23:55 50 L 144/82 97 10/29/19 23:50 51 L 126/82 95 10/29/19 23:45 51 L 16 126/81 96 10/29/19 23:35 157/85 10/29/19 23:25 50 L 18 162/79 98 10/29/19 23:20 50 L 18 142/89 97 10/29/19 23:15 18 145/76 97 10/29/19 23:10 54 L 18 138/107 98 10/29/19 23:05 138/107 96 10/29/19 23:00 159/82 97 10/29/19 22:55 50 L 159/82 98 10/29/19 22:50 159/82 96 10/29/19 22:45 52 L 93 L 10/29/19 22:43 51 L 16 159/82 97 10/29/19 22:27 97.9 F 122 H 16 149/80 94 L Intake and Output 10/29/19 10/30/19 10/30/19 22:59 06:59 14:59 Intake Total 700 410 Output Total 600 475 Balance 100 -65 Intake: IV 80 100 Sodium Chloride 0.9% 1, 80 100 000 ml @ 20 mls/hr IV . Q24H [facility] Rx#:[id number] Blood Product 620 310 Rc As-1 Unit 310 [id number] Rc As-1 Unit 0 310 [id number] Output: Urine 600 475 Other: Voiding Method Indwelling Catheter Indwelling Catheter # Bowel Movements 2 2 # [place] 1 Weight 86.183 kg 86.183 kg Results CBC & Chem 7: 10/30/19 14:11 10/30/19 08:53 Labs: Abnormal Lab Results - Last 24 Hours (Table) 10/29/19 10/29/19 10/29/19 Range/Units 22:49 22:49 22:49 WBC (3.8-10.6) k/uL RBC (4.30-5.90) m/uL Hgb 12.4 L (13.0-17.5) gm/dL Hct (39.0-53.0) % RDW 15.8 H (11.5-15.5) % Neutrophils # 8.4 H (1.3-7.7) k/uL Chloride (98-107) mmol/L BUN 32 H (9-20) mg/dL Creatinine 1.49 H (0.66-1.25) mg/dL Glucose 143 H (74-99) mg/dL POC Glucose (mg/dL) (75-99) mg/dL Total Protein 6.2 L (6.3-8.2) g/dL Crossmatch See Detail 10/30/19 10/30/19 10/30/19 Range/Units 03:17 08:53 08:53 WBC 12.5 H (3.8-10.6) k/uL RBC 4.23 L (4.30-5.90) m/uL Hgb 12.6 L (13.0-17.5) gm/dL Hct 38.9 L (39.0-53.0) % RDW (11.5-15.5) % Neutrophils # 9.8 H (1.3-7.7) k/uL Chloride 111 H (98-107) mmol/L BUN 29 H (9-20) mg/dL Creatinine (0.66-1.25) mg/dL Glucose 112 H (74-99) mg/dL POC Glucose (mg/dL) 139 H (75-99) mg/dL Total Protein (6.3-8.2) g/dL Crossmatch Thrombosis Risk Factor Assmnt - Choose All That Apply Any of the Below Risk Factors Present?: Yes Each Factor Represents 1 point: Abnormal pulmonary function (COPD), Medical pt on bed rest, Serious lung disease incl. pneumonia (< 1month) Other Risk Factors: Yes Each Risk Factor Represents 3 Points: Age 75 years or older Other congenital or acquired thrombophilia - If yes, enter type in comment: No Thrombosis Risk Factor Assessment Total Risk Factor Score: 6 Thrombosis Risk Factor Assessment Level: High Risk
[2019-10-30] MEDS: MIRTAZAPINE 15 MG TAB PO SCH (20:40)
[2019-10-30] MEDS: ARIPiprazole 2 MG TAB PO SCH (20:40)
[2019-10-31] MEDS: ONDANSETRON 4 MG/2 ML VIAL IVP PRN (00:08)
[2019-10-31 00:39] LABS: Basophils # (A) 0.1 k/uL (0-0.2); Basophils % (A) 1 %; Eosinophils # (A) 0.5 k/uL (0-0.7); Eosinophils % (A) 4 %; HCT 35.2 % (39.0-53.0); HGB 11.3 gm/dL (13.0-17.5); Hypochromasia Slight; Lymphocytes # (A) 1.5 k/uL (1.0-4.8); Lymphocytes % (A) 12 %; MCH 28.8 pg (25.0-35.0); Mean Platelet Volume 7.7; Monocytes # (A) 0.7 k/uL (0-1.0); Monocytes % (A) 6 %; Neutrophils # (A) 9.5 k/uL (1.3-7.7); Neutrophils % (A) 77 %; Platelet Count 166 k/uL (150-450); RBC 3.91 m/uL (4.30-5.90); RDW 15.6 % (11.5-15.5); WBC 12.4 k/uL (3.8-10.6)
[2019-10-31] MEDS: SODIUM CHLORIDE 0.9% 1,000 ML IV SCH (03:46)
[2019-10-31 04:44] LABS: Basophils % (A) 0 %; Eosinophils # (A) 0.4 k/uL (0-0.7); Eosinophils % (A) 4 %; HCT 33.7 % (39.0-53.0); HGB 10.9 gm/dL (13.0-17.5); Hypochromasia Moderate; Lymphocytes # (A) 1.2 k/uL (1.0-4.8); Lymphocytes % (A) 10 %; MCH 29.8 pg (25.0-35.0); MCHC 32.4 g/dL (31.0-37.0); MCV 91.9 fL (80.0-100.0); Mean Platelet Volume 7.6; Monocytes # (A) 0.7 k/uL (0-1.0); Monocytes % (A) 6 %; Neutrophils % (A) 79 %; Platelet Count 158 k/uL (150-450); RBC 3.67 m/uL (4.30-5.90); RDW 15.3 % (11.5-15.5); WBC 11.4 k/uL (3.8-10.6)
[2019-10-31 05:59] LABS: Albumin 2.9 g/dL (3.5-5.0); Calcium 8.6 mg/dL (8.4-10.2); Potassium 4.1 mmol/L (3.5-5.1); Total Bilirubin 1.1 mg/dL (0.2-1.3); Total Protein 5.1 g/dL (6.3-8.2)
[2019-10-31] MEDS: LEVOTHYROXINE 125 MCG TAB PO SCH (07:31)
[2019-10-31] MEDS: IPRATROPIUM-ALBUTEROL 3 ML NEB INHALATION SCH ×4 (07:47→20:32)
[2019-10-31] MEDS: PANTOPRAZOLE 40 MG/10 ML VIAL IV SCH (08:19)
[2019-10-31] MEDS: DIGOXIN 125 MCG TAB PO SCH (08:20)
[2019-10-31] MEDS: METOPROLOL SUCCINATE (ER) 25 MG TAB.ER.24H PO SCH ×2 (08:20→20:06)
[2019-10-31] MEDS ORDERED: PROPOFOL 10 MG/ML 20 ML VIAL IV ONE (09:36)
[2019-10-31] MEDS ORDERED: LIDOCAINE 1% INJ 10MG/ML (20 ML MDV) ONE (09:36)
[2019-10-31] MEDS ORDERED: GLYCOPYRROLATE 0.2 MG/ML 2 ML VIAL ONE (09:36)
[2019-10-31] MEDS ORDERED: IV FLUID CONTINUATION 1,000 ML IV ONE ×2 (09:41)
--- NOTE | 2019-10-31 10:06 | P.PCN ---
Date of Procedure: 10/31/19 Procedure(s) Performed: PREOPERATIVE DIAGNOSIS: Rectal bleeding POSTOPERATIVE DIAGNOSIS: Rectal stricture, diverticulosis, descending colon polyp PROCEDURE: Colonoscopy with biopsy and snare polypectomy ANESTHESIA: MAC SURGEON: Fercho Bryant M.D. SPECIMENS: Descending colon polyp, rectal stricture ENDOSCOPIC PROCEDURE: The patient was placed on the endoscopy table in the left decubitus position. The Olympus colonoscope was inserted into the anus and passed under direct visualization to the base of the cecum. The appendiceal orifice was visualized. From that point the scope was slowly withdrawn inspecting all surfaces carefully. There were no neoplastic inflammatory or polypoid lesions throughout the cecum, ascending, and transverse colon. In the descending colon at about 30 cm a polyp was seen and removed using the snare with cautery technique. This measured approximately 6-7 mm in diameter. Upon insertion of the scope into the anus we identified an area of stricture in the mid rectum from the previous anastomosis. This was consistent with what was seen on CAT scan. The pediatric colonoscope was able to traverse the stricture after gentle pressure. As we were withdrawing the scope there was a small amount of blood there and the mucosa had a small area of excoriation. Biopsies were taken of that. The stricture prior to passing through that area revealed relatively smooth-walled mucosa without barbara evidence of malignancy. The patient did have some mild left-sided diverticulosis as well without bleeding. It should be noted that there was no blood within the colon until we passed through that strictured area and created some scope trauma. Then there was some oozing there. No significant hemorrhoidal disease. No gross proctitis from previous radiation noted. The patient was taken to the recovery room in stable condition per anesthesia guidelines. RECOMMENDATIONS: Await biopsy results. Resume diet. We'll consult oncology to evaluate given recent CAT scan findings of thickening at the anastomotic site. Questionable whether PET scan will be helpful in this case.
[2019-10-31] MEDS: MEMANTINE 10 MG TAB PO SCH ×2 (10:25→16:42)
[2019-10-31] MEDS: ATORVASTATIN 40 MG TAB PO SCH (10:25)
[2019-10-31] MEDS: DULoxetine HCL 30 MG CAPSULE.DR PO SCH (10:25)
[2019-10-31] MEDS: MECLIZINE 12.5 MG TAB PO SCH ×3 (10:25→21:14)
[2019-10-31] MEDS: TAMSULOSIN 0.4 MG CAP.ER.24H PO SCH (10:25)
[2019-10-31] MEDS: FLUTICASONE 50MCG/SPRAY NASAL 16GM EA NOSTRIL SCH ×2 (10:27→10:32)
[2019-10-31 11:07] LABS: Basophils % (A) 0 %; Eosinophils # (A) 0.4 k/uL (0-0.7); Eosinophils % (A) 4 %; HCT 34.3 % (39.0-53.0); HGB 11.3 gm/dL (13.0-17.5); Hypochromasia Moderate; Lymphocytes # (A) 1.2 k/uL (1.0-4.8); Lymphocytes % (A) 12 %; MCH 29.9 pg (25.0-35.0); MCHC 32.9 g/dL (31.0-37.0); MCV 91.1 fL (80.0-100.0); Mean Platelet Volume 7.7; Monocytes # (A) 0.6 k/uL (0-1.0); Monocytes % (A) 6 %; Neutrophils # (A) 7.7 k/uL (1.3-7.7); Neutrophils % (A) 78 %; Platelet Count 164 k/uL (150-450); RBC 3.76 m/uL (4.30-5.90); RDW 15.4 % (11.5-15.5)
--- NOTE | 2019-10-31 12:32 | P.PN ---
Subjective Progress Note Date: 10/31/19 This is an 89-year-old male patient was being seen in follow-up in intensive care unit for GI bleed. Note that the patient was Hospital as for a lower GI bleed and overnight he continued to have low-grade was from his rectal area. He underwent a bowel prep and the plan is to proceed with a colonoscopy today by Dr. Fercho Fernandez. The patient has no hematemesis. No nausea or vomiting. No abdominal pain. He has a remote history of cancer that was resected by one of our thyroid surgeons 23 years ago. He has a lower abdominal scar along with a umbilical hernia. He also has an abdominal aortic aneurysm for which is undergone endovascular stent grafting. He is currently nothing by mouth. His comorbidities include COPD, dementia, hyperlipidemia, hypertension, CAD, previous ID, stage III chronic kidney disease. The patient has no specific complaints otherwise for now. He was seen by vascular surgery regarding the abdominal aortic aneurysm. He denies having any abdominal pain. His pulses in lower extremities are equal and symmetrical. The plan is to have a CT angiogram at a later stage once the renal function stabilizes. No emergency regarding this study at this point in time. Objective - Vital Signs Vital signs: Vital Signs Temp 97.8 F 10/31/19 08:00 Pulse 49 L 10/31/19 11:00 Resp 16 10/31/19 11:00 BP 157/84 10/31/19 11:00 Pulse Ox 98 10/31/19 11:00 Intake & Output 10/30/19 10/31/19 10/31/19 18:59 06:59 18:59 Intake Total 1050 1440 280 Output Total 1974 1015 280 Balance -925 425 0 Weight 86.7 kg Intake: IV 240 240 280 Sodium Chloride 0.9% 1, 240 240 80 000 ml @ 20 mls/hr IV . Q24H [facility] Rx#:[id number] Oral 500 1200 Blood Product 310 Rc As-1 Unit 310 [id number] Output: Urine 1974 1015 280 Other: Voiding Method Indwelling Catheter Indwelling Catheter Indwelling Catheter # Bowel Movements 1 2 - Exam The patient appeared well nourished and normally developed. Vital signs as documented. Head exam is unremarkable. No scleral icterus or corneal arcus noted. Neck is without jugular venous distension, thyromegaly, or carotid bruits. Carotid upstrokes are brisk bilaterally. Lungs are clear to auscultation and percussion. Cardiac exam reveals the PMI to be normally sized and situated. Rhythm is regular. First and second heart sounds normal. No murmurs, rubs or gallops. Abdominal exam reveals normal bowel sounds, no masses, no organomegaly and no aortic enlargement. There is a scar in the mid abdomen along with an umbilical hernia which is easily reducible. No direct tenderness. No rebound tenderness. No guarding. Extremities are nonedematous and both femoral and pedal pulses are normal.Examination of the skin revealed no evidence of significant rashes, suspicious appearing nevi or other concerning lesions. - Labs CBC & Chem 7: 10/31/19 10:42 10/31/19 04:17 Labs: Abnormal Lab Results - Last 24 Hours (Table) 10/30/19 10/31/19 10/31/19 Range/Units 14:11 00:18 04:17 WBC 12.5 H 12.4 H (3.8-10.6) k/uL RBC 3.96 L 3.91 L (4.30-5.90) m/uL Hgb 11.9 L 11.3 L (13.0-17.5) gm/dL Hct 36.3 L 35.2 L (39.0-53.0) % RDW 15.6 H (11.5-15.5) % Plt Count 149 L (150-450) k/uL Neutrophils # 9.5 H 9.5 H (1.3-7.7) k/uL BUN 25 H (9-20) mg/dL Total Protein 5.1 L (6.3-8.2) g/dL Albumin 2.9 L (3.5-5.0) g/dL 10/31/19 10/31/19 Range/Units 04:17 10:42 WBC 11.4 H (3.8-10.6) k/uL RBC 3.67 L 3.76 L (4.30-5.90) m/uL Hgb 10.9 L 11.3 L (13.0-17.5) gm/dL Hct 33.7 L 34.3 L (39.0-53.0) % RDW (11.5-15.5) % Plt Count (150-450) k/uL Neutrophils # 9.0 H (1.3-7.7) k/uL BUN (9-20) mg/dL Total Protein (6.3-8.2) g/dL Albumin (3.5-5.0) g/dL Assessment and Plan Plan: 1 acute lower GI bleeding currently under investigation. The patient appears history of rectal cancer resected 23 years ago. Consider gastrointestinal malignancy based on overall presentation. Nevertheless, the patient is hemodynamically stable and hemoglobin is stable for now. General surgeries on the case. There is a slight increase in soft tissue density at the rectosigmoid colon/junction that was measuring 5 cm in size. She'll recurrence within that area needs to be considered. 2 history of rectal cancer, resected surgically many years back 3 blood loss anemia and hemoglobin is stable for now and the patient did not require a blood transfusion. Hemoglobin is at 11.3. 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 11 AAA status post endovascular stent grafting 12 umbilical hernia 13 left inguinal hernia 14 history of pacemaker insertion current rhythm is paced Plan Keep the patient nothing by mouth for now No anticoagulants IV fluids with normal saline at the rate of 50 mL an hour Home medications have been resumed Bowel cleansing has been done Proceed with colonoscopy today We'll continue to follow.
[2019-10-31 12:59] LABS: Carcinoembryonic Antigen 2.2 ng/mL (0.0-4.9)
[2019-10-31 13:20] LABS: Procalcitonin 0.06 ng/mL (0.02-0.09)
--- NOTE | 2019-10-31 13:32 | P.PN ---
Subjective This is a very pleasant 89-year-old patient of Dr. price . Chronic stable medical conditions include COPD, BPH, hypothyroid hypertension, hyperlipidemia, coronary artery disease, mild cognitive impairment, coronary artery disease with prior stent, chronic kidney disease stage III.. Has a long-standing history of chronic dizziness. Supposed to follow with ENT Dr. Santana as an outpatient. Patient is here in the hospital exactly week ago with pneumonia. Was discharged on 3 days course of Ceftin. Patient now presents to the ER for episodes of intermittent rectal bleeding. Fresh blood with blood clots. No abdominal pain. Feels tired rundown. Admitted to the ICU. No fever no chills. Subjective 10/31/2019 Patient is awake and alert, hysterectomy and diet with no abdominal pain. He had some large bloody bowel movement yesterday however his hemoglobin remained stable. Today he has more light brown stool. Vitals stable and is afebrile. WBC is back to normal at 10.0 K, hemoglobin stable at 11.3 and his BMP is unremarkable. He underwent colonoscopy this morning with Dr. Bryant: Descending polyp status post polypectomy, mid rectal stricture, no gross proctitis. Biopsy was taken and result is pending Surgery team recommended oncology consult CEA is 2.2, which is within reference range. pro-Calcitonin is negative at 0.06 Review of systems CONSTITUTIONAL: No fever, no malaise, no fatigue. HEENT: No recent visual problems or hearing problems. Denied any sore throat. CARDIOVASCULAR: No orthopnea, PND, no palpitations, no syncope. PULMONARY: No shortness of breath, no cough, no hemoptysis. GASTROINTESTINAL: No diarrhea, no nausea, no vomiting, no abdominal pain. Normoactive bowel sounds. NEUROLOGICAL: No headaches, no weakness, no numbness. HEMATOLOGICAL: Denies any bleeding or petechiae. GENITOURINARY: Denies any burning micturition, frequency, or urgency. MUSCULOSKELETAL/RHEUMATOLOGICAL: Denies any joint pain, swelling, or any muscle pain. ENDOCRINE: Denies any polyuria or polydipsia. Active Medications Generic Name Dose Route Start Last Admin Trade Name Freq PRN Reason Stop Dose Admin Acetaminophen 650 mg 10/30/19 02:25 Tylenol Tab PO Q4HR PRN Fever and/or Mild Pain Albuterol/Ipratropium 3 ml 10/30/19 12:00 10/31/19 11:50 Duoneb 0.5 Mg-3 Mg/3 Ml Soln INHALATION Not Given RT-QID [facility] Albuterol/Ipratropium 3 ml 10/30/19 09:59 Duoneb 0.5 Mg-3 Mg/3 Ml Soln INHALATION RT-TID PRN Shortness Of Breath Or Wheezing Alprazolam 0.5 mg 10/30/19 09:52 Xanax PO BID PRN Anxiety Aripiprazole 2 mg 10/30/19 21:00 10/30/19 20:40 Abilify PO 2 mg HS [facility] Administration Atorvastatin Calcium 40 mg 10/30/19 10:00 10/31/19 10:25 Lipitor PO 40 mg DAILY [facility] Administration Digoxin 125 mcg 10/30/19 10:00 10/31/19 08:20 Lanoxin PO 125 mcg DAILY [facility] Administration Duloxetine HCl 30 mg 10/30/19 10:00 10/31/19 10:25 Cymbalta PO 30 mg DAILY [facility] Administration Ergocalciferol 50,000 unit 10/30/19 10:00 10/30/19 10:19 Vitamin D2 PO 50,000 unit Q7D [facility] Administration Fluticasone Propionate 1 spray 10/30/19 10:00 10/31/19 10:32 Flonase Nasal Cucumber EA NOSTRIL Not Given DAILY [facility] Sodium Chloride 1,000 mls @ 20 mls/hr 10/30/19 02:30 10/31/19 03:46 Saline 0.9% IV 20 mls/hr .Q24H [facility] Administration Levothyroxine Sodium 125 mcg 10/30/19 10:00 10/31/19 07:31 Synthroid PO Not Given DAILY@0630 [facility] Meclizine HCl 12.5 mg 10/30/19 10:00 10/31/19 10:25 Antivert PO 12.5 mg TID [facility] Administration Memantine 10 mg 10/30/19 10:00 10/31/19 10:25 Namenda PO 10 mg AC-BID [facility] Administration Metoprolol Succinate 25 mg 10/30/19 10:00 10/31/19 08:20 Toprol Xl PO 25 mg BID [facility] Administration Mirtazapine 30 mg 10/30/19 21:00 10/30/19 20:40 Remeron PO 30 mg HS [facility] Administration Morphine Sulfate 2 mg 10/30/19 02:25 Morphine Sulfate (Inj) IV Q2HR PRN Pain Scale 4 to 5 Naloxone HCl 0.2 mg 10/30/19 02:25 Narcan IV Q2M PRN Opioid Reversal Nitroglycerin 0.4 mg 10/30/19 09:52 Nitrostat SUBLINGUAL Q5M PRN Chest Pain Ondansetron HCl 4 mg 10/30/19 03:09 10/31/19 00:08 Zofran IVP 4 mg Q8H PRN Administration Nausea Pantoprazole Sodium 40 mg 10/30/19 09:00 10/31/19 08:19 Protonix IV 40 mg DAILY [facility] Administration Tamsulosin HCl 0.4 mg 10/30/19 10:00 10/31/19 10:25 Flomax PO 0.4 mg DAILY [facility] Administration Objective - Vital Signs Vital signs: Vital Signs Temp 97.1 F L 10/31/19 12:00 Pulse 50 L 10/31/19 12:00 Resp 17 10/31/19 12:00 BP 160/86 10/31/19 12:00 Pulse Ox 98 10/31/19 12:00 Intake & Output 10/30/19 10/31/19 10/31/19 18:59 06:59 18:59 Intake Total 1050 1440 280 Output Total 1974 1015 280 Balance -925 425 0 Weight 86.7 kg Intake: IV 240 240 280 Sodium Chloride 0.9% 1, 240 240 80 000 ml @ 20 mls/hr IV . Q24H [facility] Rx#:[id number] Oral 500 1200 Blood Product 310 Rc As-1 Unit 310 [id number] Output: Urine 1974 1015 280 Other: Voiding Method Indwelling Catheter Indwelling Catheter Indwelling Catheter # Bowel Movements 1 2 - Exam GENERAL: The patient is alert and oriented x3, not in any acute distress. Well developed, well nourished. HEENT: Pupils are round and equally reacting to light. EOMI. No scleral icterus. No conjunctival pallor. Normocephalic, atraumatic. No pharyngeal erythema. No thyromegaly. CARDIOVASCULAR: S1 and S2 present. No murmurs, rubs, or gallops. PULMONARY: Chest is clear to auscultation, no wheezing or crackles. ABDOMEN: Soft, nontender, nondistended, normoactive bowel sounds. No palpable organomegaly. MUSCULOSKELETAL: No joint swelling or deformity. EXTREMITIES: No cyanosis, clubbing, or pedal edema. NEUROLOGICAL: Gross neurological examination did not reveal any focal deficits. SKIN: No rashes. No petechiae - Labs CBC & Chem 7: 10/31/19 10:42 10/31/19 04:17 Labs: Abnormal Lab Results - Last 24 Hours (Table) 10/30/19 10/31/19 10/31/19 Range/Units 14:11 00:18 04:17 WBC 12.5 H 12.4 H (3.8-10.6) k/uL RBC 3.96 L 3.91 L (4.30-5.90) m/uL Hgb 11.9 L 11.3 L (13.0-17.5) gm/dL Hct 36.3 L 35.2 L (39.0-53.0) % RDW 15.6 H (11.5-15.5) % Plt Count 149 L (150-450) k/uL Neutrophils # 9.5 H 9.5 H (1.3-7.7) k/uL BUN 25 H (9-20) mg/dL Total Protein 5.1 L (6.3-8.2) g/dL Albumin 2.9 L (3.5-5.0) g/dL 10/31/19 10/31/19 Range/Units 04:17 10:42 WBC 11.4 H (3.8-10.6) k/uL RBC 3.67 L 3.76 L (4.30-5.90) m/uL Hgb 10.9 L 11.3 L (13.0-17.5) gm/dL Hct 33.7 L 34.3 L (39.0-53.0) % RDW (11.5-15.5) % Plt Count (150-450) k/uL Neutrophils # 9.0 H (1.3-7.7) k/uL BUN (9-20) mg/dL Total Protein (6.3-8.2) g/dL Albumin (3.5-5.0) g/dL Assessment and Plan Assessment: -Acute lower GI fresh bleeding with blood clots. Status post colonoscopy, found rectal stricture and descending colon polyp status post polypectomy -Acute blood loss anemia -Prior history of rectal cancer consider recurrence -COPD in an ex-smoker -Mild cognitive impairment from underlying dementia -Hyperlipidemia -Essential hypertension -Coronary artery disease with prior history of stent -Chronic kidney disease stage III from nephrosclerosis -BPH -Hypothyroid -Broad-based umbilical hernia Plan: This is a pleasant 89 years old male who presents with GI bleed, status post colonoscopy which showed only polyp and rectal stricture. Surgery team is following the case closely as well as pulmonary/critical care team. Also consult oncology service per recommendation by surgery team Given his history of rectal cancer. Hold aspirin and Lasix Labs and medication were reviewed.. Continue same treatment. Continue with symptomatic treatment. Resume home medication. Monitor lytes and vitals. DVT and GI prophylaxis. Further recommendations of the clinical course of the patient DVT prophylaxis: Not Subcutaneous heparin and review of GI bleed GI Prophylaxis: Ppi
--- NOTE | 2019-10-31 14:22 | P.PN ---
Subjective Progress Note Date: 10/31/19 She is seen and examined in the ICU. Patient this morning had initially gone down for a colonoscopy with Dr. Bryant for a lower GI bleed. There was a rectal stricture and descending colon polyp, however no active bleeding or colon mass. The patient has falling to the left elbow, states he had fallen a few weeks ago. States he has been evaluated for this, and it is better. He is able to move the left upper extremity without any difficulty. Patient denies any shortness of breath, chest pain or back pain. Objective - Vital Signs Vital signs: Vital Signs Temp 97.1 F L 10/31/19 12:00 Pulse 50 L 10/31/19 12:00 Resp 17 10/31/19 12:00 BP 160/86 10/31/19 12:00 Pulse Ox 98 10/31/19 12:00 Intake & Output 10/30/19 10/31/19 10/31/19 18:59 06:59 18:59 Intake Total 1050 1440 280 Output Total 1974 1015 280 Balance -925 425 0 Weight 86.7 kg Intake: IV 240 240 280 Sodium Chloride 0.9% 1, 240 240 80 000 ml @ 20 mls/hr IV . Q24H [facility] Rx#:[id number] Oral 500 1200 Blood Product 310 Rc As-1 Unit 310 [id number] Output: Urine 1974 1015 280 Other: Voiding Method Indwelling Catheter Indwelling Catheter Indwelling Catheter # Bowel Movements 1 2 - Exam General appearance: The patient is alert, oriented, in no acute distress. HET: Head is normocephalic and atraumatic. Neck: Supple without lymphadenopathy. Trachea midline. Heart: S1 S2. Regular rate and rhythm. Lungs: No crackles or wheezes are heard. Abdomen: Soft, nontender, nondistended with bowel sounds. No peritoneal signs. Extremities: Normal skin color and turgor. No cyanosis, rash, ulceration, clubbing, or edema. Radial and pedal pulses are 2/4 bilaterally. Left elbow with swelling and effusion. Patient is able to freely move bilateral upper extremities. Neurological: No focal deficits. Strength and sensation are grossly intact. - Labs CBC & Chem 7: 10/31/19 10:42 10/31/19 04:17 Labs: Abnormal Lab Results - Last 24 Hours (Table) 07/04/0810/31/19 10/31/19 Range/Units 14:11 00:18 04:17 WBC 12.5 H 12.4 H (3.8-10.6) k/uL RBC 3.96 L 3.91 L (4.30-5.90) m/uL Hgb 11.9 L 11.3 L (13.0-17.5) gm/dL Hct 36.3 L 35.2 L (39.0-53.0) % RDW 15.6 H (11.5-15.5) % Plt Count 149 L (150-450) k/uL Neutrophils # 9.5 H 9.5 H (1.3-7.7) k/uL BUN 25 H (9-20) mg/dL Total Protein 5.1 L (6.3-8.2) g/dL Albumin 2.9 L (3.5-5.0) g/dL 10/31/19 10/31/19 Range/Units 04:17 10:42 WBC 11.4 H (3.8-10.6) k/uL RBC 3.67 L 3.76 L (4.30-5.90) m/uL Hgb 10.9 L 11.3 L (13.0-17.5) gm/dL Hct 33.7 L 34.3 L (39.0-53.0) % RDW (11.5-15.5) % Plt Count (150-450) k/uL Neutrophils # 9.0 H (1.3-7.7) k/uL BUN (9-20) mg/dL Total Protein (6.3-8.2) g/dL Albumin (3.5-5.0) g/dL Assessment and Plan Assessment: 1. 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 Questionable endoleak per CT abdominal pelvis 3. Lower GI bleed, status post colonoscopy 4. Coronary artery disease 5. Hyperlipidemia 6. Hypertension 7. Chronic kidney disease stage III 8. COPD Plan: Patient with history of abdominal aortic aneurysm with stent graft and a thoracic aortic aneurysm with stent graft. There is no indication for vascular surgical intervention at this time. There is no emergent indication for CT angiogram. However, would recommend in the near future either being inpatient or outpatient having a thoracic CT angiogram, and CTA abdomen/pelvis to rule out endoleak. Continue recommendations from ICU medical management. The above dictated assessment and findings were discussed with Dr. Narayanan. The impression and plan of care have been directed as dictated.
[2019-10-31 18:02] LABS: Basophils # (A) 0.1 k/uL (0-0.2); Basophils % (A) 1 %; Eosinophils # (A) 0.4 k/uL (0-0.7); Eosinophils % (A) 4 %; HCT 34.1 % (39.0-53.0); Hypochromasia Slight; Lymphocytes # (A) 1.3 k/uL (1.0-4.8); Lymphocytes % (A) 13 %; MCH 29.5 pg (25.0-35.0); MCHC 32.3 g/dL (31.0-37.0); MCV 91.4 fL (80.0-100.0); Mean Platelet Volume 7.5; Monocytes # (A) 0.5 k/uL (0-1.0); Monocytes % (A) 5 %; Neutrophils # (A) 7.6 k/uL (1.3-7.7); Neutrophils % (A) 77 %; Platelet Count 168 k/uL (150-450); RBC 3.73 m/uL (4.30-5.90); RDW 15.5 % (11.5-15.5); WBC 9.9 k/uL (3.8-10.6)
[2019-10-31] MEDS: ARIPiprazole 2 MG TAB PO SCH (20:06)
[2019-10-31] MEDS: MIRTAZAPINE 15 MG TAB PO SCH (20:06)
[2019-11-01 00:50] LABS: Basophils # (A) 0.1 k/uL (0-0.2); Basophils % (A) 1 %; Eosinophils # (A) 0.4 k/uL (0-0.7); Eosinophils % (A) 4 %; HGB 9.8 gm/dL (13.0-17.5); Lymphocytes # (A) 1.2 k/uL (1.0-4.8); Lymphocytes % (A) 12 %; MCH 28.2 pg (25.0-35.0); MCHC 31.5 g/dL (31.0-37.0); MCV 89.5 fL (80.0-100.0); Mean Platelet Volume 7.5; Monocytes # (A) 0.7 k/uL (0-1.0); Monocytes % (A) 6 %; Neutrophils # (A) 7.9 k/uL (1.3-7.7); Neutrophils % (A) 77 %; Platelet Count 148 k/uL (150-450); RBC 3.47 m/uL (4.30-5.90); RDW 15.6 % (11.5-15.5); WBC 10.3 k/uL (3.8-10.6)
[2019-11-01] MEDS: SODIUM CHLORIDE 0.9% 1,000 ML IV SCH (03:38)
[2019-11-01 04:51] LABS: Calcium 9.2 mg/dL (8.4-10.2); Potassium 4.1 mmol/L (3.5-5.1)
[2019-11-01] MEDS: MEMANTINE 10 MG TAB PO SCH ×2 (06:23→20:02)
[2019-11-01] MEDS: LEVOTHYROXINE 125 MCG TAB PO SCH (06:23)
[2019-11-01] MEDS: TAMSULOSIN 0.4 MG CAP.ER.24H PO SCH (08:25)
[2019-11-01] MEDS: DIGOXIN 125 MCG TAB PO SCH (08:25)
[2019-11-01] MEDS: DULoxetine HCL 30 MG CAPSULE.DR PO SCH (08:26)
[2019-11-01] MEDS: ATORVASTATIN 40 MG TAB PO SCH (08:26)
[2019-11-01] MEDS: METOPROLOL SUCCINATE (ER) 25 MG TAB.ER.24H PO SCH ×2 (08:26→21:16)
[2019-11-01] MEDS: PANTOPRAZOLE 40 MG/10 ML VIAL IV SCH (08:26)
[2019-11-01] MEDS: IPRATROPIUM-ALBUTEROL 3 ML NEB INHALATION SCH ×4 (09:44→21:52)
--- NOTE | 2019-11-01 11:44 | P.PN ---
<Aggie Ayala Mark - Last Filed: 11/01/19 11:40> Subjective Progress Note Date: 11/01/19 CHIEF COMPLAINT: rectal bleeding HISTORY OF PRESENT ILLNESS: Patient is s/p colonoscopy with Dr. Bryant revealing rectal stricture, diverticulosis, and descending colon polyp. Patient examined at the bedside. He denies abdominal pain. He reports having a bowel movement. He states he has not had any further rectal bleeding. Hemoglobin 9.8 today. PHYSICAL EXAM: VITAL SIGNS: Reviewed. GENERAL: Well-developed in no acute distress. HEENT: No sclera icterus. Extraocular movements grossly intact. Moist buccal mucosa. Head is atraumatic, normocephalic. ABDOMEN: Soft. Nondistended. Nontender. NEUROLOGIC: Alert and oriented. Cranial nerves II through XII grossly intact. ASSESSMENT: 1. Rectal bleeding PLAN: -Continue diet as tolerated -Monitor hemoglobin -Await biopsy results -Oncology consulted for evaluation. Await input and recommendations. Nurse practitioner note has been reviewed by physician. Signing provider agrees with the documented findings, assessment, and plan of care. Objective - Vital Signs Vital signs: Vital Signs Temp 97.8 F 11/01/19 08:33 Pulse 51 L 11/01/19 08:33 Resp 18 11/01/19 08:33 BP 146/72 11/01/19 08:33 Pulse Ox 99 11/01/19 08:33 Intake & Output 10/31/19 11/01/19 11/01/19 18:59 06:59 18:59 Intake Total 280 260 Output Total 345 200 Balance -65 60 Weight 87.3 kg Intake: IV 280 Sodium Chloride 0.9% 1, 80 000 ml @ 20 mls/hr IV . Q24H [facility] Rx#:[id number] Oral 260 Output: Urine 345 200 Other: Voiding Method Indwelling Catheter Indwelling Catheter Indwelling Catheter - Labs CBC & Chem 7: 11/01/19 00:17 11/01/19 03:54 Labs: Abnormal Lab Results - Last 24 Hours (Table) 10/31/19 11/01/19 11/01/19 Range/Units 17:37 00:17 03:54 RBC 3.73 L 3.47 L (4.30-5.90) m/uL Hgb 11.0 L 9.8 L (13.0-17.5) gm/dL Hct 34.1 L 31.0 L (39.0-53.0) % RDW 15.6 H (11.5-15.5) % Plt Count 148 L (150-450) k/uL Neutrophils # 7.9 H (1.3-7.7) k/uL Creatinine 1.31 H (0.66-1.25) mg/dL <Fercho Bryant - Last Filed: 11/01/19 16:38> Subjective As above. Patient with minimal bleeding post colonoscopy. Await biopsy results. August discharge. Objective - Vital Signs Vital signs: Vital Signs Temp 97.8 F 11/01/19 16:00 Pulse 65 11/01/19 16:00 Resp 18 11/01/19 16:00 BP 116/71 11/01/19 16:00 Pulse Ox 96 11/01/19 16:00 Intake & Output 10/31/19 11/01/19 11/01/19 18:59 06:59 18:59 Intake Total 280 260 Output Total 345 200 300 Balance -65 60 -300 Weight 87.3 kg Intake: IV 280 Sodium Chloride 0.9% 1, 80 000 ml @ 20 mls/hr IV . Q24H [facility] Rx#:[id number] Oral 260 Output: Urine 345 200 300 Other: Voiding Method Indwelling Catheter Indwelling Catheter Indwelling Catheter - Labs CBC & Chem 7: 11/01/19 00:17 11/01/19 03:54 Labs: Abnormal Lab Results - Last 24 Hours (Table) 10/31/19 11/01/19 11/01/19 Range/Units 17:37 00:17 00:31 RBC 3.73 L 3.47 L (4.30-5.90) m/uL Hgb 11.0 L 9.8 L (13.0-17.5) gm/dL Hct 34.1 L 31.0 L (39.0-53.0) % RDW 15.6 H (11.5-15.5) % Plt Count 148 L (150-450) k/uL Neutrophils # 7.9 H (1.3-7.7) k/uL Retic Count 3.6 H (0.5-2.0) % Creatinine (0.66-1.25) mg/dL 11/01/19 Range/Units 03:54 RBC (4.30-5.90) m/uL Hgb (13.0-17.5) gm/dL Hct (39.0-53.0) % RDW (11.5-15.5) % Plt Count (150-450) k/uL Neutrophils # (1.3-7.7) k/uL Retic Count (0.5-2.0) % Creatinine 1.31 H (0.66-1.25) mg/dL Assessment and Plan (1) Lower GI bleed Current Visit: Yes Status: Acute Code(s): K92.2 - GASTROINTESTINAL HEMORRHAGE, UNSPECIFIED SNOMED Code(s): 85011825
[2019-11-01] MEDS: MECLIZINE 12.5 MG TAB PO SCH ×3 (12:11→21:15)
[2019-11-01] MEDS: FLUTICASONE 50MCG/SPRAY NASAL 16GM EA NOSTRIL SCH (12:11)
--- NOTE | 2019-11-01 12:31 | P.PN ---
Subjective Progress Note Date: 11/01/19 Patient was seen and examined sitting up in chair. Patient denies any acute changes through the night. He denies any shortness of breath, S pain or back pain. Surgery remains on consult, patient is status post colonoscopy. Patient states he is not being discharged until pathology results come back. Patient's BUN 19, creatinine 1.31 this morning, so we'll hold off on ordering CT angiogram. Objective - Vital Signs Vital signs: Vital Signs Temp 97.8 F 11/01/19 08:33 Pulse 60 11/01/19 11:59 Resp 18 11/01/19 08:33 BP 146/72 11/01/19 08:33 Pulse Ox 99 11/01/19 08:33 Intake & Output 10/31/19 11/01/19 11/01/19 18:59 06:59 18:59 Intake Total 280 260 Output Total 345 200 Balance -65 60 Weight 87.3 kg Intake: IV 280 Sodium Chloride 0.9% 1, 80 000 ml @ 20 mls/hr IV . Q24H [facility] Rx#:[id number] Oral 260 Output: Urine 345 200 Other: Voiding Method Indwelling Catheter Indwelling Catheter Indwelling Catheter - Exam General appearance: The patient is alert, oriented, in no acute distress. HET: Head is normocephalic and atraumatic. Neck: Supple without lymphadenopathy. Trachea midline. Heart: S1 S2. Regular rate and rhythm. Lungs: No crackles or wheezes are heard. Abdomen: Soft, nontender, nondistended with bowel sounds. No peritoneal signs. Extremities: Normal skin color and turgor. No cyanosis, rash, ulceration, clubbing, or edema. Radial and pedal pulses are 2/4 bilaterally. Left elbow with swelling and effusion. Patient is able to freely move bilateral upper extremities. Neurological: No focal deficits. Strength and sensation are grossly intact. - Labs CBC & Chem 7: 11/01/19 00:17 11/01/19 03:54 Labs: Abnormal Lab Results - Last 24 Hours (Table) 10/31/19 11/01/19 11/01/19 Range/Units 17:37 00:17 03:54 RBC 3.73 L 3.47 L (4.30-5.90) m/uL Hgb 11.0 L 9.8 L (13.0-17.5) gm/dL Hct 34.1 L 31.0 L (39.0-53.0) % RDW 15.6 H (11.5-15.5) % Plt Count 148 L (150-450) k/uL Neutrophils # 7.9 H (1.3-7.7) k/uL Creatinine 1.31 H (0.66-1.25) mg/dL Assessment and Plan Assessment: 1. 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 Questionable endoleak per CT abdominal pelvis 3. Lower GI bleed, status post colonoscopy 4. Coronary artery disease 5. Hyperlipidemia 6. Hypertension 7. Chronic kidney disease stage III 8. COPD Plan: Patient is stable from a vascular surgical standpoint, with no indication for surgical interventions. With the worsening creatinine today, will recommend patient to follow-up as an outpatient and have further testing which will include CT angiogram thoracic and abdomen/pelvis. From a vascular surgical standpoint patient is stable for discharge. He can follow-up in our office in one to two weeks after discharge. The above dictated assessment and findings were discussed with Dr. Narayanan. The impression and plan of care have been directed as dictated.
--- NOTE | 2019-11-01 13:41 | P.PN ---
Subjective This is a very pleasant 89-year-old patient of Dr. price . Chronic stable medical conditions include COPD, BPH, hypothyroid hypertension, hyperlipidemia, coronary artery disease, mild cognitive impairment, coronary artery disease with prior stent, chronic kidney disease stage III.. Has a long-standing history of chronic dizziness. Supposed to follow with ENT Dr. Santana as an outpatient. Patient is here in the hospital exactly week ago with pneumonia. Was discharged on 3 days course of Ceftin. Patient now presents to the ER for episodes of intermittent rectal bleeding. Fresh blood with blood clots. No abdominal pain. Feels tired rundown. Admitted to the ICU. No fever no chills. Subjective 10/31/2019 Patient is awake and alert, hysterectomy and diet with no abdominal pain. He had some large bloody bowel movement yesterday however his hemoglobin remained stable. Today he has more light brown stool. Vitals stable and is afebrile. WBC is back to normal at 10.0 K, hemoglobin stable at 11.3 and his BMP is unremarkable. He underwent colonoscopy this morning with Dr. Bryant: Descending polyp status post polypectomy, mid rectal stricture, no gross proctitis. Biopsy was taken and result is pending Surgery team recommended oncology consult CEA is 2.2, which is within reference range. pro-Calcitonin is negative at 0.06 11/01/2019 Patient is moved to the general medical floor at [facility] today, he has no abdominal pain today only some mild suprapubic discomfort but no dysuria or change in frequency. Diet is advanced. He had no bowel movement but passing gases, no more blood per rectum. Vitals are stable and hemoglobin dropped slightly from 11.0 down to 9.8, there is creatinine went up from 1.1 to 1.3. colon/Rectal biopsy are pending. PT/OT is ordered and pending. Patient is able to walk without Vascular surgery team evaluated the patient for history of aortic aneurysm status post stent, and the recommended patient is stable for discharge and follow-up as an outpatient for possible CT angiogram of the thoracic, abdomen and pelvis Oncology team were consulted and pending Review of systems CONSTITUTIONAL: No fever, no malaise, no fatigue. HEENT: No recent visual problems or hearing problems. Denied any sore throat. CARDIOVASCULAR: No orthopnea, PND, no palpitations, no syncope. PULMONARY: No shortness of breath, no cough, no hemoptysis. GASTROINTESTINAL: No diarrhea, no nausea, no vomiting, no abdominal pain. Normoactive bowel sounds. NEUROLOGICAL: No headaches, no weakness, no numbness. HEMATOLOGICAL: Denies any bleeding or petechiae. GENITOURINARY: Denies any burning micturition, frequency, or urgency. MUSCULOSKELETAL/RHEUMATOLOGICAL: Denies any joint pain, swelling, or any muscle pain. ENDOCRINE: Denies any polyuria or polydipsia. Active Medications Generic Name Dose Route Start Last Admin Trade Name Freq PRN Reason Stop Dose Admin Acetaminophen 650 mg 10/30/19 02:25 Tylenol Tab PO Q4HR PRN Fever and/or Mild Pain Albuterol/Ipratropium 3 ml 10/30/19 12:00 11/01/19 11:59 Duoneb 0.5 Mg-3 Mg/3 Ml Soln INHALATION 3 ml RT-QID TWILA Administration Albuterol/Ipratropium 3 ml 10/30/19 09:59 Duoneb 0.5 Mg-3 Mg/3 Ml Soln INHALATION RT-TID PRN Shortness Of Breath Or Wheezing Alprazolam 0.5 mg 10/30/19 09:52 Xanax PO BID PRN Anxiety Aripiprazole 2 mg 10/30/19 21:00 10/31/19 20:06 Abilify PO 2 mg HS TWILA Administration Atorvastatin Calcium 40 mg 10/30/19 10:00 11/01/19 08:26 Lipitor PO 40 mg DAILY TWILA Administration Digoxin 125 mcg 10/30/19 10:00 11/01/19 08:25 Lanoxin PO 125 mcg DAILY TWILA Administration Duloxetine HCl 30 mg 10/30/19 10:00 11/01/19 08:26 Cymbalta PO 30 mg DAILY TWILA Administration Ergocalciferol 50,000 unit 10/30/19 10:00 10/30/19 10:19 Vitamin D2 PO 50,000 unit Q7D TWILA Administration Fluticasone Propionate 1 spray 10/30/19 10:00 11/01/19 12:11 Flonase Nasal [place] EA NOSTRIL Not Given DAILY TWILA Sodium Chloride 1,000 mls @ 20 mls/hr 10/30/19 02:30 11/01/19 03:38 Saline 0.9% IV Not Given .Q24H TWILA Levothyroxine Sodium 125 mcg 10/30/19 10:00 11/01/19 06:23 Synthroid PO 125 mcg DAILY@0630 TWILA Administration Meclizine HCl 12.5 mg 10/30/19 10:00 11/01/19 12:11 Antivert PO 12.5 mg TID TWILA Administration Memantine 10 mg 10/30/19 10:00 11/01/19 06:23 Namenda PO 10 mg AC-BID TWILA Administration Metoprolol Succinate 25 mg 10/30/19 10:00 11/01/19 08:26 Toprol Xl PO 25 mg BID TWILA Administration Mirtazapine 30 mg 10/30/19 21:00 10/31/19 20:06 Remeron PO 30 mg HS TWILA Administration Morphine Sulfate 2 mg 10/30/19 02:25 Morphine Sulfate (Inj) IV Q2HR PRN Pain Scale 4 to 5 Naloxone HCl 0.2 mg 10/30/19 02:25 Narcan IV Q2M PRN Opioid Reversal Nitroglycerin 0.4 mg 10/30/19 09:52 Nitrostat SUBLINGUAL Q5M PRN Chest Pain Ondansetron HCl 4 mg 10/30/19 03:09 10/31/19 00:08 Zofran IVP 4 mg Q8H PRN Administration Nausea Pantoprazole Sodium 40 mg 10/30/19 09:00 11/01/19 08:26 Protonix IV 40 mg DAILY TWILA Administration Tamsulosin HCl 0.4 mg 10/30/19 10:00 11/01/19 08:25 Flomax PO 0.4 mg DAILY TWILA Administration Objective - Vital Signs Vital signs: Vital Signs Temp 97.8 F 11/01/19 12:35 Pulse 57 L 11/01/19 12:35 Resp 18 11/01/19 12:35 BP 133/83 11/01/19 12:35 Pulse Ox 98 11/01/19 12:35 Intake & Output 10/31/19 11/01/19 11/01/19 18:59 06:59 18:59 Intake Total 280 260 Output Total 345 200 Balance -65 60 Weight 87.3 kg Intake: IV 280 Sodium Chloride 0.9% 1, 80 000 ml @ 20 mls/hr IV . Q24H [facility] Rx#:[id number] Oral 260 Output: Urine 345 200 Other: Voiding Method Indwelling Catheter Indwelling Catheter Indwelling Catheter - Exam GENERAL: The patient is alert and oriented x3, not in any acute distress. Well developed, well nourished. HEENT: Pupils are round and equally reacting to light. EOMI. No scleral icterus. No conjunctival pallor. Normocephalic, atraumatic. No pharyngeal erythema. No thyromegaly. CARDIOVASCULAR: S1 and S2 present. No murmurs, rubs, or gallops. PULMONARY: Chest is clear to auscultation, no wheezing or crackles. ABDOMEN: Soft, nontender, nondistended, normoactive bowel sounds. No palpable organomegaly. MUSCULOSKELETAL: No joint swelling or deformity. EXTREMITIES: No cyanosis, clubbing, or pedal edema. NEUROLOGICAL: Gross neurological examination did not reveal any focal deficits. SKIN: No rashes. No petechiae - Labs CBC & Chem 7: 11/01/19 00:17 11/01/19 03:54 Labs: Abnormal Lab Results - Last 24 Hours (Table) 10/31/19 11/01/19 11/01/19 Range/Units 17:37 00:17 03:54 RBC 3.73 L 3.47 L (4.30-5.90) m/uL Hgb 11.0 L 9.8 L (13.0-17.5) gm/dL Hct 34.1 L 31.0 L (39.0-53.0) % RDW 15.6 H (11.5-15.5) % Plt Count 148 L (150-450) k/uL Neutrophils # 7.9 H (1.3-7.7) k/uL Creatinine 1.31 H (0.66-1.25) mg/dL Assessment and Plan Assessment: -Acute lower GI fresh bleeding with blood clots. Status post colonoscopy, found rectal stricture and descending colon polyp status post polypectomy -Acute blood loss anemia -Prior history of rectal cancer consider recurrence -COPD in an ex-smoker -Mild cognitive impairment from underlying dementia -Hyperlipidemia -Essential hypertension -Coronary artery disease with prior history of stent -Chronic kidney disease stage III from nephrosclerosis -BPH -Hypothyroid -Broad-based umbilical hernia Plan: This is a pleasant 89 years old male who presents with GI bleed, status post colonoscopy which showed only polyp and rectal stricture. Surgery team is f ollowing the case closely as well as pulmonary/critical care team. Also consult oncology service per recommendation by surgery team Given his history of rectal cancer. Hold aspirin and Lasix Labs and medication were reviewed.. Continue same treatment. Continue with symptomatic treatment. Resume home medication. Monitor lytes and vitals. DVT and GI prophylaxis. Further recommendations of the clinical course of the patient DVT prophylaxis: Not Subcutaneous heparin and review of GI bleed GI Prophylaxis: Ppi
--- NOTE | 2019-11-01 14:10 | P.PN ---
Subjective Progress Note Date: 11/01/19 Principal diagnosis: Acute lower GI bleeding, rectal, status post colonoscopy revealing descending colon polyp, and rectal stricture This is an 89-year-old male patient was being seen in follow-up in intensive care unit for GI bleed. Note that the patient was Hospital as for a lower GI bleed and overnight he continued to have low-grade was from his rectal area. He underwent a bowel prep and the plan is to proceed with a colonoscopy today by Dr. Fercho Fernnadez. The patient has no hematemesis. No nausea or vomiting. No abdominal pain. He has a remote history of cancer that was resected by one of our thyroid surgeons 23 years ago. He has a lower abdominal scar along with a umbilical hernia. He also has an abdominal aortic aneurysm for which is undergone endovascular stent grafting. He is currently nothing by mouth. His comorbidities include COPD, dementia, hyperlipidemia, hypertension, CAD, previous [place], stage III chronic kidney disease. The patient has no specific complaints otherwise for now. He was seen by vascular surgery regarding the abdominal aortic aneurysm. He denies having any abdominal pain. His pulses in lower extremities are equal and symmetrical. The plan is to have a CT angiogram at a later stage once the renal function stabilizes. No emergency regarding this study at this point in time. On 11/01/2019 patient seen in follow-up on selective care unit, he is resting comfortably in bed, denies any acute distress, he is currently on 2 L of oxygen, denies any shortness of breath, his pulse ox on 2 L is 98%, hemodynamically he is stable, he is afebrile, today's hemoglobin is 9.8, patient is passing liquid stools, however there is no visible blood in it, his stools are liquid brown in nature. Patient is status post colonoscopy that revealed descending colon polyp which was biopsied, and rectal stricture. Surgical services are following, awaiting biopsy results, diet has been resumed, oncology has been consulted, given the recent history of CAT scan findings of thickening at the rectosigmoid junction with the possibility of recurrent tumor. Possibility of outpatient PET scan is being considered. No abdominal pain. No nausea or vomiting. Objective - Vital Signs Vital signs: Vital Signs Temp 97.8 F 11/01/19 12:35 Pulse 57 L 11/01/19 12:35 Resp 18 11/01/19 12:35 BP 133/83 11/01/19 12:35 Pulse Ox 98 11/01/19 12:35 Intake & Output 10/31/19 11/01/19 11/01/19 18:59 06:59 18:59 Intake Total 280 260 Output Total 345 200 Balance -65 60 Weight 87.3 kg Intake: IV 280 Sodium Chloride 0.9% 1, 80 000 ml @ 20 mls/hr IV . Q24H [facility] Rx#:[id number] Oral 260 Output: Urine 345 200 Other: Voiding Method Indwelling Catheter Indwelling Catheter Indwelling Catheter - Exam GENERAL EXAM: Alert, very pleasant, 89-year-old woman on 2 L of oxygen and the pulse ox of 98% comfortable in no apparent distress. HEAD: Normocephalic/atraumatic. EYES: Normal reaction of pupils, equal size. Conjunctiva pink, sclera white. NOSE: Clear with pink turbinates. THROAT: No erythema or exudates. NECK: No masses, no JVD, no thyroid enlargement, no adenopathy. CHEST: No chest wall deformity. Symmetrical expansion. LUNGS: Equal air entry with no crackles, wheeze, rhonchi or dullness. CVS: Regular rate and rhythm, normal S1 and S2, no gallops, no murmurs, no rubs ABDOMEN: Soft, nontender. No hepatosplenomegaly, normal bowel sounds, no gu arding or rigidity. EXTREMITIES: No clubbing, no edema, no cyanosis, 2+ pulses and upper and lower e xtremities. MUSCULOSKELETAL: Muscle strength and tone normal. SPINE: No scoliosis or deformity SKIN: No rashes CENTRAL NERVOUS SYSTEM: Alert and oriented -3. No focal deficits, tone is normal in all 4 extremities. PSYCHIATRIC: Alert and oriented -3. Appropriate affect. Intact judgment and insight. - Labs CBC & Chem 7: 11/01/19 00:17 11/01/19 03:54 Labs: Abnormal Lab Results - Last 24 Hours (Table) 10/31/19 11/01/19 11/01/19 Range/Units 17:37 00:17 03:54 RBC 3.73 L 3.47 L (4.30-5.90) m/uL Hgb 11.0 L 9.8 L (13.0-17.5) gm/dL Hct 34.1 L 31.0 L (39.0-53.0) % RDW 15.6 H (11.5-15.5) % Plt Count 148 L (150-450) k/uL Neutrophils # 7.9 H (1.3-7.7) k/uL Creatinine 1.31 H (0.66-1.25) mg/dL Assessment and Plan Plan: Assessment: 1 acute lower GI bleeding currently under investigation. The patient appears history of rectal cancer resected 23 years ago. Consider gastrointestinal malignancy based on overall presentation. Nevertheless, the patient is hemodynamically stable and hemoglobin is stable for now. General surgeries on the case. There is a slight increase in soft tissue density at the rectosigmoid colon/junction that was measuring 5 cm in size. She'll recurrence within that area needs to be considered. Status post colonoscopy with removal and biopsy of the descending colon polyp, and rectal stricture 2 history of rectal cancer, resected surgically many years back 3 blood loss anemia and hemoglobin is stable for now and the patient did not require a blood transfusion. Today's hemoglobin on 11/01/2019 is 90.8, with no signs of active bleeding 4 coronary artery disease 5 stage III kidney disease currently stable creatinine 6 hypertension 7 hypothyroidism 8 BPH 9 COPD 10 dementia with mild impairment of the cognitive functions. 11 AAA status post endovascular stent grafting 12 umbilical hernia 13 left inguinal hernia 14 history of pacemaker insertion current rhythm is paced Plan: Continue current medical treatment, results of colonoscopy were noted, no active bleeding overnight, today's hemoglobin is 9.8, patient is passing liquid brown stools. Remains comfortable, vital signs are stable, no shortness of breath, breathing is comfortable, no nausea or vomiting, oncology services have been consulted for possibility of recurrent tumor in the anastomotic site. No active critical care issues at this time, we will sign off, and follow on as-needed basis. Surgery and medical oncology following. I performed a history & physical examination of the patient and discussed their management with my nurse practitioner, Carla Islas. I reviewed the nurse practitioner's note and agree with the documented findings and plan of care. Lung sounds are positive for clear breath sounds. The findings and the impression was discussed with the patient. I attest to the documentation by the nurse practitioner. Time with Patient: Less than 30
[2019-11-01 14:31] LABS: Reticulocyte % 3.6 % (0.5-2.0)
--- NOTE | 2019-11-01 16:47 | P.CONS ---
History of Present Illness - Reason for Consult Consult date: 11/01/19 hx rectal cancer Requesting physician: Tomi E Sheet Review of Systems A 14 point review of systems assessed and completed and all negative except HPI Past Medical History Past Medical History: Chest Pain / Angina, COPD, Dementia, Hyperlipidemia, Hypertension, Myocardial Infarction ([place]), Renal Disease Additional Past Medical History / Comment(s): aneurysm, colon cancer Last Myocardial Infarction Date:: unknown History of Any Multi-Drug Resistant Organisms: None Reported Past Surgical History: Heart Catheterization With Stent Additional Past Surgical History / Comment(s): aneurysm repair to heart and abd Past Anesthesia/Blood Transfusion Reactions: No Reported Reaction Date of Last Stent Placement:: unknown Type of Cardiac Device: Permanent Pacemaker Device Placement Date:: unknown Past Psychological History: Depression Past Alcohol Use History: None Reported Past Drug Use History: None Reported - Past Family History Father Additional Family Medical History / Comment(s): alcoholic Mother Additional Family Medical History / Comment(s): anerysm, of [place] Medications and Allergies Home Medications Medication Instructions Recorded Confirmed Type ALPRAZolam [Xanax] 0.5 mg PO BID PRN 01/21/17 10/29/19 History ARIPiprazole [Abilify] 2 mg PO HS 01/21/17 10/29/19 History Aspirin EC [Ecotrin Low Dose] 81 mg PO DAILY 01/21/17 10/29/19 History Atorvastatin [Lipitor] 40 mg PO DAILY 01/21/17 10/29/19 History DULoxetine HCL [Cymbalta] 30 mg PO DAILY 01/21/17 10/29/19 History Digoxin [Lanoxin] 125 mcg PO DAILY 01/21/17 10/29/19 History Diphenox-Atrop 2.5-0.025 mg 2 tab PO QID PRN 01/21/17 10/29/19 History [Lomotil] Furosemide [Lasix] 40 mg PO DAILY 01/21/17 10/29/19 History Levothyroxine Sodium [Synthroid] 125 mcg PO DAILY 01/21/17 10/29/19 History Memantine [Namenda] 10 mg PO AC-BID 01/21/17 10/29/19 History Metoprolol Succinate (ER) [Toprol 25 mg PO BID 01/21/17 10/29/19 History XL] Mirtazapine [Remeron] 30 mg PO HS 01/21/17 10/29/19 History Nitroglycerin Sl Tabs [Nitrostat] 0.4 mg SUBLINGUAL Q5M PRN 01/21/17 10/29/19 History Fluticasone Nasal [place] [Flonase 1 spr EA NOSTRIL DAILY 04/09/19 10/29/19 History Nasal [place]] Omeprazole 20 mg PO DAILY 04/09/19 10/29/19 History Tamsulosin [Flomax] 0.4 mg PO DAILY 04/09/19 10/29/19 History Meclizine [Antivert] 12.5 mg PO TID #0 10/24/19 10/29/19 Rx Ipratropium-Albuterol Nebulize 3 ml INHALATION RT-TID 10/29/19 10/29/19 History [Duoneb 0.5 mg-3 mg/3 ml Soln] Vitamin D3 50,000iu 50,000 unit PO Q7D 10/29/19 10/29/19 History predniSONE See Taper PO DAILY 10/29/19 10/29/19 History Allergies Allergy/AdvReac Type Severity Reaction Status Date / Time warfarin [From Coumadin] AdvReac Unknown Verified 10/29/19 23:28 Physical Exam Vitals: Vital Signs Temp Pulse Pulse Resp BP BP Pulse Ox 11/01/19 12:35 97.8 F 57 L 16 133/83 98 11/01/19 12:10 60 11/01/19 11:59 60 11/01/19 08:33 97.8 F 51 L 16 146/72 99 11/01/19 04:00 98.0 F 54 L 18 154/77 98 11/01/19 03:00 51 L 17 149/76 11/01/19 02:00 51 L 15 148/83 11/01/19 01:00 52 L 12 142/82 11/01/19 00:03 55 L 15 142/82 11/01/19 00:00 98.3 F 54 L 19 137/81 95 10/31/19 23:00 55 L 16 144/73 10/31/19 22:00 55 L 10 L 164/78 10/31/19 21:00 51 L 20 155/85 10/31/19 20:43 59 L 16 10/31/19 20:32 52 L 16 10/31/19 20:00 98.3 F 52 L 12 155/85 95 10/31/19 19:00 50 L 20 140/78 10/31/19 18:00 50 L 12 164/109 10/31/19 17:00 50 L 33 H 147/87 10/31/19 16:35 50 L 16 10/31/19 16:23 50 L 16 Intake and Output 11/01/19 11/01/19 11/01/19 06:59 14:59 22:59 Output Total 300 Balance -300 Output: Urine 300 Other: Voiding Method Indwelling Catheter Indwelling Catheter Weight 87.3 kg EYES: Pupils equal. Conjunctiva normal. HEENT: oral cavity normal. [place] NECK: Supple No Palpable adenopathy HEART: First and second heart sounds are normal; no edema. LUNGS: Increased Respiratory effort, diminished breath sounds bibasilar ABDOMEN: Soft, nontender, liver spleen not palpable, no masses palpable. PSYCH: Able to answer questions sometimes slowly. Poor historian NEUROLOGICAL: Cranial nerves grossly intact; Results CBC & Chem 7: 11/01/19 00:17 11/01/19 03:54 Labs: Abnormal Lab Results - Last 24 Hours (Table) 10/31/19 11/01/19 11/01/19 Range/Units 17:37 00:17 00:31 RBC 3.73 L 3.47 L (4.30-5.90) m/uL Hgb 11.0 L 9.8 L (13.0-17.5) gm/dL Hct 34.1 L 31.0 L (39.0-53.0) % RDW 15.6 H (11.5-15.5) % Plt Count 148 L (150-450) k/uL Neutrophils # 7.9 H (1.3-7.7) k/uL Retic Count 3.6 H (0.5-2.0) % Creatinine (0.66-1.25) mg/dL 11/01/19 Range/Units 03:54 RBC (4.30-5.90) m/uL Hgb (13.0-17.5) gm/dL Hct (39.0-53.0) % RDW (11.5-15.5) % Plt Count (150-450) k/uL Neutrophils # (1.3-7.7) k/uL Retic Count (0.5-2.0) % Creatinine 1.31 H (0.66-1.25) mg/dL CT scan - abdomen: report reviewed CT scan - pelvis: report reviewed Assessment and Plan (1) History of colorectal cancer Current Visit: Yes Status: Acute Code(s): Z85.048 - PRSNL HX OF MALIG NEOPLM OF RECTUM, RECTOSIG JUNCT, AND ANUS SNOMED Code(s): 174313705 (2) GI bleed Current Visit: Yes Status: Acute Code(s): K92.2 - GASTROINTESTINAL HEMORRHAGE, UNSPECIFIED SNOMED Code(s): 48038674 Plan: Assessment and Recommendations: Acute Blood Loss Anemia - GI Blood Loss: - Check Iron Studies - CBC daily Hx: Colorectal Ca: -Status Post tissue biopsy of slightly increased soft tissue density at the retrosigmoid junction. If this is negative can restage with PET as outpatient to confirm no recurrence of malignancy Physician Attest: I have completed the full history and physical and agree with above dictation, dictated as a scribe
[2019-11-01] MEDS: MIRTAZAPINE 15 MG TAB PO SCH (21:15)
[2019-11-01] MEDS: ARIPiprazole 2 MG TAB PO SCH (21:16)
[2019-11-02 01:46] LABS: % Iron Saturation 15.69 (15.00-50.00)
[2019-11-02 01:53] LABS: Ferritin 108.1 ng/mL (22.0-322.0)
[2019-11-02 01:57] LABS: Folate, Serum 19.8 ng/mL
[2019-11-02] MEDS: SODIUM CHLORIDE 0.9% 1,000 ML IV SCH (06:08)
[2019-11-02] MEDS: LEVOTHYROXINE 125 MCG TAB PO SCH (06:09)
[2019-11-02] MEDS: MEMANTINE 10 MG TAB PO SCH (06:09)
[2019-11-02 06:28] LABS: Basophils % (A) 0 %; Eosinophils # (A) 0.3 k/uL (0-0.7); Eosinophils % (A) 4 %; HCT 31.7 % (39.0-53.0); HGB 10.1 gm/dL (13.0-17.5); Lymphocytes # (A) 1.3 k/uL (1.0-4.8); Lymphocytes % (A) 15 %; MCH 28.3 pg (25.0-35.0); MCHC 31.9 g/dL (31.0-37.0); MCV 88.7 fL (80.0-100.0); Mean Platelet Volume 7.6; Monocytes # (A) 0.5 k/uL (0-1.0); Monocytes % (A) 6 %; Neutrophils # (A) 6.3 k/uL (1.3-7.7); Neutrophils % (A) 74 %; Platelet Count 154 k/uL (150-450); RBC 3.58 m/uL (4.30-5.90); RDW 15.7 % (11.5-15.5); WBC 8.5 k/uL (3.8-10.6)
[2019-11-02 06:33] LABS: Calcium 9.1 mg/dL (8.4-10.2); Potassium 4.2 mmol/L (3.5-5.1); Total Bilirubin 0.8 mg/dL (0.2-1.3); Total Protein 5.2 g/dL (6.3-8.2)
[2019-11-02] MEDS: IPRATROPIUM-ALBUTEROL 3 ML NEB INHALATION SCH ×2 (07:43→11:14)
[2019-11-02] MEDS: FLUTICASONE 50MCG/SPRAY NASAL 16GM EA NOSTRIL SCH (08:28)
[2019-11-02] MEDS: PANTOPRAZOLE 40 MG/10 ML VIAL IV SCH (08:28)
[2019-11-02] MEDS: ATORVASTATIN 40 MG TAB PO SCH (08:28)
[2019-11-02] MEDS: MECLIZINE 12.5 MG TAB PO SCH (08:28)
[2019-11-02] MEDS: DIGOXIN 125 MCG TAB PO SCH (08:28)
[2019-11-02] MEDS: TAMSULOSIN 0.4 MG CAP.ER.24H PO SCH (08:28)
[2019-11-02] MEDS: METOPROLOL SUCCINATE (ER) 25 MG TAB.ER.24H PO SCH (08:28)
[2019-11-02] MEDS: DULoxetine HCL 30 MG CAPSULE.DR PO SCH (08:32)
--- NOTE | 2019-11-02 10:17 | P.PN ---
<Aggie Ayala Mark - Last Filed: 11/02/19 10:10> Subjective Progress Note Date: 11/02/19 CHIEF COMPLAINT: rectal bleeding HISTORY OF PRESENT ILLNESS: Patient is s/p colonoscopy with Dr. Bryant revealing rectal stricture, diverticulosis, and descending colon polyp. Patient examined this morning. He denies abdominal pain. Tolerating diet. No nausea or vomiting. Passing flatus and having bowel movements. Denies further rectal bleeding. Hemoglobin 10.1. PHYSICAL EXAM: VITAL SIGNS: Reviewed. GENERAL: Well-developed in no acute distress. HEENT: No sclera icterus. Extraocular movements grossly intact. Moist buccal mucosa. Head is atraumatic, normocephalic. ABDOMEN: Soft. Nondistended. Nontender. NEUROLOGIC: Alert and oriented. Cranial nerves II through XII grossly intact. ASSESSMENT: 1. Rectal bleeding PLAN: -Continue diet as tolerated -Monitor hemoglobin -Await biopsy results -Oncology recommending outpatient PET scan if biopsy negative -Patient may be discharged from a surgical standpoint and follow up outpatient Nurse practitioner note has been reviewed by physician. Signing provider agrees with the documented findings, assessment, and plan of care. Objective - Vital Signs Vital signs: Vital Signs Temp 97.7 F 11/02/19 03:51 Pulse 60 11/02/19 07:58 Resp 18 11/02/19 03:51 BP 148/73 11/02/19 03:51 Pulse Ox 94 L 11/02/19 03:51 Intake & Output 11/01/19 11/02/19 11/02/19 18:59 06:59 18:59 Intake Total 240 120 180 Output Total 465 400 Balance -225 -280 180 Weight 82 kg Intake: Oral 240 120 180 Output: Urine 465 400 Uretheral (Narayanan) 165 Other: Voiding Method Indwelling Catheter Urinal - Labs CBC & Chem 7: 11/02/19 06:01 11/02/19 06:01 Labs: Abnormal Lab Results - Last 24 Hours (Table) 11/01/19 11/01/19 11/02/19 Range/Units 00:31 03:54 06:01 RBC 3.58 L (4.30-5.90) m/uL Hgb 10.1 L (13.0-17.5) gm/dL Hct 31.7 L (39.0-53.0) % RDW 15.7 H (11.5-15.5) % Retic Count 3.6 H (0.5-2.0) % BUN (9-20) mg/dL Creatinine (0.66-1.25) mg/dL Glucose (74-99) mg/dL Iron 40 L (65-175) ug/dL Total Protein (6.3-8.2) g/dL Albumin (3.5-5.0) g/dL Vitamin B12 1044.0 H (200.0-944.0) pg/mL 11/02/19 Range/Units 06:01 RBC (4.30-5.90) m/uL Hgb (13.0-17.5) gm/dL Hct (39.0-53.0) % RDW (11.5-15.5) % Retic Count (0.5-2.0) % BUN 21 H (9-20) mg/dL Creatinine 1.37 H (0.66-1.25) mg/dL Glucose 102 H (74-99) mg/dL Iron (65-175) ug/dL Total Protein 5.2 L (6.3-8.2) g/dL Albumin 3.0 L (3.5-5.0) g/dL Vitamin B12 (200.0-944.0) pg/mL <Fercho Bryant - Last Filed: 11/02/19 12:07> Subjective As above. Biopsy results look okay. We'll plan outpatient PET scan per oncology. Objective - Vital Signs Vital signs: Vital Signs Temp 98.0 F 11/02/19 08:00 Pulse 64 11/02/19 11:25 Resp 20 11/02/19 08:00 BP 133/64 11/02/19 08:00 Pulse Ox 90 L 11/02/19 08:00 Intake & Output 11/01/19 11/02/19 11/02/19 18:59 06:59 18:59 Intake Total 240 120 180 Output Total 465 400 Balance -225 -280 180 Weight 82 kg Intake: Oral 240 120 180 Output: Urine 465 400 Uretheral (Narayanan) 165 Other: Voiding Method Indwelling Catheter Urinal # Voids 1 - Labs CBC & Chem 7: 11/02/19 06:01 11/02/19 06:01 Labs: Abnormal Lab Results - Last 24 Hours (Table) 11/01/19 11/01/19 11/02/19 Range/Units 00:31 03:54 06:01 RBC 3.58 L (4.30-5.90) m/uL Hgb 10.1 L (13.0-17.5) gm/dL Hct 31.7 L (39.0-53.0) % RDW 15.7 H (11.5-15.5) % Retic Count 3.6 H (0.5-2.0) % BUN (9-20) mg/dL Creatinine (0.66-1.25) mg/dL Glucose (74-99) mg/dL Iron 40 L (65-175) ug/dL Total Protein (6.3-8.2) g/dL Albumin (3.5-5.0) g/dL Vitamin B12 1044.0 H (200.0-944.0) pg/mL 11/02/19 Range/Units 06:01 RBC (4.30-5.90) m/uL Hgb (13.0-17.5) gm/dL Hct (39.0-53.0) % RDW (11.5-15.5) % Retic Count (0.5-2.0) % BUN 21 H (9-20) mg/dL Creatinine 1.37 H (0.66-1.25) mg/dL Glucose 102 H (74-99) mg/dL Iron 37 L (65-175) ug/dL Total Protein 5.2 L (6.3-8.2) g/dL Albumin 3.0 L (3.5-5.0) g/dL Vitamin B12 (200.0-944.0) pg/mL Assessment and Plan (1) Lower GI bleed Current Visit: Yes Status: Acute Code(s): K92.2 - GASTROINTESTINAL HEMORR VIRA, UNSPECIFIED SNOMED Code(s): 21277325
[2019-11-02 10:22] VITALS: BP 133/64; RESP 20; TEMP 98
[2019-11-02 11:18] VITALS: PULSE 64
--- NOTE | 2019-11-02 23:02 | P.DS ---
Providers Date of admission: 10/30/19 02:26 Attending physician: Stevo Guevara Consults: 10/30/19 02:25 Consult Physician Stat Consulting Provider: Fercho Bryant Consult Reason/Comments: GI Bleeding Do you want consulting provider notified?: Already Contacted 10/30/19 02:26 Consult Physician Stat Consulting Provider: Nabeel Montgomery Consult Reason/Comments: Intensive care. Do you want consulting provider notified?: Already Contacted 10/30/19 07:47 Consult Physician Stat Consulting Provider: Mike Lewis Consult Reason/Comments: possible leaking aneurysm Do you want consulting provider notified?: Already Contacted 10/31/19 13:30 Consult Physician Routine Consulting Provider: Vinay Harris Consult Reason/Comments: hishtory of rectal cancer, with rectal stricture Do you want consulting provider notified?: Yes Primary care physician: Harvinder Jimenez [place] Hospital Course: Diagnoses: -Acute lower GI fresh bleeding with blood clots. Status post colonoscopy, found rectal stricture and descending colon polyp status post polypectomy. 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 jimenez . Chronic stable medical conditions include COPD, BPH, hypothyroid hypertension, hyperlipidemia, coronary artery disease, mild cognitive impairment, coronary artery disease with prior stent, chronic kidney disease stage III.. Has a long-standing history of chronic dizziness. Supposed to follow with ENT Dr. Santana as an outpatient. Patient is here in the hospital exactly week ago with pneumonia. Was discharged on 3 days course of Ceftin. Patient now presents to the ER for episodes of intermittent rectal bleeding. Patient has been evaluated by surgery team, He underwent colonoscopy this morning with Dr. Bryant: Descending polyp status post polypectomy, mid rectal stricture, no gross proctitis. Biopsy was taken and showing descending: Tubulovillous adenoma and rectal Hyperplastic polyp. Patient remains stable with no chest pain or dyspnea, no coughing. No abdominal pain. Claritin that well. Had a regular bowel movement. No urinary complaints. No fever. Patient is eager to go home from yesterday Patient has been evaluated by oncologist for possible PET scan as an outpatient to check for colon cancer recurrence, patient informed and he agrees. Also vascular surgery evaluated the patient for thoracic and abdominal aortic stents and recommended outpatient follow-up for possible repeat CAT scan of the aorta and patient agrees as well. Patient was cleared for discharge by all consultants including surgery, vascular surgery and oncology. Patient can resume aspirin upon discharge per surgery team, also omeprazole increased from 20 mg daily at home to 20 mg twice a day Problems and management plan were discussed with the patient and he verbalized understanding and acceptance Patient was found stable and can be discharged home however he needs follow-up as an outpatient. Patient was instructed to follow up with PCP within one week and patient agrees Patient agrees with the appointments with the vascular surgery Dr. Hall on and surgeon Dr. Bryant 11/08 and states he'll follow-up, also he agrees to do his own appointment with oncology services Dr. Harris for outpatient PET scan and his PCP Dr. Albright Gen: patient is a AAOx3, no distress CVS: S1-S2, RRR, no murmur Lungs: B/L CTA, no wheezing Abdomen: soft, no distention, no tenderness, positive bowel sounds Extremity: no leg edema or induration Time spent more than 35 minutes Patient Condition at Discharge: Serious Plan - Discharge Summary Discharge Rx Participant: No New Discharge Prescriptions: New Omeprazole [PriLOSEC] 20 mg PO AC-BID #60 cap Acetaminophen Tab [Tylenol] 650 mg PO Q4HR PRN tab PRN Reason: Fever And/Or Mild Pain Continue Nitroglycerin Sl Tabs [Nitrostat] 0.4 mg SUBLINGUAL Q5M PRN PRN Reason: Chest Pain Mirtazapine [Remeron] 30 mg PO HS Metoprolol Succinate (ER) [Toprol XL] 25 mg PO BID Memantine [Namenda] 10 mg PO AC-BID Furosemide [Lasix] 40 mg PO DAILY DULoxetine HCL [Cymbalta] 30 mg PO DAILY Digoxin [Lanoxin] 125 mcg PO DAILY ARIPiprazole [Abilify] 2 mg PO HS ALPRAZolam [Xanax] 0.5 mg PO BID PRN PRN Reason: Anxiety Levothyroxine Sodium [Synthroid] 125 mcg PO DAILY Atorvastatin [Lipitor] 40 mg PO DAILY Fluticasone Nasal [place] [Flonase Nasal [place]] 1 spr EA NOSTRIL DAILY Tamsulosin [Flomax] 0.4 mg PO DAILY Meclizine [Antivert] 12.5 mg PO TID #0 Vitamin D3 50,000iu 50,000 unit PO Q7D Ipratropium-Albuterol Nebulize [Duoneb 0.5 mg-3 mg/3 ml Soln] 3 ml INHALATION RT-TID Discontinued Diphenox-Atrop 2.5-0.025 mg [Lomotil] 2 tab PO QID PRN PRN Reason: Diarrhea Omeprazole 20 mg PO DAILY predniSONE See Taper PO DAILY No Action Aspirin EC [Ecotrin Low Dose] 81 mg PO DAILY Discharge Medication List ALPRAZolam [Xanax] 0.5 mg PO BID PRN 01/21/17 [History] ARIPiprazole [Abilify] 2 mg PO HS 01/21/17 [History] Aspirin EC [Ecotrin Low Dose] 81 mg PO DAILY 01/21/17 [History] Atorvastatin [Lipitor] 40 mg PO DAILY 01/21/17 [History] DULoxetine HCL [Cymbalta] 30 mg PO DAILY 01/21/17 [History] Digoxin [Lanoxin] 125 mcg PO DAILY 01/21/17 [History] Furosemide [Lasix] 40 mg PO DAILY 01/21/17 [History] Levothyroxine Sodium [Synthroid] 125 mcg PO DAILY 01/21/17 [History] Memantine [Namenda] 10 mg PO AC-BID 01/21/17 [History] Metoprolol Succinate (ER) [Toprol XL] 25 mg PO BID 01/21/17 [History] Mirtazapine [Remeron] 30 mg PO HS 01/21/17 [History] Nitroglycerin Sl Tabs [Nitrostat] 0.4 mg SUBLINGUAL Q5M PRN 01/21/17 [History] Fluticasone Nasal [place] [Flonase Nasal [place]] 1 spr EA NOSTRIL DAILY 04/09/19 [History] Tamsulosin [Flomax] 0.4 mg PO DAILY 04/09/19 [History] Meclizine [Antivert] 12.5 mg PO TID #0 10/24/19 [Rx] Ipratropium-Albuterol Nebulize [Duoneb 0.5 mg-3 mg/3 ml Soln] 3 ml INHALATION RT-TID 10/29/19 [History] Vitamin D3 50,000iu 50,000 unit PO Q7D 10/29/19 [History] Acetaminophen Tab [Tylenol] 650 mg PO Q4HR PRN tab 11/02/19 [Rx] Omeprazole [PriLOSEC] 20 mg PO AC-BID #60 cap 11/02/19 [Rx] Follow up Appointment(s)/Referral(s): Fercho Bryant MD [Medical Doctor] - 11/09/19 12:40 pm Vinay Harris MD [STAFF PHYSICIAN] - 1 Week (You will need PET scan as outpatient to rule out cancer recurrence. The office will call you with an appointment. ) Kelley Narayanan DO [STAFF PHYSICIAN] - 11/16/19 11:15 am (For your aortic aneurysm. ) Harvinder Jimenez MD [Primary Care Provider] - 1-2 days (Left a voicemail with the office. ) Discharge Disposition: HOME WITH HOME HEALTH SERVICES
--- NOTE | 2019-11-03 10:24 | CDI ---
Documentation Clarification Form Date: 11/03/19 From: Sherly Pizarro Phone: If you have a question about this query, please contact Irena Rodriguez, Card Puncher at [phone] between 8am and 5pm. Admit Date: 10/30/19 Discharge Date:11/02/19 Patient Name: Maxime Cavanaugh Visit Number: [id number] ATTENTION: The Clinical Documentation Specialists (CDI) and [facility] Coding Staff appreciate your assistance in clarifying documentation. Please respond to the clarification below the line at the bottom and electronically sign. The CDI & [facility] Coding staff will review the response and follow-up if needed. Please note: Queries are made part of the Legal Health Record. If you have any questions, please contact the author of this message via ITS. Dear Dr. Charles The patient presented with the following: Acute lower GI fresh bleeding History/Risk Factors: History of colon cancer, abdominal aortic aneurysm Clinical Indicators: GI bleeding Lab findings: Hgb 12.4, hct 39.6 on admit. 10/31 hgb 9.8, Hct 31.0, Stool occult blood - positive Colonoscopy: Rectal stricture, descending colon polyp, diverticulosis Vital Signs: T. 97.9, P. 122, R 16, BP 149/80 Treatment: poylpectomy In your professional opinion, can you please clarify the cause of the GI bleed? Diverticulosis Colon Polyp Rectal stricture Other, please specify Unable to determine Unable to determine, possible diverticulosis, versus others MTDD
== END 2019-11-02 14:16 | disposition home or self-care (01) | DRG 378 ==
LOC: EC 22:22 → 2SICU 10-30 02:26 → 3SCARD 11-01 05:41
PROVIDERS: ADMIT Hospitalist; ATTEND Hospitalist
PROC: 30233N1 Transfusion of Nonautologous Red Blood Cells into Peripheral Vein, Percutaneous Approach (ICD-10-PCS; 2019-10-30)
PROC: 0DBP8ZX Excision of Rectum, Via Natural or Artificial Opening Endoscopic, Diagnostic (ICD-10-PCS; principal; 2019-10-31 08:40)
PROC: 0DBM8ZX Excision of Descending Colon, Via Natural or Artificial Opening Endoscopic, Diagnostic (ICD-10-PCS; principal; 2019-10-31 08:40)
DX: K57.31 Diverticulosis of large intestine without perforation or abscess with bleeding (principal); D62 Acute posthemorrhagic anemia; F03.90 Unspecified dementia, unspecified severity, without behavioral disturbance, psychotic disturbance, mood disturbance, and anxiety; N18.3 Chronic kidney disease, stage 3 (moderate); I71.2 Thoracic aortic aneurysm, without rupture; K63.5 Polyp of colon; D37.4 Neoplasm of uncertain behavior of colon; E03.9 Hypothyroidism, unspecified; E78.5 Hyperlipidemia, unspecified; F32.9 Major depressive disorder, single episode, unspecified; I12.9 Hypertensive chronic kidney disease with stage 1 through stage 4 chronic kidney disease, or unspecified chronic kidney disease; I25.10 Atherosclerotic heart disease of native coronary artery without angina pectoris; I25.2 Old myocardial infarction; I71.4 Abdominal aortic aneurysm, without rupture; J44.9 Chronic obstructive pulmonary disease, unspecified; K40.90 Unilateral inguinal hernia, without obstruction or gangrene, not specified as recurrent; Z11.59 Encounter for screening for other viral diseases; K42.9 Umbilical hernia without obstruction or gangrene; K62.4 Stenosis of anus and rectum; N40.0 Benign prostatic hyperplasia without lower urinary tract symptoms; R11.0 Nausea; R42 Dizziness and giddiness; Z79.82 Long term (current) use of aspirin; Z79.890 Hormone replacement therapy; Z79.899 Other long term (current) drug therapy; Z95.5 Presence of coronary angioplasty implant and graft; Z95.0 Presence of cardiac pacemaker; Z87.891 Personal history of nicotine dependence; Z85.048 Personal history of other malignant neoplasm of rectum, rectosigmoid junction, and anus; Z88.8 Allergy status to other drugs, medicaments and biological substances; Z82.49 Family history of ischemic heart disease and other diseases of the circulatory system; Z81.1 Family history of alcohol abuse and dependence; Z87.01 Personal history of pneumonia (recurrent); Z91.81 History of falling
CPT/HCPCS: 36415; 36430; 45380; 45385; 71045; 74176; 80048; 80053; 82272; 82378; 82607; 82728; 82746; 83540; 83550; 83605; 83615; 83921; 84145; 84484; 85025; 85045; 85610; 85730; 86850; 86900; 86901; 86920; 88305; 93005; 94640; 96360; 96361; 96374; 96375; 99285

== ENCOUNTER → 2019-11-14 | Outpatient (CLI) | payer MEDICARE, OTHER ==
--- NOTE | 2019-11-23 16:45 | ENG ---
ELECTRONYSTAGMOGRAM REPORT VIDEO-ASSISTED ELECTRONYSTAGMOGRAM: DATE OF SERVICE: 11/14/2019 VNG FINDINGS: Saccades shows intact peak velocities with borderline accuracies and impaired latencies. Gaze with fixation shows no nystagmus in any of the directions of gaze, including centrally with vision denied. Tracking showed no significant break-ups. Optokinetic nystagmus: Bolter Helper notes patient could not understand instructions. Static position testing in 4 different positions seated, supine, head right and head left with eyes open and then with vision denied were negative for any nystagmus. Dynamic position testing: Not done due to patient limitations. Caloric testing: Technical difficulties arose and the patient could not hear anything per health information technician notes once the hearing aids were taken out and could not follow directions. 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 Other features of this VNG that were able to be performed were unremarkable. Could not exclude benign positional vertigo based on patient not being able to participate in dynamic position testing or the calorics. Vestibulopathy not excluded. Clinical correlation necessary. ABELINO / IJN: [id number] /
== END | disposition home or self-care (01) ==
LOC: NEUROMAIN 07:59
PROVIDERS: ATTEND Otolaryngology
DX: R42 Dizziness and giddiness (principal)
CPT/HCPCS: 92540

== ENCOUNTER 2020-03-25 16:01 | Inpatient (IN) | payer MEDICARE, OTHER ==
[2020-03-25] MEDS ORDERED: ACETAMINOPHEN TAB 325 MG TAB PO STA (16:17)
[2020-03-25] MEDS ORDERED: ALBUTEROL HFA INHALER INHALATION STA (16:17)
--- NOTE | 2020-03-25 16:26 | ED ---
SOB HPI - General Chief Complaint: Shortness of Breath Stated Complaint: possible stemi Time Seen by Provider: 03/25/20 16:01 Source: patient, EMS, RN notes reviewed, old records reviewed Mode of arrival: EMS Limitations: no limitations - History of Present Illness Initial Comments: This is a 89-year-old male with a history of multiple medical problems including pacemaker COPD hypertension repaired thoracic aortic aneurysm chronic kidney disease who presents by EMS with complaints of shortness of breath. He apparently has been short of breath or past week getting worse he has been recently apparently exposed to Covid 19, he apparently was found not wearing his oxygen which she normally wears 2 L he was cyanotic and minimally responsive after he was placed on oxygen his saturation improved from 70% to 94-95%. He has had a cough and fever today. No chest pain no description of any phlegm no focal deficits no other modifying factors patient was more alert after oxygen application. MD Complaint: shortness of breath, cough - Related Data Home Medications Medication Instructions Recorded Confirmed ALPRAZolam [Xanax] 0.5 mg PO BID PRN 01/21/17 03/25/20 Aspirin EC [Ecotrin Low Dose] 81 mg PO DAILY 01/21/17 03/25/20 Atorvastatin [Lipitor] 40 mg PO DAILY 01/21/17 03/25/20 DULoxetine HCL [Cymbalta] 30 mg PO BID 01/21/17 03/25/20 Digoxin [Lanoxin] 125 mcg PO DAILY 01/21/17 03/25/20 Furosemide [Lasix] 40 mg PO DAILY 01/21/17 03/25/20 Levothyroxine Sodium [Synthroid] 125 mcg PO DAILY 01/21/17 03/25/20 Memantine [Namenda] 10 mg PO AC-BID 01/21/17 03/25/20 Metoprolol Succinate (ER) [Toprol 25 mg PO BID 01/21/17 03/25/20 XL] Mirtazapine [Remeron] 30 mg PO HS 01/21/17 03/25/20 Nitroglycerin Sl Tabs [Nitrostat] 0.4 mg SUBLINGUAL Q5M PRN 01/21/17 03/25/20 Fluticasone Nasal [place] [Flonase 1 spr EA NOSTRIL DAILY 04/09/19 03/25/20 Nasal [place]] Tamsulosin [Flomax] 0.4 mg PO DAILY 04/09/19 03/25/20 Ipratropium-Albuterol Nebulize 3 ml INHALATION RT-QID 10/29/19 03/25/20 [Duoneb 0.5 mg-3 mg/3 ml Soln] Vitamin D3 50,000iu 50,000 unit PO Q7D 10/29/19 03/25/20 ARIPiprazole [Abilify] 10 mg PO HS 03/25/20 03/25/20 Acetaminophen Tab [Tylenol] 650 mg PO Q4HR PRN 03/25/20 03/25/20 Diphenoxylate HCl/Atropine 2 tab PO QID PRN 03/25/20 03/25/20 [Lomotil 2.5-0.025 mg Tablet] Meclizine [Antivert] 25 mg PO TID 03/25/20 03/25/20 oxyCODONE-APAP 10-325MG [Percocet 1 tab PO TID PRN 03/25/20 03/25/20 10-325 mg] Previous Rx's Medication Instructions Recorded Omeprazole [PriLOSEC] 20 mg PO AC-BID #60 cap 11/02/19 Allergies Allergy/AdvReac Type Severity Reaction Status Date / Time cephalexin [From Keflex] AdvReac Nausea & Verified 03/25/20 16:24 Vomiting & Diarrhea warfarin [From Coumadin] AdvReac Unknown Verified 03/25/20 16:24 Review of Systems ROS Statement: Those systems with pertinent positive or pertinent negative responses have been documented in the HPI. ROS Other: All systems not noted in ROS Statement are negative. Past Medical History Past Medical History: Chest Pain / Angina, COPD, Dementia, Hyperlipidemia, Hypertension, Myocardial Infarction ([place]), Renal Disease Additional Past Medical History / Comment(s): aneurysm, colon cancer Last Myocardial Infarction Date:: unknown History of Any Multi-Drug Resistant Organisms: None Reported Past Surgical History: Heart Catheterization With Stent Additional Past Surgical History / Comment(s): aneurysm repair to heart and abd Past Anesthesia/Blood Transfusion Reactions: No Reported Reaction Date of Last Stent Placement:: unknown Type of Cardiac Device: Permanent Pacemaker Device Placement Date:: unknown Past Psychological History: Depression Smoking Status: Never smoker Past Alcohol Use History: None Reported Past Drug Use History: None Reported - Past Family History Father Additional Family Medical History / Comment(s): alcoholic Mother Additional Family Medical History / Comment(s): anerysm, of [place] General Exam - General Exam Comments Initial Comments: This is a well-developed asthenic appearing male who is awake alert oriented 3 at this time Limitations: no limitations General appearance: alert, anxious, in distress Head exam: Present: atraumatic, normocephalic, normal inspection Eye exam: Present: normal appearance, PERRL, EOMI. Absent: scleral icterus, conjunctival injection, periorbital swelling ENT exam: Present: mucous membranes dry Neck exam: Present: normal inspection, full ROM, other. Absent: tenderness, m eningismus, lymphadenopathy Respiratory exam: Present: wheezes (No stridor JVD or bruits), rhonchi, accessory muscle use, decreased breath sounds. Absent: respiratory distress, rales, stridor, chest wall tenderness Cardiovascular Exam: Present: regular rate, normal rhythm, normal heart sounds. Absent: systolic murmur, diastolic murmur, rubs, gallop, clicks GI/Abdominal exam: Present: soft, normal bowel sounds. Absent: distended, tenderness, guarding, rebound, rigid Extremities exam: Present: normal inspection, full ROM, normal capillary refill. Absent: tenderness, pedal edema, joint swelling, calf tenderness Back exam: Present: normal inspection Neurological exam: Present: alert, oriented X3, CN II-XII intact Psychiatric exam: Present: normal affect, normal mood Skin exam: Present: warm, dry, intact, normal color. Absent: rash Course Vital Signs 03/25/20 03/25/20 16:04 17:29 Temperature 100.5 F H Pulse Rate 90 86 Respiratory 24 17 Rate Blood Pressure 138/83 94/66 O2 Sat by Pulse 98 96 Oximetry - Reevaluation(s) Reevaluation #1: 03/25/20 17:36 Evaluation patient reveals that he feels improved after the inhaler treatment and oxygen. Medical Decision Making - Medical Decision Making I did discuss the findings with the patient as well as with Dr. Guevara and Dr. Montgomery. Patient does have elevated troponin as well as d-dimer he has renal insufficiency with a GFR of 29 and will require VQ scan. Hypokalemia is also present. The markers for Covid 19 are present though the official results are not available yet. At this time there does not appear to be a bacterial etiology of the presentation and elevated lactic acid. - Lab Data Result diagrams: 03/25/20 16:19 03/25/20 16:17 Lab Results 03/25/20 03/25/20 03/25/20 Range/Units 16:17 16:17 16:19 WBC 10.4 (3.8-10.6) k/uL RBC 4.48 (4.30-5.90) m/uL Hgb 12.7 L (13.0-17.5) gm/dL Hct 37.6 L (39.0-53.0) % MCV 84.1 (80.0-100.0) fL MCH 28.3 (25.0-35.0) pg MCHC 33.7 (31.0-37.0) g/dL RDW 16.4 H (11.5-15.5) % Plt Count 173 (150-450) k/uL MPV 7.4 Neutrophils % 92 % Lymphocytes % 2 % Monocytes % 4 % Eosinophils % 0 % Basophils % 1 % Neutrophils # 9.5 H (1.3-7.7) k/uL Lymphocytes # 0.3 L (1.0-4.8) k/uL Monocytes # 0.4 (0-1.0) k/uL Eosinophils # 0.0 (0-0.7) k/uL Basophils # 0.1 (0-0.2) k/uL Anisocytosis Slight PT (9.0-12.0) sec INR (<1.2) APTT (22.0-30.0) sec D-Dimer (<0.60) mg/L FEU Sodium 137 (137-145) mmol/L Potassium 3.1 L (3.5-5.1) mmol/L Chloride 109 H (98-107) mmol/L Carbon Dioxide 17 L (22-30) mmol/L Anion Gap 11 mmol/L BUN 41 H (9-20) mg/dL Creatinine 1.97 H (0.66-1.25) mg/dL Est GFR (CKD-EPI)AfAm 34 (>60 ml/min/1.73 sqM) Est GFR (CKD-EPI)NonAf 29 (>60 ml/min/1.73 sqM) Glucose 136 H (74-99) mg/dL Plasma Lactic Acid Raul (0.7-2.0) mmol/L Calcium 9.8 (8.4-10.2) mg/dL Magnesium 2.2 (1.6-2.3) mg/dL Total Bilirubin 1.0 (0.2-1.3) mg/dL AST 83 H (17-59) U/L ALT 50 H (4-49) U/L Alkaline Phosphatase 98 (38-126) U/L Lactate Dehydrogenase 1005 H (313-618) U/L Creatine Kinase 655 H (55-170) U/L Troponin I (0.000-0.034) ng/mL C-Reactive Protein 79.1 H (<10.0) mg/L NT-Pro-B Natriuret Pep pg/mL Total Protein 6.6 (6.3-8.2) g/dL Albumin 3.6 (3.5-5.0) g/dL Digoxin 0.4 ng/mL Influenza Type A RNA (Not Detectd) Influenza Type B (PCR) (Not Detectd) 03/25/20 03/25/20 03/25/20 Range/Units 16:19 16:19 16:19 WBC (3.8-10.6) k/uL RBC (4.30-5.90) m/uL Hgb (13.0-17.5) gm/dL Hct (39.0-53.0) % MCV (80.0-100.0) fL MCH (25.0-35.0) pg MCHC (31.0-37.0) g/dL RDW (11.5-15.5) % Plt Count (150-450) k/uL MPV Neutrophils % % Lymphocytes % % Monocytes % % Eosinophils % % Basophils % % Neutrophils # (1.3-7.7) k/uL Lymphocytes # (1.0-4.8) k/uL Monocytes # (0-1.0) k/uL Eosinophils # (0-0.7) k/uL Basophils # (0-0.2) k/uL Anisocytosis PT 11.2 (9.0-12.0) sec INR 1.1 (<1.2) APTT 24.6 (22.0-30.0) sec D-Dimer 30.37 H (<0.60) mg/L FEU Sodium (137-145) mmol/L Potassium (3.5-5.1) mmol/L Chloride (98-107) mmol/L Carbon Dioxide (22-30) mmol/L Anion Gap mmol/L BUN (9-20) mg/dL Creatinine (0.66-1.25) mg/dL Est GFR (CKD-EPI)AfAm (>60 ml/min/1.73 sqM) Est GFR (CKD-EPI)NonAf (>60 ml/min/1.73 sqM) Glucose (74-99) mg/dL Plasma Lactic Acid Raul 3.5 H* (0.7-2.0) mmol/L Calcium (8.4-10.2) mg/dL Magnesium (1.6-2.3) mg/dL Total Bilirubin (0.2-1.3) mg/dL AST (17-59) U/L ALT (4-49) U/L Alkaline Phosphatase (38-126) U/L Lactate Dehydrogenase (313-618) U/L Creatine Kinase (55-170) U/L Troponin I 0.156 H* (0.000-0.034) ng/mL C-Reactive Protein (<10.0) mg/L NT-Pro-B Natriuret Pep pg/mL Total Protein (6.3-8.2) g/dL Albumin (3.5-5.0) g/dL Digoxin ng/mL Influenza Type A RNA (Not Detectd) Influenza Type B (PCR) (Not Detectd) 03/25/20 03/25/20 Range/Units 16:19 16:19 WBC (3.8-10.6) k/uL RBC (4.30-5.90) m/uL Hgb (13.0-17.5) gm/dL Hct (39.0-53.0) % MCV (80.0-100.0) fL MCH (25.0-35.0) pg MCHC (31.0-37.0) g/dL RDW (11.5-15.5) % Plt Count (150-450) k/uL MPV Neutrophils % % Lymphocytes % % Monocytes % % Eosinophils % % Basophils % % Neutrophils # (1.3-7.7) k/uL Lymphocytes # (1.0-4.8) k/uL Monocytes # (0-1.0) k/uL Eosinophils # (0-0.7) k/uL Basophils # (0-0.2) k/uL Anisocytosis PT (9.0-12.0) sec INR (<1.2) APTT (22.0-30.0) sec D-Dimer (<0.60) mg/L FEU Sodium (137-145) mmol/L Potassium (3.5-5.1) mmol/L Chloride (98-107) mmol/L Carbon Dioxide (22-30) mmol/L Anion Gap mmol/L BUN (9-20) mg/dL Creatinine (0.66-1.25) mg/dL Est GFR (CKD-EPI)AfAm (>60 ml/min/1.73 sqM) Est GFR (CKD-EPI)NonAf (>60 ml/min/1.73 sqM) Glucose (74-99) mg/dL Plasma Lactic Acid Raul (0.7-2.0) mmol/L Calcium (8.4-10.2) mg/dL Magnesium (1.6-2.3) mg/dL Total Bilirubin (0.2-1.3) mg/dL AST (17-59) U/L ALT (4-49) U/L Alkaline Phosphatase (38-126) U/L Lactate Dehydrogenase (313-618) U/L Creatine Kinase (55-170) U/L Troponin I (0.000-0.034) ng/mL C-Reactive Protein (<10.0) mg/L NT-Pro-B Natriuret Pep 1990 pg/mL Total Protein (6.3-8.2) g/dL Albumin (3.5-5.0) g/dL Digoxin ng/mL Influenza Type A RNA Not Detected (Not Detectd) Influenza Type B (PCR) Not Detected (Not Detectd) - EKG Data -: EKG Interpreted by Me EKG Comments: Sinus rhythm a 92 [place] interval 204 QRS duration 102 QT since QTC 350/442 with anterior fascicular block left ventricular hypertrophy old anterior lateral infarct this is compared with EKG dated 10/29/19 - Radiology Data Radiology results: report reviewed (Imaging reviewed no acute findings noted.), image reviewed Critical Care Time Critical Care Time: Yes Total Critical Care Time: 39 Critical Care Time: 39 minutes of critical care time which includes initial presentation with history physical labs x-rays discussed with paramedics upon arrival. Reevaluation the patient to responsive therapy review of old charting discussion with the admitting physician Dr. Guevara as well as notification of Dr. Montgomery. Admission orders and documentation of the above Disposition Clinical Impression: Acute exacerbation of chronic obstructive pulmonary disease, Acute respiratory distress syndrome in adult, Non-STEMI (non-ST elevated myocardial infarction), COVID-19, Hypokalemia, Viral syndrome, Hypoxemia, Elevated troponin, Elevated d- dimer, Chronic kidney disease Disposition: ADMITTED IP TO THIS HOSP Condition: Fair Referrals: Harvinder iJmenez MD [Primary Care Provider] - 1-2 days
[2020-03-25 16:28] LABS: Anisocytosis Slight; Basophils # (A) 0.1 k/uL (0-0.2); Basophils % (A) 1 %; Eosinophils % (A) 0 %; HCT 37.6 % (39.0-53.0); HGB 12.7 gm/dL (13.0-17.5); Lymphocytes # (A) 0.3 k/uL (1.0-4.8); Lymphocytes % (A) 2 %; MCH 28.3 pg (25.0-35.0); MCHC 33.7 g/dL (31.0-37.0); MCV 84.1 fL (80.0-100.0); Mean Platelet Volume 7.4; Monocytes # (A) 0.4 k/uL (0-1.0); Monocytes % (A) 4 %; Neutrophils # (A) 9.5 k/uL (1.3-7.7); Neutrophils % (A) 92 %; Platelet Count 173 k/uL (150-450); RBC 4.48 m/uL (4.30-5.90); RDW 16.4 % (11.5-15.5); WBC 10.4 k/uL (3.8-10.6)
[2020-03-25 16:40] LABS: Albumin 3.6 g/dL (3.5-5.0); C Reactive Protein 79.1 mg/L (<10.0); Calcium 9.8 mg/dL (8.4-10.2); Magnesium 2.2 mg/dL (1.6-2.3); Potassium 3.1 mmol/L (3.5-5.1); Total Protein 6.6 g/dL (6.3-8.2)
[2020-03-25 16:52] LABS: INR 1.1 (<1.2); Partial Thromboplastin Time 24.6 sec (22.0-30.0); Prothrombin Time 11.2 sec (9.0-12.0)
[2020-03-25] MEDS ORDERED: SODIUM CHLORIDE 0.9% 1,000 ML IV STA ×2 (17:00)
[2020-03-25] MEDS ORDERED: POTASSIUM CHLORIDE 20 MEQ in WATER FOR INJECTION 1 100ML.BAG IVPB STA (17:01)
--- NOTE | 2020-03-25 17:01 | XR ---
EXAMINATION TYPE: XR chest 1V portable DATE OF EXAM: 03/25/2020 COMPARISON: 10/30/2019 HISTORY: Pneumonia TECHNIQUE: Single view FINDINGS: There is no heart failure nor confluent pneumonic infiltrate. There is coarsening of inters titial markings. There is aneurysm of the descending thoracic aorta with stent. There is left axillar y pacemaker. 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 No heart failure. No change compared to old exa m.
[2020-03-25 17:08] LABS: D-Dimer 30.37 mg/L FEU (<0.60)
[2020-03-25] MEDS ORDERED: FAMOTIDINE 20 MG/2 ML VIAL IV STA (17:11)
[2020-03-25] MEDS ORDERED: HEPARIN SODIUM,PORCINE 10,000 UNIT/ML 1 ML VIAL IV ONE (17:19)
[2020-03-25] MEDS ORDERED: HEPARIN SODIUM,PORCINE 5,000 UNIT/ML 1 ML VIAL IV PRN (17:19)
[2020-03-25] MEDS ORDERED: NITROGLYCERIN SL TABS 0.4 MG TAB SUBLINGUAL PRN (17:46)
[2020-03-25] MEDS ORDERED: DEXAMETHASONE SOD PHOSPHATE 4 MG/ML 1 ML VIAL IV STA (17:53)
[2020-03-25] MEDS ORDERED: oxyCODONE-APAP 10-325MG 1 EACH TAB PO PRN (17:54)
[2020-03-25] MEDS: HEPARIN SOD,PORK IN 0.45% NACL 25,000 UNIT in 0.45% NACL 1 250ML.BAG IV SCH (17:57)
[2020-03-25] MEDS ORDERED: IPRATROPIUM-ALBUTEROL 3 ML NEB INHALATION SCH (20:00)
[2020-03-25] MEDS: MIRTAZAPINE 15 MG TAB PO SCH (22:07)
[2020-03-25] MEDS: DULoxetine HCL 30 MG CAPSULE.DR PO SCH (22:07)
[2020-03-25] MEDS: MECLIZINE 25 MG TAB PO SCH (22:07)
[2020-03-25] MEDS: METOPROLOL SUCCINATE (ER) 25 MG TAB.ER.24H PO SCH (22:08)
[2020-03-25 23:07] LABS: Ferritin 346.1 ng/mL (22.0-322.0)
[2020-03-26] MEDS: LEVOTHYROXINE 125 MCG TAB PO SCH (06:32)
[2020-03-26] MEDS: MEMANTINE 10 MG TAB PO SCH ×2 (06:32→17:34)
[2020-03-26] MEDS: PANTOPRAZOLE 40 MG TABLET PO SCH (06:32)
[2020-03-26] MEDS: ALBUTEROL HFA INHALER INHALATION SCH ×4 (07:49→19:38)
[2020-03-26 08:40] LABS: Anisocytosis Slight; Basophils % (A) 0 %; Eosinophils % (A) 0 %; HCT 40.8 % (39.0-53.0); HGB 13.1 gm/dL (13.0-17.5); Lymphocytes # (A) 0.6 k/uL (1.0-4.8); Lymphocytes % (A) 4 %; MCH 27.4 pg (25.0-35.0); MCHC 32.1 g/dL (31.0-37.0); MCV 85.2 fL (80.0-100.0); Mean Platelet Volume 7.5; Monocytes # (A) 0.4 k/uL (0-1.0); Monocytes % (A) 4 %; Neutrophils # (A) 11.7 k/uL (1.3-7.7); Neutrophils % (A) 92 %; Platelet Count 208 k/uL (150-450); RBC 4.78 m/uL (4.30-5.90); RDW 16.7 % (11.5-15.5); WBC 12.8 k/uL (3.8-10.6)
[2020-03-26] MEDS ORDERED: FUROSEMIDE 10 MG/ML 4 ML VIAL IV STA (08:57)
[2020-03-26] MEDS ORDERED: FAMOTIDINE 20 MG/2 ML VIAL IV SCH (09:00)
[2020-03-26] MEDS ORDERED: dexAMETHasone 2 MG TAB PO SCH (09:00)
[2020-03-26] MEDS ORDERED: FLUTICASONE 50MCG/SPRAY NASAL 16GM EA NOSTRIL SCH (09:00)
[2020-03-26] MEDS ORDERED: FUROSEMIDE 40 MG TAB PO SCH (09:00)
[2020-03-26] MEDS ORDERED: ASPIRIN 325 MG TAB PO SCH (09:00)
[2020-03-26 09:02] LABS: Cholesterol 104 mg/dL (<200); HDL Cholesterol 41 mg/dL (40-60); LDL Cholesterol,Calculated 49 mg/dL (0-99); Triglycerides 72 mg/dL (<150)
[2020-03-26] MEDS: MECLIZINE 25 MG TAB PO SCH ×3 (09:10→21:39)
[2020-03-26] MEDS: TAMSULOSIN 0.4 MG CAP.ER.24H PO SCH (09:10)
[2020-03-26] MEDS: LOSARTAN 25 MG TAB PO SCH (09:11)
[2020-03-26] MEDS: ZINC SULFATE 220 MG CAP PO SCH (09:11)
[2020-03-26] MEDS: ASCORBIC ACID 500 MG TAB PO SCH (09:11)
[2020-03-26] MEDS: METOPROLOL SUCCINATE (ER) 25 MG TAB.ER.24H PO SCH ×2 (09:11→21:39)
[2020-03-26] MEDS: DIGOXIN 125 MCG TAB PO SCH (09:11)
[2020-03-26] MEDS: DULoxetine HCL 30 MG CAPSULE.DR PO SCH ×2 (09:11→21:39)
[2020-03-26] MEDS: ATORVASTATIN 40 MG TAB PO SCH (09:11)
[2020-03-26] MEDS: ASPIRIN 81 MG PO SCH (09:11)
[2020-03-26] MEDS: CHOLECALCIFEROL 400 UNIT TAB PO SCH (09:12)
[2020-03-26 09:23] VITALS: BMI 25.4
--- NOTE | 2020-03-26 09:55 | P.CNPUL ---
History of Present Illness Consult date: 03/26/20 Reason for consult: dyspnea History of present illness: 10-year-old patient underwent emergency department yesterday because of worsening shortness of breath. He was recently exposed to COVID 19, and he has been getting progressively weak. He was also having some diarrhea. Many emergency department, he was not requiring oxygen and his pulse ox was in the low 70s. He was placed on 2 L of oxygen by nasal cannula. His pulse ox is 94%. He had some limited cough. He has also some fever. No chest pain. He is a poor historian. He has multiple medical problems and comorbidities. He lives at home with his . Lymph. Her white cell count is 12.8. He had some lymphopenia and. His d-dimer was 30.3. His troponins were 0.0.2 and 01 respectively and the patient was placed on IV heparin. The patient's creatinine was up to 1.97 with a BUN of 41.His urine was 17. Lactic acid level III.5. Ferritin was 46, AST 83 with an ALT of 50. He was as 79 with a LDH level about 1005. His temperature was 105 by EMS.the patient typically wears 2 L at home and currently is on 4 L. X-ray showing some cardiomegaly. There is a aneurysm of the ascending aorta and there is also endovascular stent grafting. There is also a left-sided pacemaker. No acute infiltration. Review of Systems poor historian ROS unobtainable: due to mental status Past Medical History Past Medical History: Chest Pain / Angina, COPD, Dementia, Hyperlipidemia, Hypertension, Myocardial Infarction ([place]), Renal Disease Additional Past Medical History / Comment(s): aneurysm, colon cancer Last Myocardial Infarction Date:: unknown History of Any Multi-Drug Resistant Organisms: None Reported Past Surgical History: Heart Catheterization With Stent Additional Past Surgical History / Comment(s): aneurysm repair to heart and abd Past Anesthesia/Blood Transfusion Reactions: No Reported Reaction Date of Last Stent Placement:: unknown Type of Cardiac Device: Permanent Pacemaker Device Placement Date:: unknown Past Psychological History: Depression Smoking Status: Never smoker Past Alcohol Use History: None Reported Past Drug Use History: None Reported - Past Family History Father Additional Family Medical History / Comment(s): alcoholic Mother Additional Family Medical History / Comment(s): anerysm, of [place] Medications and Allergies Home Medications Medication Instructions Recorded Confirmed Type ALPRAZolam [Xanax] 0.5 mg PO BID PRN 01/21/17 03/25/20 History Aspirin EC [Ecotrin Low Dose] 81 mg PO DAILY 01/21/17 03/25/20 History Atorvastatin [Lipitor] 40 mg PO DAILY 01/21/17 03/25/20 History DULoxetine HCL [Cymbalta] 30 mg PO BID 01/21/17 03/25/20 History Digoxin [Lanoxin] 125 mcg PO DAILY 01/21/17 03/25/20 History Furosemide [Lasix] 40 mg PO DAILY 01/21/17 03/25/20 History Levothyroxine Sodium [Synthroid] 125 mcg PO DAILY 01/21/17 03/25/20 History Memantine [Namenda] 10 mg PO AC-BID 01/21/17 03/25/20 History Metoprolol Succinate (ER) [Toprol 25 mg PO BID 01/21/17 03/25/20 History XL] Mirtazapine [Remeron] 30 mg PO HS 01/21/17 03/25/20 History Nitroglycerin Sl Tabs [Nitrostat] 0.4 mg SUBLINGUAL Q5M PRN 01/21/17 03/25/20 History Fluticasone Nasal [place] [Flonase 1 spr EA NOSTRIL DAILY 04/09/19 03/25/20 History Nasal [place]] Tamsulosin [Flomax] 0.4 mg PO DAILY 04/09/19 03/25/20 History Ipratropium-Albuterol Nebulize 3 ml INHALATION RT-QID 10/29/19 03/25/20 History [Duoneb 0.5 mg-3 mg/3 ml Soln] Vitamin D3 50,000iu 50,000 unit PO Q7D 10/29/19 03/25/20 History Omeprazole [PriLOSEC] 20 mg PO AC-BID #60 cap 11/02/19 03/25/20 Rx ARIPiprazole [Abilify] 10 mg PO HS 03/25/20 03/25/20 History Acetaminophen Tab [Tylenol] 650 mg PO Q4HR PRN 03/25/20 03/25/20 History Diphenoxylate HCl/Atropine 2 tab PO QID PRN 03/25/20 03/25/20 History [Lomotil 2.5-0.025 mg Tablet] Meclizine [Antivert] 25 mg PO TID 03/25/20 03/25/20 History oxyCODONE-APAP 10-325MG [Percocet 1 tab PO TID PRN 03/25/20 03/25/20 History 10-325 mg] Allergies Allergy/AdvReac Type Severity Reaction Status Date / Time cephalexin [From Keflex] AdvReac Nausea & Verified 03/25/20 16:24 Vomiting & Diarrhea warfarin [From Coumadin] AdvReac Unknown Verified 03/25/20 16:24 Physical Exam Vitals: Vital Signs Temp Pulse Pulse Resp BP BP Pulse Ox 03/26/20 09:23 20 91 L 03/26/20 08:00 97.6 F 20 162/73 78 L 03/26/20 04:00 97.4 F L 18 146/87 95 03/26/20 02:00 18 03/26/20 00:00 97.8 F 18 137/81 95 03/25/20 23:00 79 18 119/87 98 03/25/20 20:26 82 16 03/25/20 20:14 82 16 03/25/20 20:00 97.8 F 73 18 137/81 95 03/25/20 18:04 97.8 F 73 18 137/81 95 03/25/20 18:00 97.6 F 84 18 108/75 95 03/25/20 17:29 86 17 94/66 96 03/25/20 16:04 100.5 F H 90 24 138/83 98 Intake and Output 03/25/20 03/26/20 03/26/20 22:59 06:59 14:59 Intake Total 101.647 87.974 Output Total 500 Balance -398.353 87.974 Intake: Intake, IV Titration 101.647 87.974 Amount Heparin Sod,Pork in 0.45% 101.647 87.974 NaCl 25,000 unit In 0.45 % NaCl 1 250ml.bag @ 18 UNITS/KG/HR 14.696 mls/hr IV .Q17H1M [facility] Rx#: [id number] Output: Urine 500 Other: Voiding Method Urinal # Voids 1 Weight 81.647 kg 80.6 kg 80.6 kg The patient appeared well nourished and normally developed. Vital signs as documented. Head exam is unremarkable. No scleral icterus or corneal arcus noted. Neck is without jugular venous distension, thyromegaly, or carotid bruits. Carotid upstrokes are brisk bilaterally. Lungs are clear to auscultation and percussion. Cardiac exam reveals the PMI to be normally sized and situated. Rhythm is regular. First and second heart sounds normal. No murmurs, rubs or gallops. Abdominal exam reveals normal bowel sounds, no masses, no organomegaly and no aortic enlargement. There is a scar in the mid abdomen along with an umbilical hernia which is easily reducible. No direct tenderness. No rebound tenderness. No guarding. Extremities are nonedematous and both femoral and pedal pulses are normal.Examination of the skin revealed no evidence of significant rashes, suspicious appearing nevi or other concerning lesions. Results - Laboratory Findings CBC and BMP: 03/26/20 07:54 03/25/20 16:17 PT/INR, D-dimer PT 11.2 sec (9.0-12.0) 03/25/20 16:19 INR 1.1 (<1.2) 03/25/20 16:19 D-Dimer 30.37 mg/L FEU (<0.60) H 03/25/20 16:19 Abnormal lab findings: Abnormal Labs 03/25/20 03/25/20 03/25/20 16:17 16:19 16:19 WBC Hgb 12.7 L Hct 37.6 L RDW 16.4 H Neutrophils # 9.5 H Lymphocytes # 0.3 L APTT D-Dimer 30.37 H Potassium 3.1 L Chloride 109 H Carbon Dioxide 17 L BUN 41 H Creatinine 1.97 H Glucose 136 H Plasma Lactic Acid Raul Ferritin 346.1 H AST 83 H ALT 50 H Lactate Dehydrogenase 1005 H Creatine Kinase 655 H Troponin I C-Reactive Protein 79.1 H 03/25/20 03/25/20 03/25/20 16:19 16:19 19:10 WBC Hgb Hct RDW Neutrophils # Lymphocytes # APTT D-Dimer Potassium Chloride Carbon Dioxide BUN Creatinine Glucose Plasma Lactic Acid Raul 3.5 H* Ferritin AST ALT Lactate Dehydrogenase Creatine Kinase Troponin I 0.156 H* 0.204 H* C-Reactive Protein 03/25/20 03/25/20 03/26/20 23:40 23:40 07:54 WBC 12.8 H Hgb Hct RDW 16.7 H Neutrophils # 11.7 H Lymphocytes # 0.6 L APTT 117.5 H* D-Dimer Potassium Chloride Carbon Dioxide BUN Creatinine Glucose Plasma Lactic Acid Raul Ferritin AST ALT Lactate Dehydrogenase Creatine Kinase Troponin I 0.157 H* C-Reactive Protein 03/26/20 07:54 WBC Hgb Hct RDW Neutrophils # Lymphocytes # APTT 74.4 H D-Dimer Potassium Chloride Carbon Dioxide BUN Creatinine Glucose Plasma Lactic Acid Raul Ferritin AST ALT Lactate Dehydrogenase Creatine Kinase Troponin I C-Reactive Protein - Diagnostic Findings Chest x-ray: image reviewed Assessment and Plan Plan: 1 aacute on chronic hypoxic respiratory failure, currently on 4 L of oxygen by n lisa cannula. The patient increased shortness of breath and cough and fever and elevated inflammatory markers. Awaiting COVID 19 by PCR. 2 troponin leak currently on IV heparin 3 elevated d-dimer was along with elevated inflammatory markers 4 coronary artery disease 5 stage III kidney disease currently stable creatinine 6 hypertension 7 hypothyroidism 8 BPH 9 COPD 10 dementia with mild impairment of the cognitive functions. 11 AAA status post endovascular stent graftingthe patient also has a stent in his descending aorta. 12 umbilical hernia 13 left inguinal hernia 14 history of pacemaker insertion current rhythm is paced 15 previous history of GI bleed and the patient has had a colonoscopy that showed rectal strictures and polyps that do not to be tubulovillous adenoma. plan Awaiting COVID19 testing by PCR agree on Decadron Chest x-ray was reviewed Keep oxygen at 4 L and gradually wean it off Cardiology consultation Re: Troponin leak and keep the heparin for now We'll continue to follow
[2020-03-26] MEDS ORDERED: NON FORMULARY DRUG (Aspirin Ec 81 MG Tablet.Dr) PO SCH (10:45)
[2020-03-26] MEDS ORDERED: ACETAMINOPHEN TAB 325 MG TAB PO PRN (10:45)
[2020-03-26] MEDS ORDERED: ERGOCALCIFEROL 50,000 UNIT CAP PO SCH (10:45)
[2020-03-26] MEDS ORDERED: NITROGLYCERIN SL TABS 0.4 MG TAB SUBLINGUAL PRN (10:45)
[2020-03-26] MEDS ORDERED: ALPRAZolam 0.5 MG TAB PO PRN (10:45)
--- NOTE | 2020-03-26 11:20 | P.CRDCN ---
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 He follows in the office with Dr. Shah. We have been asked to see in consultation for elevated troponins. He was brought to the hospital for shortness of breath that has been going on for the past 1-week with recent COVID exposure. Prior to arrival he was found to be hypoxic with saturations in the 70's and cyanosis. He is confused this morning and frequently removing his oxygen per the nurse. He is currently on a non-rebreather with saturations in the low 90's. He denies chest pain. He states he feels short of breath every morning when he wakes up for the last 1-week along with shivers and hot flashes. He is currently being treated for presumed COVID 19, test pending. DIAGNOSTICS EKG reveals sinus mechanism heart rate of 92 with left anterior fascicular block and LVH with evidence of old anterior myocardial infarction nonspecific abnormalities. Chest xray only fibrotic changes with no overt heart failure. Laboratory reviewed, WBC 12.8, hemoglobin 13.1, platelets 208, d-dimer 30, sodium 137, potassium 3.1, creatinine 1.97, lactic acid on admission 3.5 after hydration 1.4, ferritin 346, lactate 1005, troponin 0.156, 0.204 and 0.157, NT proBNP 1990, LDL 49 and HDL 41. Current cardiac medications include aspirin 81 mg daily, atorvastatin 40 mg daily, digoxin 125 g daily, Lasix 40 mg daily and Toprol 25 mg twice a day. Most recent echocardiogram obtained in the office July 2018 revealed impaired LV systolic function with ejection fraction 40%, hypokinesia of the anterior septum, akinesia of the inferior and septal manjarrez at the apex, akinesia of the anterior and lateral manjarrez at the apex, grade 2 diastolic dysfunction, mild mitral regurgitation and mild aortic regurgitation. REVIEW OF SYSTEMS At the time of my exam: CONSTITUTIONAL: Denies fever or chills. CARDIOVASCULAR: Denies chest pain, shortness of breath, orthopnea, PND or palpitations. RESPIRATORY: Denies cough. GASTROINTESTINAL: Denies abdominal pain, diarrhea, constipation, nausea or vomiting. MUSCULOSKELETAL: Denies myalgias. NEUROLOGIC: Denies numbness, tingling or weakness. ENDOCRINE: Denies fatigue, weight change, polydipsia or polyurina. GENITOURINARY: Denies burning, hematuria or urgency with micturation. HEMATOLOGIC: Denies history of anemia or bleeding. PHYSICAL EXAMINATION Blood pressure 162/73 heart rate 99 afebrile and maintaining oxygen saturation on nonrebreather. CONSTITUTIONAL: No apparent distress. HEENT: Head is normocephalic. Pupils are equal, round. Sclerae anicteric. Mucous membranes of the mouth are moist. No JVD. No carotid bruit. CHEST EXAMINATION: Lungs are clear to auscultation. No chest wall tenderness is noted on palpation or with deep breathing. HEART EXAMINATION: Regular rate and rhythm. S1, S2 heard. No murmurs, gallops or rub. ABDOMEN: Soft, nontender. Positive bowel sounds. EXTREMITIES: 2+ peripheral pulses, no lower extremity edema and no calf tenderness. NEUROLOGIC EXAMINATION: Patient is awake, alert and confused about time and situation ASSESSMENT Suspected Covid 19 infection Abnormal troponin secondary to type II myocardial infarction, oxygen supply and demand mismatch Hypoxia Coronary artery disease status post PCI Permanent pacemaker implantation History of ascending and descending aortic aneurysm status post grafting Ischemic cardiomyopathy Chronic systolic heart failure, clinically euvolemic Chronic kidney disease Hypertension Dyslipidemia Dementia PLAN Decrease aspirin to 81 mg daily. Initiate losartan 12.5 mg daily. Continue heparin infusion for 24 hours. Repeat 2D echocardiogram and doppler study to assess cardiac structure and function. Ongoing medical management and treatment of suspected COVID infection. Thank you kindly for this consultation. Nurse Practitioner note has been reviewed, I agree with a documented findings and plan of care. Patient was seen and examined. Past Medical History Past Medical History: Chest Pain / Angina, COPD, Dementia, Hyperlipidemia, Hypertension, Myocardial Infarction (OR), Renal Disease Additional Past Medical History / Comment(s): aneurysm, colon cancer Last Myocardial Infarction Date:: unknown History of Any Multi-Drug Resistant Organisms: None Reported Past Surgical History: Heart Catheterization With Stent Additional Past Surgical History / Comment(s): aneurysm repair to heart and abd Past Anesthesia/Blood Transfusion Reactions: No Reported Reaction Date of Last Stent Placement:: unknown Type of Cardiac Device: Permanent Pacemaker Device Placement Date:: unknown Past Psychological History: Depression Smoking Status: Never smoker Past Alcohol Use History: None Reported Past Drug Use History: None Reported - Past Family History Father Additional Family Medical History / Comment(s): alcoholic Mother Additional Family Medical History / Comment(s): anerysm, of OR Medications and Allergies Home Medications Medication Instructions Recorded Confirmed Type ALPRAZolam [Xanax] 0.5 mg PO BID PRN 01/21/17 03/25/20 History Aspirin EC [Ecotrin Low Dose] 81 mg PO DAILY 01/21/17 03/25/20 History Atorvastatin [Lipitor] 40 mg PO DAILY 01/21/17 03/25/20 History DULoxetine HCL [Cymbalta] 30 mg PO BID 01/21/17 03/25/20 History Digoxin [Lanoxin] 125 mcg PO DAILY 01/21/17 03/25/20 History Furosemide [Lasix] 40 mg PO DAILY 01/21/17 03/25/20 History Levothyroxine Sodium [Synthroid] 125 mcg PO DAILY 01/21/17 03/25/20 History Memantine [Namenda] 10 mg PO AC-BID 01/21/17 03/25/20 History Metoprolol Succinate (ER) [Toprol 25 mg PO BID 01/21/17 03/25/20 History XL] Mirtazapine [Remeron] 30 mg PO HS 01/21/17 03/25/20 History Nitroglycerin Sl Tabs [Nitrostat] 0.4 mg SUBLINGUAL Q5M PRN 01/21/17 03/25/20 History Fluticasone Nasal Cascade [Flonase 1 spr EA NOSTRIL DAILY 04/09/19 03/25/20 History Nasal Cascade] Tamsulosin [Flomax] 0.4 mg PO DAILY 04/09/19 03/25/20 History Ipratropium-Albuterol Nebulize 3 ml INHALATION RT-QID 10/29/19 03/25/20 History [Duoneb 0.5 mg-3 mg/3 ml Soln] Vitamin D3 50,000iu 50,000 unit PO Q7D 10/29/19 03/25/20 History Omeprazole [PriLOSEC] 20 mg PO AC-BID #60 cap 11/02/19 03/25/20 Rx ARIPiprazole [Abilify] 10 mg PO HS 03/25/20 03/25/20 History Acetaminophen Tab [Tylenol] 650 mg PO Q4HR PRN 03/25/20 03/25/20 History Diphenoxylate HCl/Atropine 2 tab PO QID PRN 03/25/20 03/25/20 History [Lomotil 2.5-0.025 mg Tablet] Meclizine [Antivert] 25 mg PO TID 03/25/20 03/25/20 History oxyCODONE-APAP 10-325MG [Percocet 1 tab PO TID PRN 03/25/20 03/25/20 History 10-325 mg] Allergies Allergy/AdvReac Type Severity Reaction Status Date / Time cephalexin [From Keflex] AdvReac Nausea & Verified 03/25/20 16:24 Vomiting & Diarrhea warfarin [From Coumadin] AdvReac Unknown Verified 03/25/20 16:24 Physical Exam Vitals: Vital Signs Temp Pulse Pulse Resp BP BP Pulse Ox 03/26/20 09:23 20 91 L 03/26/20 08:00 97.6 F 20 162/73 78 L 03/26/20 04:00 97.4 F L 18 146/87 95 03/26/20 02:00 18 03/26/20 00:00 97.8 F 18 137/81 95 03/25/20 23:00 79 18 119/87 98 03/25/20 20:26 82 16 03/25/20 20:14 82 16 03/25/20 20:00 97.8 F 73 18 137/81 95 03/25/20 18:04 97.8 F 73 18 137/81 95 03/25/20 18:00 97.6 F 84 18 108/75 95 03/25/20 17:29 86 17 94/66 96 03/25/20 16:04 100.5 F H 90 24 138/83 98 Intake and Output 03/25/20 03/26/20 03/26/20 22:59 06:59 14:59 Intake Total 101.647 87.974 Output Total 500 Balance -398.353 87.974 Intake: Intake, IV Titration 101.647 87.974 Amount Heparin Sod,Pork in 0.45% 101.647 87.974 NaCl 25,000 unit In 0.45 % NaCl 1 250ml.bag @ 18 UNITS/KG/HR 14.696 mls/hr IV .Q17H1M [facility] Rx#: [id number] Output: Urine 500 Other: Voiding Method Urinal # Voids 1 Weight 81.647 kg 80.6 kg 80.6 kg Results 03/26/20 07:54 03/25/20 16:17 Cardiac Enzymes 03/25/20 03/25/20 03/25/20 Range/Units 16:17 16:19 19:10 AST 83 H (17-59) U/L Lactate Dehydrogenase 1005 H (313-618) U/L Troponin I 0.156 H* 0.204 H* (0.000-0.034) ng/mL 03/25/20 Range/Units 23:40 AST (17-59) U/L Lactate Dehydrogenase (313-618) U/L Troponin I 0.157 H* (0.000-0.034) ng/mL Coagulation 03/25/20 03/25/20 03/26/20 Range/Units 16:19 23:40 07:54 PT 11.2 (9.0-12.0) sec APTT 24.6 117.5 H* 74.4 H (22.0-30.0) sec Lipids 03/26/20 Range/Units 07:54 Triglycerides 72 (<150) mg/dL Cholesterol 104 (<200) mg/dL HDL Cholesterol 41 (40-60) mg/dL CBC 03/25/20 03/26/20 Range/Units 16:19 07:54 WBC 10.4 12.8 H (3.8-10.6) k/uL RBC 4.48 4.78 (4.30-5.90) m/uL Hgb 12.7 L 13.1 (13.0-17.5) gm/dL Hct 37.6 L 40.8 (39.0-53.0) % Plt Count 173 208 (150-450) k/uL Comprehensive Metabolic Panel 03/25/20 Range/Units 16:17 Sodium 137 (137-145) mmol/L Potassium 3.1 L (3.5-5.1) mmol/L Chloride 109 H (98-107) mmol/L Carbon Dioxide 17 L (22-30) mmol/L BUN 41 H (9-20) mg/dL Creatinine 1.97 H (0.66-1.25) mg/dL Glucose 136 H (74-99) mg/dL Calcium 9.8 (8.4-10.2) mg/dL AST 83 H (17-59) U/L ALT 50 H (4-49) U/L Alkaline Phosphatase 98 (38-126) U/L Total Protein 6.6 (6.3-8.2) g/dL Albumin 3.6 (3.5-5.0) g/dL Current Medications Generic Name Dose Route Start Last Admin Trade Name Freq PRN Reason Stop Dose Admin Acetaminophen 650 mg 03/26/20 10:45 Acetaminophen Tab 325 Mg Tab PO Q4HR PRN Fever and/ or Pain Albuterol Sulfate 2 puff 03/26/20 08:00 03/26/20 07:49 Albuterol Hfa Inhaler INHALATION 2 puff RT-QID TWILA Administration Alprazolam 0.5 mg 03/26/20 10:45 Alprazolam 0.5 Mg Tab PO BID PRN Anxiety Aripiprazole 10 mg 03/26/20 21:00 Aripiprazole 10 Mg Tab PO HS TWILA Ascorbic Acid 1,000 mg 03/26/20 09:00 03/26/20 09:11 Ascorbic Acid 500 Mg Tab PO 1,000 mg DAILY TWILA Administration Aspirin 81 mg 03/26/20 09:00 03/26/20 09:11 Aspirin 81 Mg PO 81 mg DAILY TWILA Administration Atorvastatin Calcium 40 mg 03/26/20 09:00 03/26/20 09:11 Atorvastatin 40 Mg Tab PO 40 mg DAILY TWILA Administration Cholecalciferol 400 unit 03/26/20 09:00 03/26/20 09:12 Cholecalciferol 400 Unit Tab PO 400 unit DAILY TWILA Administration Dexamethasone 6 mg 03/26/20 09:00 03/26/20 09:11 Dexamethasone 2 Mg Tab PO 6 mg DAILY TWILA Administration Digoxin 125 mcg 03/26/20 09:00 03/26/20 09:11 Digoxin 125 Mcg Tab PO 125 mcg DAILY TWILA Administration Duloxetine HCl 30 mg 03/25/20 21:00 03/26/20 09:11 Duloxetine Hcl 30 Mg Capsule.Dr PO 30 mg BID TWILA Administration Ergocalciferol 50,000 unit 03/26/20 10:45 Ergocalciferol 50,000 Unit Cap PO Q7D TWILA Famotidine 20 mg 03/26/20 09:00 03/26/20 09:12 Famotidine 20 Mg/2 Ml Vial IV 20 mg Q12HR TWILA Administration Fluticasone Propionate 1 spray 03/26/20 09:00 03/26/20 09:12 Fluticasone 50mcg/Cascade Nasal 16gm EA NOSTRIL 1 spray DAILY TWILA Administration Furosemide 40 mg 03/27/20 09:00 Furosemide 40 Mg Tab PO DAILY TWILA Heparin Sodium (Porcine) 0 unit 03/25/20 17:19 Heparin Sodium,Porcine 5,000 Unit/Ml 1 Ml Vial IV PER PROTOCOL PRN Low PTT Protocol Heparin Sodium/Sodium Chloride 250 mls @ 14.696 mls/hr 03/25/20 17:30 1 05/27/19 09:13 25,000 unit/ Sodium Chloride IV 12.55 units/kg/hr .Q17H1M TWILA 10.247 mls/hr Titration Protocol 18 UNITS/KG/HR Levothyroxine Sodium 125 mcg 03/26/20 06:30 03/26/20 06:32 Levothyroxine 125 Mcg Tab PO 125 mcg DAILY@0630 TWILA Administration Losartan Potassium 12.5 mg 03/26/20 09:00 03/26/20 09:11 Losartan 25 Mg Tab PO 12.5 mg DAILY TWILA Administration Meclizine HCl 25 mg 03/25/20 22:00 03/26/20 09:10 Meclizine 25 Mg Tab PO 25 mg TID TWILA Administration Memantine 10 mg 03/26/20 07:30 03/26/20 06:32 Memantine 10 Mg Tab PO 10 mg AC-BID TWILA Administration Metoprolol Succinate 25 mg 03/25/20 21:00 03/26/20 09:11 Metoprolol Succinate (Er) 25 Mg Tab.Er.24h PO 25 mg BID TWILA Administration Mirtazapine 30 mg 03/25/20 21:00 03/25/20 22:07 Mirtazapine 15 Mg Tab PO 30 mg HS TWILA Administration Nitroglycerin 0.4 mg 03/25/20 17:46 Nitroglycerin Sl Tabs 0.4 Mg Tab SUBLINGUAL Q5M PRN Chest Pain Nitroglycerin 0.4 mg 03/26/20 10:45 Nitroglycerin Sl Tabs 0.4 Mg Tab SUBLINGUAL Q5M PRN Chest Pain Oxycodone/Acetaminophen 1 each 03/25/20 17:54 Oxycodone-Apap 10-325mg 1 Each Tab PO TID PRN Pain Pantoprazole Sodium 40 mg 03/26/20 07:30 03/26/20 06:32 Pantoprazole 40 Mg Tablet PO 40 mg AC-BRKFST TWILA Administration Tamsulosin HCl 0.4 mg 03/26/20 09:00 03/26/20 09:10 Tamsulosin 0.4 Mg Cap.Er.24h PO 0.4 mg DAILY TWILA Administration Zinc Sulfate 220 mg 03/26/20 09:00 03/26/20 09:11 Zinc Sulfate 220 Mg Cap PO 220 mg DAILY TWILA Administration Intake and Output 03/25/20 03/26/20 03/26/20 22:59 06:59 14:59 Intake Total 101.647 87.974 Output Total 500 Balance -398.353 87.974 Intake: Intake, IV Titration 101.647 87.974 Amount Heparin Sod,Pork in 0.45% 101.647 87.974 NaCl 25,000 unit In 0.45 % NaCl 1 250ml.bag @ 18 UNITS/KG/HR 14.696 mls/hr IV .Q17H1M [facility] Rx#: [id number] Output: Urine 500 Other: Voiding Method Urinal # Voids 1 Weight 81.647 kg 80.6 kg 80.6 kg Patient Weight 03/27/20 06:59 Weight 80.6 kg 03/26/20 07:54 03/25/20 16:17
[2020-03-26] MEDS: HEPARIN SOD,PORK IN 0.45% NACL 25,000 UNIT in 0.45% NACL 1 250ML.BAG IV SCH (11:46)
--- NOTE | 2020-03-26 12:49 | ECHOF ---
Referral Reason:elev trop MEASUREMENTS -------- HEIGHT: 177.8 cm WEIGHT: 80.3 kg BP: 146/87 IVSd: 2.1 cm (0.6 - 1.1) LVIDd: 3.3 cm (3.9 - 5.3) LVPWd: 2.0 cm (0.6 - 1.1) IVSs: 2.4 cm LVIDs: 2.5 cm LVPWs: 1.8 cm LAESV Index (A-L): 42.07 ml/m Ao Diam: 3.7 cm (2.0 - 3.7) AV Cusp: 1.8 cm (1.5 - 2.6) MV E Thomas: 0.52 m/s MV DecT: 289 ms MV A Thomas: 1.25 m/s MV E/A Ratio: 0.42 AR PHT: 756 ms RAP: 5.00 mmHg RVSP: 44.91 mmHg FINDINGS -------- Sinus rhythm. This was a technically difficult study with suboptimal apical views. The left ventricular size is normal. There is moderate concentric left ventricular hypertrophy. O verall left ventricular systolic function is moderate-severely impaired with, an EF between 30 - 35 % . 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 Clinical correlat ion recommended. Mid anteroseptal LV wall motion is hypokinetic. Apical anterior LV wall motion is hypokinetic. Apical lateral LV wall motion is hypokinetic. Apical inferior LV wall motion i s hypokinetic. Apical septum LV wall motion is hypokinetic. The right ventricle is normal in size. LA is severely dilated >40 ml/m2 The right atrium was not well visualized. Electronic pacemaker lead seen in the right atrial cavity . 5.0mg of Lumason was utilized for enhancement of images Interatrial and interventricular septum intact. There is mild aortic valve sclerosis. There is mild aortic regurgitation. There is no evidence of aortic stenosis. Mild mitral regurgitation is present. Moderate tricuspid regurgitation present. There is moderate pulmonary hypertension. The right sina tricular systolic pressure, as measured by Doppler, is 44.91mmHg. There is no pulmonic regurgitation present. The aortic root size is normal. Normal inferior vena cava with normal inspiratory collapse consistent with estimated right atrial pre ssure of 5 mmHg. There is no pericardial effusion. CONCLUSIONS -------- 1. The left ventricular size is normal. 2. There is moderate concentric left ventricular hypertrophy. 3. Overall left ventricular systolic function is moderate-severely impaired with, an EF between 30 - 35 %. 4. 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 Clinical correlati on recommended. 5. Mid anteroseptal LV wall motion is hypokinetic. 6. Apical anterior LV wall motion is hypokinetic. 7. Apical lateral LV wall motion is hypokinetic. 8. Apical inferior LV wall motion is hypokinetic. 9. Apical septum LV wall motion is hypokinetic. 10. LA is severely dilated >40 ml/m2 11. There is mild aortic valve sclerosis. 12. There is mild aortic regurgitation. 13. Mild mitral regurgitation is present. 14. Moderate tricuspid regurgitation present. 15. There is moderate pulmonary hypertension. 16. The right ventricular systolic pressure, as measured by Doppler, is 44.91mmHg. DUPLEX TRIMMER: Tanika Kingsley RDCS
[2020-03-26] MEDS ORDERED: HEPARIN SOD,PORK IN 0.45% NACL 25,000 UNIT in 0.45% NACL 1 250ML.BAG IV SCH (16:30)
[2020-03-26] MEDS: methylPREDNISolone SOD SUCCI 40 MG/ML 1 ML VIAL IV SCH ×2 (17:34→23:23)
[2020-03-26 20:19] LABS: Glucose,Whole Blood 151 mg/dL (75-99)
[2020-03-26] MEDS ORDERED: POTASSIUM CHLORIDE ER 20 MEQ TAB.ER PO STA (20:42)
[2020-03-26] MEDS ORDERED: ARIPiprazole 10 MG TAB PO SCH (21:00)
[2020-03-26] MEDS: INSULIN ASPART (NovoLOG) 100 UNIT/ML VIAL SQ SCH (21:39)
[2020-03-26] MEDS: MIRTAZAPINE 15 MG TAB PO SCH (21:39)
--- NOTE | 2020-03-26 23:03 | P.HPIM ---
History of Present Illness H&P Date: 03/26/20 Chief Complaint: short of breath History of present complaint: This is a very pleasant 89year-old patient of Dr. price . Chronic stable medical conditions include COPD, BPH, hypothyroid hypertension, hyperlipidemia, coronary artery disease, mild cognitive impairment, coronary artery disease with prior stent, chronic kidney disease stage III..rectal stricture, chronic d iverticulosis. Has a long-standing history of chronic dizziness. patient now presents with progressive short of breath for about a week. He normally has about 2 L of oxygen at home. He was found outfitting his oxygen he was cyanotic and minimally responsive and then in vzoosplsymjuowzumezjxp79% .He'shadacoughandafever.Slightlyconfused. Review of systems: GEN.: Tired EYES: None HEENT: Hard of hearing NECK: None RESPIRATORY: as above CARDIOVASCULAR: None GASTROINTESTINAL: As above GENITOURINARY: None MUSCULOSKELETAL: Pain in the joints LYMPHATICS: None HEMATOLOGICAL: None PSYCHIATRY: None NEUROLOGICAL: Chronic dizziness, uses a walker Past medical history to include: COPD, BPH, hypothyroid hypertension, hyperlipidemia, coronary artery disease, mild cognitive impairment, coronary artery disease with prior stent, chronic kidney disease stage III.. Has a long-standing history of chronic dizziness.rectal stricture, colonic diverticulosis. 2 L of oxygen at home Social history: -Smoked for 55 years stopped about 20 years ago. . Does use a walker. Did work in the [employer]. 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 Physical examination: VITAL SIGNS: 100.5, 90, 24, 1 38/93, 98% on nonrebreather upon presentation GENERAL: sitting at the edge of the bed, eating some shortness of breath EYES: Pupils equal. Conjunctiva pale HEENT: External appearance of nose and ears normal, oral cavity grossly normal. Decreased hearing NECK: JVD not raised; masses not palpable. HEART: First and second heart sounds are normal; no edema. LUNGS: Respiratory rate increasedal, diminished breath sounds ABDOMEN: Soft, nontender, liver spleen not palpable, no masses palpable. PSYCH: Able to answer some questiony. NEUROLOGICAL: Cranial nerves grossly intact; no facial asymmetry, power and sensation grossly intact. Investigations: white count 10.4 hemoglobin 12.7 lymphocytes 0.3 d-dimer 13.37 potassium 3.1 Bun 41 creatinine 1.97 lactic acid 3.5 troponin I 0.156, 0.204, 0.157 CRP 79.1 proBNP 1990pro-calcitonin 0.30 Coronavirus PCR detected, influenza type A type B both negative EKG tracing personally reviewed by me-Sinus rhythm some ST segment changes Chest x-ray film personally reviewed by me-Some interstitial changes Assessment: -acute COVID 19 pneumonia -Acute hypoxic respiratory failure currently on 10 L of oxygen -Chronic hypoxic respiratory failure on 2 L of oxygen at home -Acute myocarditis due to COVID 19. -acute COPD exacerbation in an ex-smoker -Mild cognitive impairment from underlying dementia -Hyperlipidemia -Essential hypertension -Coronary artery disease with prior history of stent -Chronic kidney disease stage III from nephrosclerosis -BPH -Hypothyroid -Broad-based umbilical hernia Plan: patient is on IV heparin. 11 IV Solu-Medrol. Home medications to continue. Accu-Cheks to be closely followed. Patient to receive supplemental zinc vitamin C vitamin D. Consultation to pulmonary and cardiology. Past Medical History Past Medical History: Chest Pain / Angina, COPD, Dementia, Hyperlipidemia, Hy pertension, Myocardial Infarction (MA), Renal Disease Additional Past Medical History / Comment(s): aneurysm, colon cancer Last Myocardial Infarction Date:: unknown History of Any Multi-Drug Resistant Organisms: None Reported Past Surgical History: Heart Catheterization With Stent Additional Past Surgical History / Comment(s): aneurysm repair to heart and abd Past Anesthesia/Blood Transfusion Reactions: No Reported Reaction Date of Last Stent Placement:: unknown Type of Cardiac Device: Permanent Pacemaker Device Placement Date:: unknown Past Psychological History: Depression Smoking Status: Never smoker Past Alcohol Use History: None Reported Past Drug Use History: None Reported - Past Family History Father Additional Family Medical History / Comment(s): alcoholic Mother Additional Family Medical History / Comment(s): anerysm, of [place] Medications and Allergies Home Medications Medication Instructions Recorded Confirmed Type ALPRAZolam [Xanax] 0.5 mg PO BID PRN 01/21/17 03/25/20 History Aspirin EC [Ecotrin Low Dose] 81 mg PO DAILY 01/21/17 03/25/20 History Atorvastatin [Lipitor] 40 mg PO DAILY 01/21/17 03/25/20 History DULoxetine HCL [Cymbalta] 30 mg PO BID 01/21/17 03/25/20 History Digoxin [Lanoxin] 125 mcg PO DAILY 01/21/17 03/25/20 History Furosemide [Lasix] 40 mg PO DAILY 01/21/17 03/25/20 History Levothyroxine Sodium [Synthroid] 125 mcg PO DAILY 01/21/17 03/25/20 History Memantine [Namenda] 10 mg PO AC-BID 01/21/17 03/25/20 History Metoprolol Succinate (ER) [Toprol 25 mg PO BID 01/21/17 03/25/20 History XL] Mirtazapine [Remeron] 30 mg PO HS 01/21/17 03/25/20 History Nitroglycerin Sl Tabs [Nitrostat] 0.4 mg SUBLINGUAL Q5M PRN 01/21/17 03/25/20 History Fluticasone Nasal [place] [Flonase 1 spr EA NOSTRIL DAILY 04/09/19 03/25/20 History Nasal Gibson] Tamsulosin [Flomax] 0.4 mg PO DAILY 04/09/19 03/25/20 History Ipratropium-Albuterol Nebulize 3 ml INHALATION RT-QID 10/29/19 03/25/20 History [Duoneb 0.5 mg-3 mg/3 ml Soln] Vitamin D3 50,000iu 50,000 unit PO Q7D 10/29/19 03/25/20 History Omeprazole [PriLOSEC] 20 mg PO AC-BID #60 cap 11/02/19 03/25/20 Rx ARIPiprazole [Abilify] 10 mg PO HS 03/25/20 03/25/20 History Acetaminophen Tab [Tylenol] 650 mg PO Q4HR PRN 03/25/20 03/25/20 History Diphenoxylate HCl/Atropine 2 tab PO QID PRN 03/25/20 03/25/20 History [Lomotil 2.5-0.025 mg Tablet] Meclizine [Antivert] 25 mg PO TID 03/25/20 03/25/20 History oxyCODONE-APAP 10-325MG [Percocet 1 tab PO TID PRN 03/25/20 03/25/20 History 10-325 mg] Allergies Allergy/AdvReac Type Severity Reaction Status Date / Time cephalexin [From Keflex] AdvReac Nausea & Verified 03/25/20 16:24 Vomiting & Diarrhea warfarin [From Coumadin] AdvReac Unknown Verified 03/25/20 16:24 Physical Exam Vitals: Vital Signs Temp Pulse Pulse Resp BP BP Pulse Ox 03/26/20 09:23 20 91 L 03/26/20 08:00 97.6 F 20 162/73 78 L 03/26/20 04:00 97.4 F L 18 146/87 95 03/26/20 02:00 18 03/26/20 00:00 97.8 F 18 137/81 95 03/25/20 23:00 79 18 119/87 98 03/25/20 20:26 82 16 03/25/20 20:14 82 16 03/25/20 20:00 97.8 F 73 18 137/81 95 03/25/20 18:04 97.8 F 73 18 137/81 95 03/25/20 18:00 97.6 F 84 18 108/75 95 03/25/20 17:29 86 17 94/66 96 03/25/20 16:04 100.5 F H 90 24 138/83 98 Intake and Output 03/25/20 03/26/20 03/26/20 22:59 06:59 14:59 Intake Total 101.647 87.974 Output Total 500 Balance -398.353 87.974 Intake: Intake, IV Titration 101.647 87.974 Amount Heparin Sod,Pork in 0.45% 101.647 87.974 NaCl 25,000 unit In 0.45 % NaCl 1 250ml.bag @ 18 UNITS/KG/HR 14.696 mls/hr IV .Q17H1M [facility] Rx#: [id number] Output: Urine 500 Other: Voiding Method Urinal # Voids 1 Weight 81.647 kg 80.6 kg 80.6 kg Results CBC & Chem 7: 03/26/20 07:54 03/25/20 16:17 Labs: Abnormal Lab Results - Last 24 Hours (Table) 03/25/20 03/25/20 03/25/20 Range/Units 16:17 16:19 16:19 WBC (3.8-10.6) k/uL Hgb 12.7 L (13.0-17.5) gm/dL Hct 37.6 L (39.0-53.0) % RDW 16.4 H (11.5-15.5) % Neutrophils # 9.5 H (1.3-7.7) k/uL Lymphocytes # 0.3 L (1.0-4.8) k/uL APTT (22.0-30.0) sec D-Dimer 30.37 H (<0.60) mg/L FEU Potassium 3.1 L (3.5-5.1) mmol/L Chloride 109 H (98-107) mmol/L Carbon Dioxide 17 L (22-30) mmol/L BUN 41 H (9-20) mg/dL Creatinine 1.97 H (0.66-1.25) mg/dL Glucose 136 H (74-99) mg/dL Plasma Lactic Acid Raul (0.7-2.0) mmol/L Ferritin 346.1 H (22.0-322.0) ng/mL AST 83 H (17-59) U/L ALT 50 H (4-49) U/L Lactate Dehydrogenase 1005 H (313-618) U/L Creatine Kinase 655 H (55-170) U/L Troponin I (0.000-0.034) ng/mL C-Reactive Protein 79.1 H (<10.0) mg/L 03/25/20 03/25/20 03/25/20 Range/Units 16:19 16:19 19:10 WBC (3.8-10.6) k/uL Hgb (13.0-17.5) gm/dL Hct (39.0-53.0) % RDW (11.5-15.5) % Neutrophils # (1.3-7.7) k/uL Lymphocytes # (1.0-4.8) k/uL APTT (22.0-30.0) sec D-Dimer (<0.60) mg/L FEU Potassium (3.5-5.1) mmol/L Chloride (98-107) mmol/L Carbon Dioxide (22-30) mmol/L BUN (9-20) mg/dL Creatinine (0.66-1.25) mg/dL Glucose (74-99) mg/dL Plasma Lactic Acid Raul 3.5 H* (0.7-2.0) mmol/L Ferritin (22.0-322.0) ng/mL AST (17-59) U/L ALT (4-49) U/L Lactate Dehydrogenase (313-618) U/L Creatine Kinase (55-170) U/L Troponin I 0.156 H* 0.204 H* (0.000-0.034) ng/mL C-Reactive Protein (<10.0) mg/L 03/25/20 03/25/20 03/26/20 Range/Units 23:40 23:40 07:54 WBC 12.8 H (3.8-10.6) k/uL Hgb (13.0-17.5) gm/dL Hct (39.0-53.0) % RDW 16.7 H (11.5-15.5) % Neutrophils # 11.7 H (1.3-7.7) k/uL Lymphocytes # 0.6 L (1.0-4.8) k/uL APTT 117.5 H* (22.0-30.0) sec D-Dimer (<0.60) mg/L FEU Potassium (3.5-5.1) mmol/L Chloride (98-107) mmol/L Carbon Dioxide (22-30) mmol/L BUN (9-20) mg/dL Creatinine (0.66-1.25) mg/dL Glucose (74-99) mg/dL Plasma Lactic Acid Raul (0.7-2.0) mmol/L Ferritin (22.0-322.0) ng/mL AST (17-59) U/L ALT (4-49) U/L Lactate Dehydrogenase (313-618) U/L Creatine Kinase (55-170) U/L Troponin I 0.157 H* (0.000-0.034) ng/mL C-Reactive Protein (<10.0) mg/L 03/26/20 Range/Units 07:54 WBC (3.8-10.6) k/uL Hgb (13.0-17.5) gm/dL Hct (39.0-53.0) % RDW (11.5-15.5) % Neutrophils # (1.3-7.7) k/uL Lymphocytes # (1.0-4.8) k/uL APTT 74.4 H (22.0-30.0) sec D-Dimer (<0.60) mg/L FEU Potassium (3.5-5.1) mmol/L Chloride (98-107) mmol/L Carbon Dioxide (22-30) mmol/L BUN (9-20) mg/dL Creatinine (0.66-1.25) mg/dL Glucose (74-99) mg/dL Plasma Lactic Acid Raul (0.7-2.0) mmol/L Ferritin (22.0-322.0) ng/mL AST (17-59) U/L ALT (4-49) U/L Lactate Dehydrogenase (313-618) U/L Creatine Kinase (55-170) U/L Troponin I (0.000-0.034) ng/mL C-Reactive Protein (<10.0) mg/L Thrombosis Risk Factor Assmnt - Choose All That Apply Any of the Below Risk Factors Present?: Yes Each Factor Represents 1 point: Abnormal pulmonary function (COPD), Obesity (BMI >25) Other Risk Factors: Yes Each Risk Factor Represents 3 Points: Age 75 years or older Thrombosis Risk Factor Assessment Total Risk Factor Score: 5 Thrombosis Risk Factor Assessment Level: High Risk
[2020-03-27] VITALS: TEMP 99.3
[2020-03-27] MEDS ORDERED: LORazepam 2 MG/ML INJ IV STA (01:10)
[2020-03-27] MEDS ORDERED: LORazepam 2 MG/ML INJ ONE (01:25)
[2020-03-27 06:23] LABS: Glucose,Whole Blood 127 mg/dL (75-99)
[2020-03-27] MEDS: INSULIN ASPART (NovoLOG) 100 UNIT/ML VIAL SQ SCH ×3 (06:36→19:11)
[2020-03-27] MEDS: MEMANTINE 10 MG TAB PO SCH ×2 (06:40→19:11)
[2020-03-27] MEDS: PANTOPRAZOLE 40 MG TABLET PO SCH (06:40)
[2020-03-27] MEDS: LEVOTHYROXINE 125 MCG TAB PO SCH (06:41)
[2020-03-27] MEDS: ALBUTEROL HFA INHALER INHALATION SCH ×4 (07:59→19:02)
[2020-03-27 08:30] LABS: Anisocytosis Slight; Basophils % (A) 0 %; Eosinophils % (A) 0 %; HCT 40.9 % (39.0-53.0); HGB 13.3 gm/dL (13.0-17.5); Lymphocytes # (A) 0.3 k/uL (1.0-4.8); Lymphocytes % (A) 2 %; MCH 27.7 pg (25.0-35.0); MCHC 32.4 g/dL (31.0-37.0); MCV 85.3 fL (80.0-100.0); Mean Platelet Volume 7.7; Monocytes # (A) 0.5 k/uL (0-1.0); Monocytes % (A) 3 %; Neutrophils # (A) 14.9 k/uL (1.3-7.7); Neutrophils % (A) 94 %; Platelet Count 221 k/uL (150-450); RBC 4.79 m/uL (4.30-5.90); RDW 16.7 % (11.5-15.5); WBC 15.8 k/uL (3.8-10.6)
[2020-03-27] MEDS: ASPIRIN 81 MG PO SCH (08:54)
[2020-03-27] MEDS: LOSARTAN 25 MG TAB PO SCH (08:54)
[2020-03-27] MEDS: TAMSULOSIN 0.4 MG CAP.ER.24H PO SCH (08:55)
[2020-03-27] MEDS: MECLIZINE 25 MG TAB PO SCH ×2 (08:55→19:11)
[2020-03-27] MEDS: DULoxetine HCL 30 MG CAPSULE.DR PO SCH (08:55)
[2020-03-27] MEDS: ATORVASTATIN 40 MG TAB PO SCH (08:55)
[2020-03-27] MEDS: ASCORBIC ACID 500 MG TAB PO SCH (08:55)
[2020-03-27] MEDS: DIGOXIN 125 MCG TAB PO SCH (08:55)
[2020-03-27] MEDS: METOPROLOL SUCCINATE (ER) 25 MG TAB.ER.24H PO SCH (08:55)
[2020-03-27] MEDS: ZINC SULFATE 220 MG CAP PO SCH (08:55)
[2020-03-27] MEDS: CHOLECALCIFEROL 400 UNIT TAB PO SCH (08:56)
[2020-03-27] MEDS: methylPREDNISolone SOD SUCCI 40 MG/ML 1 ML VIAL IV SCH ×2 (08:56→19:12)
[2020-03-27] MEDS ORDERED: FUROSEMIDE 40 MG TAB PO SCH (09:00)
[2020-03-27] MEDS ORDERED: ENOXAPARIN 80 MG/0.8 ML SYRINGE SQ SCH (09:00)
[2020-03-27 09:06] VITALS: RESP 16
--- NOTE | 2020-03-27 10:34 | P.PN ---
Subjective Progress Note Date: 03/27/20 89-year-old patient underwent emergency department yesterday because of worsening shortness of breath. He was recently exposed to COVID 19, and he has been getting progressively weak. He was also having some diarrhea. Many emergency department, he was not requiring oxygen and his pulse ox was in the l ow 70s. He was placed on 2 L of oxygen by nasal cannula. His pulse ox is 94%. He had some limited cough. He has also some fever. No chest pain. He is a poor historian. He has multiple medical problems and comorbidities. He lives at home with his . Lymph. Her white cell count is 12.8. He had some lymphopenia and. His d-dimer was 30.3. His troponins were 0.0.2 and 01 respectively and the patient was placed on IV heparin. The patient's creatinine was up to 1.97 with a BUN of 41.His urine was 17. Lactic acid level III.5. Ferritin was 46, AST 83 with an ALT of 50. He was as 79 with a LDH level about 1005. His temperature was 105 by EMS.the patient typically wears 2 L at home and currently is on 4 L. X-ray showing some cardiomegaly. There is a aneurysm of the ascending aorta and there is also endovascular stent grafting. There is also a left-sided pacemaker. No acute infiltration. On 03/27/2020, the patient's oxygenation has gotten worse. Overnight, the patient was placed on on the percent nonrebreather facemask and his pulse ox is ranging from 88-90%. He is currently on Decadron. This was switched to Solu- Medrol by hospitalist. He remains on Lovenox 80 mg subcu daily basis.. The d- dimer was significantly elevated at time of admission. He is a bit more l ethargic and weak compared to yesterday. At times, is also confused. Objective - Vital Signs Vital signs: Vital Signs Temp 99.3 F 03/26/20 23:59 Pulse 60 03/27/20 08:00 Resp 16 03/27/20 08:00 BP 172/84 03/27/20 08:00 Pulse Ox 90 L 03/27/20 08:00 Intake & Output 03/26/20 03/27/20 03/27/20 18:59 06:59 18:59 Intake Total 457.709 74.911 Output Total 600 Balance 457.709 -525.089 Weight 80.6 kg 80.1 kg Intake: Intake, IV Titration 97.709 74.911 Amount Heparin Sod,Pork in 0.45% 87.974 NaCl 25,000 unit In 0.45 % NaCl 1 250ml.bag @ 18 UNITS/KG/HR 14.696 mls/hr IV .Q17H1M [facility] Rx#: [id number] Heparin Sod,Pork in 0.45% 9.735 74.911 NaCl 25,000 unit In 0.45 % NaCl 1 250ml.bag @ 18 UNITS/KG/HR 14.696 mls/hr IV .Q17H1M [facility] Rx#: [id number] Oral 360 Output: Urine 600 Other: Voiding Method Incontinent Incontinent # Voids 1 1 - Exam The patient appeared very much lethargic, sleepy, confused 100% nonrebreather facemask. No agitation. He is sometimes morning. His speech is known To have this point in time. Vital signs as documented. Head exam is unremarkable. No scleral icterus or corneal arcus noted. Neck is without jugular venous distension, thyromegaly, or carotid bruits. Carotid upstrokes are brisk bilatera lly. Lungs are diminished breath sounds and crackles in lung bases are appreciated bilaterally.. Cardiac exam reveals the PMI to be normally sized and situated. Rhythm is regular. First and second heart sounds normal. No murmurs, rubs or gallops. Abdominal exam reveals normal bowel sounds, no masses, no organomegaly and no aortic enlargement. There is a scar in the mid abdomen along with an umbilical hernia which is easily reducible. No direct tenderness. No rebound tenderness. No guarding. Extremities are nonedematous and both femoral and pedal pulses are normal.Examination of the skin revealed no evidence of significant rashes, suspicious appearing nevi or other concerning lesions.estuardo rologically confused and altered. Exam is nonfocal. - Labs CBC & Chem 7: 03/27/20 07:31 03/25/20 16:17 Labs: Abnormal Lab Results - Last 24 Hours (Table) 03/25/20 03/26/20 03/26/20 Range/Units 16:21 07:54 17:01 WBC (3.8-10.6) k/uL RDW (11.5-15.5) % Neutrophils # (1.3-7.7) k/uL Lymphocytes # (1.0-4.8) k/uL APTT 35.2 H (22.0-30.0) sec POC Glucose (mg/dL) (75-99) mg/dL Procalcitonin 0.30 H (0.02-0.09) ng/mL Coronavirus (PCR) Detected A (Not Detected) 03/26/20 03/26/20 03/27/20 Range/Units 20:18 23:13 06:21 WBC (3.8-10.6) k/uL RDW (11.5-15.5) % Neutrophils # (1.3-7.7) k/uL Lymphocytes # (1.0-4.8) k/uL APTT 55.4 H (22.0-30.0) sec POC Glucose (mg/dL) 151 H 127 H (75-99) mg/dL Procalcitonin (0.02-0.09) ng/mL Coronavirus (PCR) (Not Detected) 03/27/20 03/27/20 Range/Units 07:31 07:31 WBC 15.8 H (3.8-10.6) k/uL RDW 16.7 H (11.5-15.5) % Neutrophils # 14.9 H (1.3-7.7) k/uL Lymphocytes # 0.3 L (1.0-4.8) k/uL APTT 71.3 H (22.0-30.0) sec POC Glucose (mg/dL) (75-99) mg/dL Procalcitonin (0.02-0.09) ng/mL Coronavirus (PCR) (Not Detected) Microbiology - Last 24 Hours (Table) 03/25/20 16:19 Blood Culture - Preliminary Blood No Growth after 24 hours Assessment and Plan Plan: 1 acute on chronic hypoxic respiratory failure, secondary to COVID 19 pneumonia and the patient currently is on 100% nonrebreather facemask. The patient is on IV Solu-Medrol.patient is also on Lovenox. 2 troponin leak 3 elevated d-dimer was along with elevated inflammatory markers, secondary to above 4 coronary artery disease 5 stage III kidney disease currently stable creatinine 6 hypertension 7 hypothyroidism 8 BPH 9 COPD 10 dementia with mild impairment of the cognitive functions. 11 AAA status post endovascular stent graftingthe patient also has a stent in his descending aorta. 12 umbilical hernia 13 left inguinal hernia 14 history of pacemaker insertion current rhythm is paced 15 previous history of GI bleed and the patient has had a colonoscopy that showed rectal strictures and polyps that do not to be tubulovillous adenoma. plan keep 100% nonrebreather facemask Keep steroids Considering Remdesivir and will lessen plasma Chest x-ray to be repeated today continue Lovenox prognosis poor and will continue to follow. CODE STATUS is to be established
--- NOTE | 2020-03-27 11:20 | XR ---
EXAMINATION TYPE: XR chest 1V portable DATE OF EXAM: 03/27/2020 CLINICAL HISTORY: Difficulty breathing progress study. TECHNIQUE: Single AP portable upright view of the chest is obtained. COMPARISON: Chest x-ray from 2 days earlier and older studies. CTA chest April 09, 2019. FINDINGS: Anterior fusion plate in the cervical spine is redemonstrated. Advanced degenerative hou e bilateral glenohumeral joints redemonstrated. Persistent cardiomegaly with dual lead pacemaker. Per sistent metallic stent graft in the descending thoracic aorta and partial visualization of stent shonna t in the abdominal aorta. Background chronic emphysematous change with increasing reticulonodular opa cities bilaterally greatest in the periphery on the basilar regions. No pleural effusion or pneumotho rax noted. IMPRESSION: Worsening multifocal infiltrates greatest in the periphery in the basilar region consiste nt with covid 19 infection progression on background cardiomegaly and chronic emphysematous change.
[2020-03-27 11:25] LABS: ABG Base Excess -6.1 mmol/L; ABG HCO3 18 mmol/L (21-25); ABG Oxygen Saturation 81.9 % (94-97); ABG PCO2 28 mmHg (35-45); ABG PH 7.43 (7.35-7.45); ABG TCO2 19 mmol/L (19-24); Allen Test Performed? Yes
[2020-03-27 11:26] LABS: ABG PO2 46 mmHg (83-108)
[2020-03-27] MEDS ORDERED: REMDESIVIR 200 MG in SODIUM CHLORIDE 0.9% 250 ML IVPB ONE (12:00)
[2020-03-27 12:15] LABS: Glucose,Whole Blood 101 mg/dL (75-99)
--- NOTE | 2020-03-27 13:08 | P.PN ---
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 He follows in the office with Dr. Shah. He is currently being treated for acute COVID 19 infection. Blood pressure 172/84 heart rate 60 afeibrile and maintaining oxygen saturation on room on non-breather. Echocardiogram obtained revealed impaired LV function with no significant change from previous. Laboratory data reviewed, WBC 15.8, hemoglobin 13.3, platelets 221, pH 7.43, pCO2 28, pO2 46 and bicarbonate 18. Currently maintained on aspirin 81 mg daily, atorvastatin 40 mg daily, digoxin 125 g daily, heparin infusion, Lasix 40 mg by mouth twice a day, losartan 12.5 mg daily and metoprolol 25 mg twice a day. PHYSICAL EXAMINATION CONSTITUTIONAL: No apparent distress. NO thorough exam was performed to prevent spread of COVID 19 ASSESSMENT Suspected Covid 19 infection Abnormal troponin secondary to type II myocardial infarction, oxygen supply and demand mismatch Hypoxia Coronary artery disease status post PCI Permanent pacemaker implantation History of ascending and descending aortic aneurysm status post grafting Ischemic cardiomyopathy Chronic systolic heart failure, clinically euvolemic Chronic kidney disease Hypertension Dyslipidemia Dementia PLAN Discontinue heparin infusion and initiate subcu Lovenox DVT prophylaxis. Ongoing medical management and treatment of suspected COVID infection. We will follow along as needed, follow up in the office with Dr. Shah. Please call with further questions or concerns. Nurse Practitioner note has been reviewed, I agree with a documented findings and plan of care. Patient was seen and examined. Objective - Vital Signs Vital signs: Vital Signs Temp 99.3 F 03/26/20 23:59 Pulse 60 03/27/20 08:00 Resp 16 03/27/20 08:00 BP 172/84 03/27/20 08:00 Pulse Ox 90 L 03/27/20 08:00 Intake & Output 03/26/20 03/27/20 03/27/20 18:59 06:59 18:59 Intake Total 457.709 74.911 0 Output Total 600 Balance 457.709 -525.089 0 Weight 80.6 kg 80.1 kg Intake: Intake, IV Titration 97.709 74.911 Amount Heparin Sod,Pork in 0.45% 87.974 NaCl 25,000 unit In 0.45 % NaCl 1 250ml.bag @ 18 UNITS/KG/HR 14.696 mls/hr IV .Q17H1M [facility] Rx#: [id number] Heparin Sod,Pork in 0.45% 9.735 74.911 NaCl 25,000 unit In 0.45 % NaCl 1 250ml.bag @ 18 UNITS/KG/HR 14.696 mls/hr IV .Q17H1M [facility] Rx#: [id number] Oral 360 0 Output: Urine 600 Other: Voiding Method Incontinent Incontinent # Voids 1 1 0 # Bowel Movements 0 - Labs CBC & Chem 7: 03/27/20 07:31 03/25/20 16:17 Labs: Abnormal Lab Results - Last 24 Hours (Table) 03/25/20 03/26/20 03/26/20 Range/Units 16:21 07:54 17:01 WBC (3.8-10.6) k/uL RDW (11.5-15.5) % Neutrophils # (1.3-7.7) k/uL Lymphocytes # (1.0-4.8) k/uL APTT 35.2 H (22.0-30.0) sec ABG pCO2 (35-45) mmHg ABG pO2 (83-108) mmHg ABG HCO3 (21-25) mmol/L ABG O2 Saturation (94-97) % POC Glucose (mg/dL) (75-99) mg/dL Procalcitonin 0.30 H (0.02-0.09) ng/mL Coronavirus (PCR) Detected A (Not Detected) 03/26/20 03/26/20 03/27/20 Range/Units 20:18 23:13 06:21 WBC (3.8-10.6) k/uL RDW (11.5-15.5) % Neutrophils # (1.3-7.7) k/uL Lymphocytes # (1.0-4.8) k/uL APTT 55.4 H (22.0-30.0) sec ABG pCO2 (35-45) mmHg ABG pO2 (83-108) mmHg ABG HCO3 (21-25) mmol/L ABG O2 Saturation (94-97) % POC Glucose (mg/dL) 151 H 127 H (75-99) mg/dL Procalcitonin (0.02-0.09) ng/mL Coronavirus (PCR) (Not Detected) 03/27/20 03/27/20 03/27/20 Range/Units 07:31 07:31 11:22 WBC 15.8 H (3.8-10.6) k/uL RDW 16.7 H (11.5-15.5) % Neutrophils # 14.9 H (1.3-7.7) k/uL Lymphocytes # 0.3 L (1.0-4.8) k/uL APTT 71.3 H (22.0-30.0) sec ABG pCO2 28 L (35-45) mmHg ABG pO2 46 L* (83-108) mmHg ABG HCO3 18 L (21-25) mmol/L ABG O2 Saturation 81.9 L (94-97) % POC Glucose (mg/dL) (75-99) mg/dL Procalcitonin (0.02-0.09) ng/mL Coronavirus (PCR) (Not Detected) 03/27/20 Range/Units 12:14 WBC (3.8-10.6) k/uL RDW (11.5-15.5) % Neutrophils # (1.3-7.7) k/uL Lymphocytes # (1.0-4.8) k/uL APTT (22.0-30.0) sec ABG pCO2 (35-45) mmHg ABG pO2 (83-108) mmHg ABG HCO3 (21-25) mmol/L ABG O2 Saturation (94-97) % POC Glucose (mg/dL) 101 H (75-99) mg/dL Procalcitonin (0.02-0.09) ng/mL Coronavirus (PCR) (Not Detected) Microbiology - Last 24 Hours (Table) 03/25/20 16:19 Blood Culture - Preliminary Blood No Growth after 24 hours
[2020-03-27] MEDS ORDERED: MORPHINE SULFATE 2 MG/ML SYRINGE IVP PRN (13:24)
[2020-03-27] MEDS ORDERED: MORPHINE SULFATE 2 MG/ML SYRINGE IV PRN (15:23)
[2020-03-27] MEDS ORDERED: MORPHINE SULFATE 4 MG/ML SYRINGE IVP ONE (15:23)
[2020-03-27] MEDS ORDERED: LORazepam 2 MG/ML INJ IV PRN (15:23)
[2020-03-27] MEDS ORDERED: SCOPOLAMINE 1.5MG/72HR PATCH TRANSDERM SCH (15:30)
[2020-03-27] MEDS ORDERED: MORPHINE SULFATE (100 MG/2 ML) 100 MG in SODIUM CHLORIDE 0.9% 100 ML IV SCH (15:30)
[2020-03-27 17:25] LABS: Glucose,Whole Blood 114 mg/dL (75-99)
[2020-03-27 19:10] VITALS: BP 137/82; PULSE 82
[2020-03-28] MEDS ORDERED: REMDESIVIR 100 MG in SODIUM CHLORIDE 0.9% 250 ML IVPB SCH (12:00)
--- NOTE | 2020-03-28 21:07 | P.DS ---
Providers Date of admission: 03/25/20 17:46 Expected date of discharge: 03/27/20 (Patient ) Attending physician: Stevo Guevara Consults: 03/25/20 17:46 Consult Physician Urgent Consulting Provider: Ciro Guerra Consult Reason/Comments: N STEMI Do you want consulting provider notified?: Already Contacted Consult Physician Urgent Consulting Provider: Nabeel Montgomery Consult Reason/Comments: COPD exacerbation with Covid 19 Do you want consulting provider notified?: Already Contacted Primary care physician: Harvinder Jimenez MD Hospital Course: Chief Complaint: short of breath History of present complaint: This is a very pleasant 89year-old patient of Dr. jimenez . Chronic stable medical conditions include COPD, BPH, hypothyroid hypertension, hyperlipidemia, coronary artery disease, mild cognitive impairment, coronary artery disease with prior stent, chronic kidney disease stage III..rectal stricture, chronic diverticulosis. Has a long-standing history of chronic dizziness. patient now presents with progressive short of breath for about a week. He normally has about 2 L of oxygen at home. He was found outfitting his oxygen he was cyanotic and minimally responsive and then in [id number]%.He'shadacoughandafever.Slightlyconfused. Patient continued to deteriorate. Family came in. Patient's family decided to become comfort measures. Later succumbed to the same. Total time spent today more than 35 minutes Mortgage Servicing Specialist: Cardiology associates Dr. Waed from pulmonary Investigations: white count 10.4 hemoglobin 12.7 lymphocytes 0.3 d-dimer 13.37 potassium 3.1 Bun 41 creatinine 1.97 lactic acid 3.5 troponin I 0.156, 0.204, 0.157 CRP 79.1 proBNP 1990pro-calcitonin 0.30 Coronavirus PCR detected, influenza type A type B both negative EKG tracing personally reviewed by me-Sinus rhythm some ST segment changes Chest x-ray film personally reviewed by me-Some interstitial changes Cause of : -acute COVID 19 pneumonia Other medical conditions -Acute hypoxic respiratory failure currently on 10 L of oxygen -Chronic hypoxic respiratory failure on 2 L of oxygen at home -Acute myocarditis due to COVID 19. -acute COPD exacerbation in an ex-smoker -Mild cognitive impairment from underlying dementia -Hyperlipidemia -Essential hypertension -Coronary artery disease with prior history of stent -Chronic kidney disease stage III from nephrosclerosis -BPH -Hypothyroid -Broad-based umbilical hernia Disposition: Patient Plan - Discharge Summary Discharge Rx Participant: No New Discharge Prescriptions: No Action Nitroglycerin Sl Tabs [Nitrostat] 0.4 mg SUBLINGUAL Q5M PRN PRN Reason: Chest Pain Mirtazapine [Remeron] 30 mg PO HS Metoprolol Succinate (ER) [Toprol XL] 25 mg PO BID Memantine [Namenda] 10 mg PO AC-BID Furosemide [Lasix] 40 mg PO DAILY DULoxetine HCL [Cymbalta] 30 mg PO BID Digoxin [Lanoxin] 125 mcg PO DAILY Aspirin EC [Ecotrin Low Dose] 81 mg PO DAILY ALPRAZolam [Xanax] 0.5 mg PO BID PRN PRN Reason: Anxiety Levothyroxine Sodium [Synthroid] 125 mcg PO DAILY Atorvastatin [Lipitor] 40 mg PO DAILY Fluticasone Nasal [place] [Flonase Nasal [place]] 1 spr EA NOSTRIL DAILY Tamsulosin [Flomax] 0.4 mg PO DAILY Vitamin D3 50,000iu 50,000 unit PO Q7D Ipratropium-Albuterol Nebulize [Duoneb 0.5 mg-3 mg/3 ml Soln] 3 ml INHALATION RT-QID Omeprazole [PriLOSEC] 20 mg PO AC-BID #60 cap ARIPiprazole [Abilify] 10 mg PO HS Diphenoxylate HCl/Atropine [Lomotil 2.5-0.025 mg Tablet] 2 tab PO QID PRN PRN Reason: Diarrhea Meclizine [Antivert] 25 mg PO TID oxyCODONE-APAP 10-325MG [Percocet 10-325 mg] 1 tab PO TID PRN PRN Reason: Pain Acetaminophen Tab [Tylenol] 650 mg PO Q4HR PRN PRN Reason: Fever And/ Or Pain Discharge Medication List ALPRAZolam [Xanax] 0.5 mg PO BID PRN 01/21/17 [History] Aspirin EC [Ecotrin Low Dose] 81 mg PO DAILY 01/21/17 [History] Atorvastatin [Lipitor] 40 mg PO DAILY 01/21/17 [History] DULoxetine HCL [Cymbalta] 30 mg PO BID 01/21/17 [History] Digoxin [Lanoxin] 125 mcg PO DAILY 01/21/17 [History] Furosemide [Lasix] 40 mg PO DAILY 01/21/17 [History] Levothyroxine Sodium [Synthroid] 125 mcg PO DAILY 01/21/17 [History] Memantine [Namenda] 10 mg PO AC-BID 01/21/17 [History] Metoprolol Succinate (ER) [Toprol XL] 25 mg PO BID 01/21/17 [History] Mirtazapine [Remeron] 30 mg PO HS 01/21/17 [History] Nitroglycerin Sl Tabs [Nitrostat] 0.4 mg SUBLINGUAL Q5M PRN 01/21/17 [History] Fluticasone Nasal [place] [Flonase Nasal [place]] 1 spr EA NOSTRIL DAILY 04/09/19 [History] Tamsulosin [Flomax] 0.4 mg PO DAILY 04/09/19 [History] Ipratropium-Albuterol Nebulize [Duoneb 0.5 mg-3 mg/3 ml Soln] 3 ml INHALATION RT-QID 10/29/19 [History] Vitamin D3 50,000iu 50,000 unit PO Q7D 10/29/19 [History] Omeprazole [PriLOSEC] 20 mg PO AC-BID #60 cap 11/02/19 [Rx] ARIPiprazole [Abilify] 10 mg PO HS 03/25/20 [History] Acetaminophen Tab [Tylenol] 650 mg PO Q4HR PRN 03/25/20 [History] Diphenoxylate HCl/Atropine [Lomotil 2.5-0.025 mg Tablet] 2 tab PO QID PRN 03/25/20 [History] Meclizine [Antivert] 25 mg PO TID 03/25/20 [History] oxyCODONE-APAP 10-325MG [Percocet 10-325 mg] 1 tab PO TID PRN 03/25/20 [History] Follow up Appointment(s)/Referral(s): Harvinder Jimenez MD [Primary Care Provider] - 1-2 days Discharge Disposition: - Preliminary Cause of Preliminary Cause of : COVID-19 pneumonia
--- NOTE | 2020-04-02 08:10 | CDI ---
Documentation Clarification Form Date: 04/02/2020 07:57:59 AM From: Nicole Alvarenga CCS, CCDS Admit Date: 03/25/2020 05:46:00 PM Patient Name: Maxime Cavanaugh Visit Number: [id number] Discharge Date: 03/27/2020 09:15:00 PM ATTENTION: The Clinical Documentation Specialists (CDI) and [facility] Coding Staff appreciate your assistance in clarifying documentation. Please respond to the clarification below the line at the bottom and electronically sign. The CDI & [facility] Coding staff will review the response and follow-up if needed. Please note: Queries are made part of the Legal Health Record. If you have any questions, please contact the author of this message via ITS. Dr. Christine Wade: This patient is admitted with Acute Respiratory Distress Syndrome per the ED note on 03/25. ARDS is not further documented. History/Risk Factors: COPD, Chronic Hypoxic Respiratory Failure, CAD with history of [place], Stents & Pacemaker, Chronic Systolic CHF, CKD III, Hypertension, PVD with Thoracic Aortic Aneurysm with repair, Hypothyroidism, Dementia, Former smoker. Clinical Indicators: 89 yo male, presented to the ED on 03/25 via EMS with SOB x1 week, recent exposure to COVID 19, found not wearing his Home O2 (normally 2Lnc), he was cyanotic & minimally responsive, PO 70%, also had a cough & fever. Vital Signs 03/25: T 100.5^, P 90, R 24 (sob), BP 138/83 - 94/66*, PO 98 15L nrb Treatment 03/25: INH Ventolin, IV fluid 1,000 mls @ 999 mls/hr q1, IV fluid 1,000 mls @ 130 mls/hr q7, I Kcl, IV Pepcid, IV Heparin, IV Decadron, INH Duoneb: Albuterol/Ipratropium. O2 15L nrb - 4Lnc In order to accurately reflect the severity of the patient's condition, please clarify the following: Acute Respiratory Distress Syndrome ruled out Acute Respiratory Distress Syndrome ruled in: o With Other Respiratory Condition, please specify Other, please specify: Unable to determine (Last Revision: January 2017) Acute Respiratory Distress Syndrome ruled in: KIMMIE NORWOOD
== END 2020-03-27 21:15 | disposition expired | DRG 177 ==
LOC: EC 16:01 → 3SCARD 17:46
PROVIDERS: ADMIT Hospitalist; ATTEND Hospitalist
PROC: XW033E5 Introduction of Remdesivir Anti-infective into Peripheral Vein, Percutaneous Approach, New Technology Group 5 (ICD-10-PCS; principal; 2020-03-27)
DX: U07.1 COVID-19 (principal); J12.89 Other viral pneumonia; I21.A1 Myocardial infarction type 2; J80 Acute respiratory distress syndrome; I13.0 Hypertensive heart and chronic kidney disease with heart failure and stage 1 through stage 4 chronic kidney disease, or unspecified chronic kidney disease; I50.22 Chronic systolic (congestive) heart failure; J44.1 Chronic obstructive pulmonary disease with (acute) exacerbation; J44.0 Chronic obstructive pulmonary disease with (acute) lower respiratory infection; Z51.5 Encounter for palliative care; N40.0 Benign prostatic hyperplasia without lower urinary tract symptoms; I25.119 Atherosclerotic heart disease of native coronary artery with unspecified angina pectoris; E78.5 Hyperlipidemia, unspecified; E03.9 Hypothyroidism, unspecified; D72.810 Lymphocytopenia; F32.9 Major depressive disorder, single episode, unspecified; E87.6 Hypokalemia; N18.30 Chronic kidney disease, stage 3 unspecified; K57.90 Diverticulosis of intestine, part unspecified, without perforation or abscess without bleeding; K42.9 Umbilical hernia without obstruction or gangrene; F03.90 Unspecified dementia, unspecified severity, without behavioral disturbance, psychotic disturbance, mood disturbance, and anxiety; I44.4 Left anterior fascicular block; I25.5 Ischemic cardiomyopathy; I73.9 Peripheral vascular disease, unspecified; K62.4 Stenosis of anus and rectum; Z95.0 Presence of cardiac pacemaker; Z95.5 Presence of coronary angioplasty implant and graft; Z87.891 Personal history of nicotine dependence; Z85.038 Personal history of other malignant neoplasm of large intestine; Z79.899 Other long term (current) drug therapy; Z79.890 Hormone replacement therapy; Z79.82 Long term (current) use of aspirin; Z88.1 Allergy status to other antibiotic agents; Z88.8 Allergy status to other drugs, medicaments and biological substances; I25.2 Old myocardial infarction; Z98.890 Other specified postprocedural states; Z82.49 Family history of ischemic heart disease and other diseases of the circulatory system; Z81.1 Family history of alcohol abuse and dependence; Z99.81 Dependence on supplemental oxygen; Z95.828 Presence of other vascular implants and grafts
CPT/HCPCS: 36415; 36600; 71045; 80053; 80061; 80162; 82550; 82728; 82805; 83605; 83615; 83735; 83880; 84145; 84484; 85025; 85379; 85610; 85730; 86140; 87040; 87502; 93005; 93306; 94640; 94760; 96365; 96366; 96368; 96375; 96376; 99291